=== PATIENT | male | born 1940 ===

== ENCOUNTER 2016-10-04 14:03 | Inpatient (IN) | payer MEDICARE, MEDICAID ==
[2016-10-04 14:03] VITALS: BMI 51.5
[2016-10-04] MEDS ORDERED: Sodium Chloride 0.9% 1,000 ML IV STA (14:45)
[2016-10-04] MEDS ORDERED: Insulin Regular 100 units/ml IVP ONE ×2 (15:03→17:11)
--- NOTE | 2016-10-04 15:05 | ED PDOC ---
HPI: General Adult Time Seen by Provider: 10/04/16 14:45 Chief Complaint (Nursing): High Blood Sugar Chief Complaint (Provider): high blood sugar History Per: Patient History/Exam Limitations: no limitations Current Symptoms Are (Timing): Still Present Severity: Severe Recently: Treated By A Physician ([facility]) Additional History Per: Prior Records Additional Complaint(s): 76yo male Hx DM sent by PMD for general weakness, elevated blood sugars. Denies fever, cough, chest pain, syncope. Does admit to polyuria, denies abdominal pain. Denies black or maroon stools. Denies BRBPR, hematuria or hemoptysis. PMD: Dr. Madrigal per patient Past Medical History Reviewed: Historical Data, Nursing Documentation, Vital Signs Vital Signs: Last Vital Signs Temp 98.0 F 10/05/16 16:00 Pulse 63 10/05/16 16:00 Resp 18 10/05/16 16:00 BP 108/66 10/05/16 16:00 Pulse Ox 97 10/05/16 16:35 - Medical History PMH: Diabetes (type II) Denies: HIV, Chronic Kidney Disease - Family History Family History: States: Diabetes - Social History Current smoker - smoking cessation education provided: No Drugs: Denies - Immunization History Hx Tetanus Toxoid Vaccination: No Hx Influenza Vaccination: No Hx Pneumococcal Vaccination: No - Home Medications Home Medications: Ambulatory Orders Medication Instructions Recorded Acetaminophen [Tylenol 325mg tab] 650 mg PO Q6 PRN #30 tab 09/26/16 Atorvastatin Calcium 10 mg PO DAILY #30 tablet 09/26/16 Enalapril Maleate [Vasotec] 2.5 mg PO DAILY #30 tab 09/26/16 Glimepiride [Amaryl] 4 mg PO BID #60 tablet 09/26/16 Insulin Glargine, Recombina 10 units SQ HS #100 unit 09/26/16 [Lantus] Linagliptin [Tradjenta] 5 mg PO DAILY #30 tablet 09/26/16 Pioglitazone HCl 30 mg PO DAILY #30 tablet 09/26/16 SITagliptin [Januvia] 100 mg PO DAILY #30 tab 09/26/16 - Allergies Allergies/Adverse Reactions: Allergies Allergy/AdvReac Type Severity Reaction Status Date / Time No Known Allergies Allergy Verified 09/11/15 13:57 Review of Systems ROS Statement: Except As Marked, All Systems Reviewed And Found Negative Constitutional: Negative for: Fever Cardiovascular: Negative for: Chest Pain Respiratory: Negative for: Cough Gastrointestinal: Negative for: Abdominal Pain Genitourinary Male: Positive for: Other (polyuria) Physical Exam - Reviewed Nursing Documentation Reviewed: Yes Vital Signs Reviewed: Yes - Physical Exam Appears: Positive for: Well (frail appearing, dehydrated appearing, communicative, no distress), Non-toxic, No Acute Distress Head Exam: Positive for: ATRAUMATIC, NORMAL INSPECTION, NORMOCEPHALIC Skin: Positive for: Warm, Dry Eye Exam: Positive for: EOMI, PERRL Cardiovascular/Chest: Positive for: Regular Rate, Rhythm Respiratory: Positive for: Normal Breath Sounds. Negative for: Rales, Rhonchi, Wheezing Gastrointestinal/Abdominal: Positive for: Soft. Negative for: Tenderness Extremity: Positive for: Other (bilateral index fingers with bleeding under the nail but patient denies any trauma - appearance of fungal infections. Neurologically intact) Neurologic/Psych: Positive for: Alert, Oriented. Negative for: Motor/Sensory Deficits - Laboratory Results Result Diagrams: 10/05/16 10:27 10/04/16 14:50 - ECG O2 Sat by Pulse Oximetry: 97 (RA) Pulse Ox Interpretation: Normal Medical Decision Making Medical Decision Makin accuchek was 496, therefore IV fluids and insulin therapy was initiated. will reeval after bloodwork is back. bloodwork revealed Hgb 7.6, per chart guiac negative last visit. Marked hyperglycemia without evidence of DKA. D/w hospitalist Dr Michel who states she spoke to Dr Madrigal and he is not known patient to practice, thus admitted to medicine train electronic technician for further workup. Glycemic control initiated in ED. Crossmatch 2 units PRBC obtained, consent for transfusion obtained and witnessed by RN. Care was transferred to admitting team. Disposition - Clinical Impression Clinical Impression: Hyperglycemia, Anemia - Patient ED Disposition Is Patient to be Admitted: Yes Counseled Patient/Family Regarding: Studies Performed, Diagnosis - Disposition Disposition Time: 16:00 (approx) Condition: FAIR - Pt Status Changed To: Hospital Disposition Of: Observation - POA Present On Arrival: Poor Glycemic Control Additional Comments - Additional Comments Additional Comments: Scribe Attestation: Documented by Nick Shaikh acting as a scribe for Juan Daniel Ramirez DO. Provider Scribe Attestation: All medical record entries made by the Scribe were at my direction and personally dictated by me. I have reviewed the chart and agree that the record accurately reflects my personal performance of the history, physical exam, medical decision making, and the department course for this patient. I have also personally directed, reviewed, and agree with the discharge instructions and disposition.
[2016-10-04] MEDS ORDERED: Insulin Regular 100 units/ml ONE (15:16)
[2016-10-04 15:55] LABS: BASO # 0.1 K/uL (0.0-0.2); BASO % 1.5 % (0.0-2.0); EOS # 0.6 K/uL (0.0-0.7); EOS % 8.5 % (0.0-4.0); HEMATOCRIT 25.9 % (35.0-51.0); LYMPH % 14.4 % (20.0-40.0); MEAN CELL VOLUME 68.5 fl (80.0-94.0); MEAN CORPUSCULAR HEMOGLOBIN 20.2 pg (27.0-31.0); MEAN CORPUSCULAR HGB CONC 29.4 g/dL (33.0-37.0); MEAN PLATELET VOLUME 9.2 fl (7.2-11.7); MONO # 0.7 K/uL (0.0-0.8); MONO % 10.1 % (0.0-10.0); NEUT # 4.7 K/uL (1.8-7.0); NEUT % 65.5 % (50.0-75.0); RED CELL DISTRIBUTION WIDTH 26.9 % (11.5-14.5); WHITE BLOOD COUNT 7.2 K/uL (4.8-10.8)
[2016-10-04 16:08] LABS: ALKALINE PHOSPHATASE 97 U/L (38-126); ALT/SGPT 27 U/L (21-72); AST/SGOT 21 U/L (17-59); BILIRUBIN,TOTAL 0.2 mg/dl (0.2-1.3); BLOOD UREA NITROGEN 17 mg/dl (9-20); CARBON DIOXIDE 26 mmol/L (22-30); CHLORIDE 92 mmol/L (98-107); GFR AFRICAN-AMERICAN > 60; POTASSIUM 4.4 MMOL/L (3.6-5.0); SODIUM 127 mmol/l (132-148)
[2016-10-04 16:10] LABS: TOTAL PROTEIN 7.4 G/DL (6.3-8.2)
[2016-10-04 16:28] LABS: ALB/GLOB RATIO 1.1 (1.0-2.1)
[2016-10-04 16:31] LABS: GLUCOSE,RANDOM 441 mg/dL (75-110)
[2016-10-04 18:21] LABS: RBC URINE 22 /hpf (0-3); URINE BACTERIA RARE (<OCC); URINE BILIRUBIN NEGATIVE (NEGATIVE); URINE BLOOD NEGATIVE (NEGATIVE); URINE COLOR YELLOW (YELLOW); URINE GLUCOSE (UA) >=500 mg/dL (Normal); URINE KETONE NEGATIVE (NEGATIVE); URINE LEUKOCYTE ESTERASE LARGE Leu/uL (Negative); URINE PROTEIN NEGATIVE (NEGATIVE); URINE UROBILINOGEN 0.2-1.0 mg/dL (0.2-1.0); WBC URINE 51 /hpf (0-5)
[2016-10-04] MEDS ORDERED: Insulin Detemir 100 Units/ml Inj SC SCH (23:00)
[2016-10-04] MEDS: Insulin Regular 100 units/ml SC SCH (23:13)
[2016-10-05] MEDS: Insulin Regular 100 units/ml SC SCH ×2 (06:46→13:31)
[2016-10-05] MEDS ORDERED: Pneumococcal 23-Valent Vaccine IM ONE (07:00)
--- NOTE | 2016-10-05 07:15 | CARD ---
APPROVED REPORT EKG Measurement Heart [id number] <Conclusion> Sinus rhythm with premature atrial complexes Otherwise normal ECG
[2016-10-05] MEDS: Enoxaparin 40 mg Syringe SC SCH (09:22)
[2016-10-05] MEDS: GlipiZIDE 10 mg SR Tab PO SCH ×2 (09:23→18:07)
--- NOTE | 2016-10-05 10:21 | CP.PCM.CON ---
Past Patient History - Past Medical History & Family History Past Medical History?: Yes - Past Social History Smoking Status: Current Some Days Smoker - CARDIAC Hx Cardiac Disorders: No - PULMONARY Hx Respiratory Disorders: No - NEUROLOGICAL Hx Neurological Disorder: No - HEENT Hx HEENT Problems: No - RENAL Hx Chronic Kidney Disease: No - ENDOCRINE/METABOLIC Hx Endocrine Disorders: Yes Hx Diabetes Mellitus Type 2: Yes - HEMATOLOGICAL/ONCOLOGICAL Hx Human Immunodeficiency Virus (HIV): No - INTEGUMENTARY Hx Dermatological Problems: No - MUSCULOSKELETAL/RHEUMATOLOGICAL Hx Falls: No - GASTROINTESTINAL Hx Gastrointestinal Disorders: No - GENITOURINARY/GYNECOLOGICAL Hx Genitourinary Disorders: No - PSYCHIATRIC Hx Substance Use: No - SURGICAL HISTORY Hx Surgeries: Yes Hx Herniorrhaphy: Yes (inguinal x2) - ANESTHESIA Hx Anesthesia: Yes Hx Anesthesia Reactions: No Hx Malignant Hyperthermia: No Meds Allergies/Adverse Reactions: Allergies Allergy/AdvReac Type Severity Reaction Status Date / Time No Known Allergies Allergy Verified 09/11/15 13:57 - Medications Medications: Current Medications Acetaminophen (Tylenol 325mg Tab) 650 mg PO Q6 PRN PRN Reason: Pain, Mild (1-3) Atorvastatin Calcium (Lipitor) 10 mg PO DAILY [facility] Last Admin: 10/05/16 09:22 Dose: 10 mg Enalapril Maleate (Vasotec) 2.5 mg PO BID [facility] Last Admin: 10/05/16 09:22 Dose: 2.5 mg Enoxaparin Sodium (Lovenox) 40 mg SC DAILY [facility] PRN Reason: Protocol Last Admin: 10/05/16 09:22 Dose: 40 mg Glipizide (Glucotrol Xl) 10 mg PO BIDWM [facility] Last Admin: 10/05/16 09:23 Dose: 10 mg Insulin Detemir (Levemir) 10 units SC [facility] Last Admin: 10/04/16 23:14 Dose: 10 units Insulin Human Regular (Humulin R) 0 units SC ACCU-CHECK [facility] PRN Reason: Protocol Last Admin: 10/05/16 06:46 Dose: Not Given Sitagliptin Phosphate (Januvia) 100 mg PO DAILY [facility] Last Admin: 10/05/16 09:23 Dose: 100 mg Results - Vital Signs Recent Vital Signs: Last Vital Signs Temp 97.9 F 10/05/16 08:16 Pulse 73 10/05/16 08:16 Resp 18 10/05/16 08:16 BP 151/77 H 10/05/16 08:16 Pulse Ox 100 10/05/16 08:16 - Labs Result Diagrams: 10/04/16 14:50 10/04/16 14:50 Labs: Laboratory Results - last 24 hr 10/04/16 10/04/16 10/04/16 17:07 17:21 17:38 POC Glucose (mg/dL) 203 H Urine Color Yellow Urine Clarity Slighty-cloudy Urine pH 7.0 Ur Specific [place] 1.033 H Urine Protein Negative Urine Glucose (UA) >=500 Urine Ketones Negative Urine Blood Negative Urine Nitrate Negative Urine Bilirubin Negative Urine Urobilinogen 0.2-1.0 Ur Leukocyte Esterase Large Urine RBC (Auto) 22 H Urine Microscopic WBC 51 H Ur Squamous Epith Cells 1 Urine Bacteria Rare Urine Yeast (Budding) Occ H Blood Type A POSITIVE Antibody Screen Negative Crossmatch IS Only See Detail BBK History Checked Patient has bt 10/04/16 10/05/16 22:07 05:51 POC Glucose (mg/dL) 362 H 123 H Urine Color Urine Clarity Urine pH Ur Specific [place] Urine Protein Urine Glucose (UA) Urine Ketones Urine Blood Urine Nitrate Urine Bilirubin Urine Urobilinogen Ur Leukocyte Esterase Urine RBC (Auto) Urine Microscopic WBC Ur Squamous Epith Cells Urine Bacteria Urine Yeast (Budding) Blood Type Antibody Screen Crossmatch IS Only BBK History Checked
[2016-10-05 10:34] LABS: HEMATOCRIT 29.1 % (35.0-51.0); MEAN CORPUSCULAR HEMOGLOBIN 21.9 pg (27.0-31.0); MEAN CORPUSCULAR HGB CONC 30.7 g/dL (33.0-37.0); RED CELL DISTRIBUTION WIDTH 27.5 % (11.5-14.5)
[2016-10-05 10:38] LABS: MEAN CELL VOLUME 71.3 fl (80.0-94.0)
[2016-10-05 10:50] LABS: IRON 103 ug/dL (49-181)
--- NOTE | 2016-10-05 11:52 | RAD ---
HISTORY: SOB COMPARISON: 09/23/2026 FINDINGS: LUNGS: No active pulmonary disease. PLEURA: Probable eventration right hemidiaphragm, unchanged. No pleural effusion. No pneumothorax. CARDIOVASCULAR: Normal. OSSEOUS STRUCTURES: No significant abnormalities. VISUALIZED UPPER ABDOMEN: Normal. OTHER FINDINGS: None. IMPRESSION: No active disease.
--- NOTE | 2016-10-05 13:53 | CP.PCM.HP ---
<Natasha Lyles - Last Filed: 10/05/16 13:41> History of Present Illness - History of Present Illness History of Present Illness: 76 y/o insulin dependent Type II diabetic, HTN and HLD presented to ED with cc of weakness and polyuria, ED work up pt was anemic and very hyperglycemic, but was admitted for transfusion and diabetes control. pt seen and examined at bedside, denies bleeding anyway, denies abdominal pain,headache, visual changes , chest pain or sob. states he feels better. Does admitted the weakness he was feeling did start a couple of days prior to coming to ED. Present on Admission - Present on Admission Any Indicators Present on Admission: Yes History of Uncontrolled Diabetes: Yes Review of Systems - Review of Systems All systems: reviewed and no additional remarkable complaints except Review of Systems: Per HPI Past Patient History - Past Medical History & Family History Past Medical History?: Yes - Past Social History Smoking Status: Current Some Days Smoker - CARDIAC Hx Cardiac Disorders: No - PULMONARY Hx Respiratory Disorders: No - NEUROLOGICAL Hx Neurological Disorder: No - HEENT Hx HEENT Problems: No - RENAL Hx Chronic Kidney Disease: No - ENDOCRINE/METABOLIC Hx Endocrine Disorders: Yes Hx Diabetes Mellitus Type 2: Yes - HEMATOLOGICAL/ONCOLOGICAL Hx Human Immunodeficiency Virus (HIV): No - INTEGUMENTARY Hx Dermatological Problems: No - MUSCULOSKELETAL/RHEUMATOLOGICAL Hx Falls: No - GASTROINTESTINAL Hx Gastrointestinal Disorders: No - GENITOURINARY/GYNECOLOGICAL Hx Genitourinary Disorders: No - PSYCHIATRIC Hx Substance Use: No - SURGICAL HISTORY Hx Surgeries: Yes Hx Herniorrhaphy: Yes (inguinal x2) - ANESTHESIA Hx Anesthesia: Yes Hx Anesthesia Reactions: No Hx Malignant Hyperthermia: No Meds Allergies/Adverse Reactions: Allergies Allergy/AdvReac Type Severity Reaction Status Date / Time No Known Allergies Allergy Verified 10/07/16 18:19 Physical Exam - Constitutional Appears: No Acute Distress, Older Than Stated Age Additional comments: very fragile appearing - Head Exam Head Exam: NORMOCEPHALIC - Eye Exam Eye Exam: Normal appearance - ENT Exam ENT Exam: Mucous Membranes Moist - Respiratory Exam Respiratory Exam: Clear to Auscultation Bilateral, NORMAL BREATHING PATTERN. absent: Wheezes - Cardiovascular Exam Cardiovascular Exam: REGULAR RHYTHM, +S1, +S2 - GI/Abdominal Exam GI & Abdominal Exam: Normal Bowel Sounds, Soft. absent: Tenderness - Extremities Exam Extremities exam: Negative for: calf tenderness, joint swelling, pedal edema - Neurological Exam Neurological exam: Alert, CN II-XII Intact, Oriented x3 Results - Vital Signs Recent Vital Signs: Last Vital Signs Temp 97.9 F 10/05/16 09:00 Pulse 73 10/05/16 09:00 Resp 18 10/05/16 09:00 BP 151/77 H 10/05/16 09:00 Pulse Ox 100 10/05/16 09:00 - Labs Result Diagrams: 10/05/16 10:27 10/04/16 14:50 Assessment & Plan - Assessment and Plan (Free Text) Assessment: 76 y/o male insulin dependent type II diabetic with HTN and HLD admitted for anemia and hyperglycemia Plan: 1. Anemia Source unknown GI and Hematology consulted Anemia work up ordered/ follow up results Transfused blood last night f/u cbc 2. Hyperglycemia currently controlled continue with home regime of 100mg januvia daily, 30mg of Pioglitazone, 5mg of tradjenta, 4mg of Amaryl and 10 units of lantus HS accuchecks hypoglycemic protocol Endocrinology consulted 3. HTN resume home med of Vasotec 4. HLD Continue Atorvastatin 5. Diet diabetic heart healthy 6. DVT prophylaxis lovenox 7. PT eval and treat ordered <Geraldo Shelton - Last Filed: 10/08/16 12:38> Results - Vital Signs Recent Vital Signs: Last Vital Signs Temp 97.9 F 10/07/16 17:48 Pulse 83 10/07/16 17:48 Resp 20 10/07/16 17:48 BP 150/88 10/07/16 17:48 Pulse Ox 99 10/07/16 17:48 - Labs Result Diagrams: 10/07/16 06:30 10/07/16 06:30 Labs: Laboratory Results - last 24 hr 10/07/16 10/07/16 05:34 16:28 POC Glucose (mg/dL) 306 H 128 H Assessment & Plan - Assessment and Plan (Free Text) Assessment: Patient was personally seen and examined by me in rounds with residents. Available labs and diagnostic data reviewed. Case, Patient's condition and management plan discussed with residents in rounds. Agree with resident's documentation. Plan: As ordered. Geraldo Shelton MD
[2016-10-05] MEDS: Insulin Lispro (humaLOG) 100 Units/ml Inj SC SCH ×3 (18:07→22:42)
[2016-10-05 18:38] LABS: FOLATE > 20.0 ng/mL
--- NOTE | 2016-10-05 21:07 | CON ---
DATE: 10/05/2016 LOCATION: Room 410. HISTORY OF PRESENT ILLNESS: This is a 76-year-old male with a known history of type 2 insulin-requir ing diabetes, presenting here with generalized body weakness and supervening marked hyperglycemic acc elerations and is now being referred for diabetic evaluation and management. He also has marked anem ia and is undergoing Hemoccult hematologic workup and management at this time. PAST MEDICAL HISTORY: As mentioned above, history of type 2 requiring type diabetes on a combination of oral hypoglycemic therapy and basal insulin given as Lantus at 10 units subQ at bedtime daily. H e is also on Amaryl given as 4 mg b.i.d., Januvia at 100 mg daily and Actos at 30 mg daily, history o f hypertension and dyslipidemia. FAMILY HISTORY: Positive for hypertension and diabetes. SOCIAL HISTORY: The patient has a supportive family. No known substance use. REVIEW OF SYSTEMS: As mentioned above, admits to generalized body weakness with episodic dizziness a nd lightheadedness, worse on the day of admission. No chest pains or palpitations, but admits to occ asional shortness of breath, especially on exertion. His oral intake is variable with nausea, dyspep poli, and vague upper abdominal pains. Also, admits to marked polyuria, nocturia and polydipsia, and about a 5-pound or so weight loss. PHYSICAL EXAMINATION: GENERAL: This is an average built male in no apparent distress. VITAL SIGNS: Blood pressure 144/82, pulse of 70 beats per minute and regular, temperature 98, respir ations 20. Height is 5 feet 7 inches, weight is 120 pounds. HEENT: Head normocephalic. Eyes anicteric with pink conjunctivae. Fundoscopy not possible at this time. Ears, nose and throat otherwise normal. NECK: Supple. Thyroid gland is normal size. No carotid bruits or any cervical adenopathy. CARDIOPULMONARY: Has an adynamic precordium. S1, S2 is rapid and regular. LUNGS: Clear to auscultation. ABDOMEN: Flat, soft with positive bowel sounds. EXTREMITIES: No peripheral edema. Pulses are +2 bilaterally. LABORATORY DATA: The chemistry showed a BUN of 17, sodium 127, potassium 4.4, chloride 92, CO2 of 26 , glucose 441 and creatinine 0.8. The initial glucose level was 496 mg/dL. ASSESSMENT: This is a 76-year-old male with uncontrolled and decompensated type 2 insulin-requiring diabetes with marked hyperglycemic accelerations related to a subtherapeutic insulin regimen and is n ow being referred for diabetic evaluation and management. 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 PLAN OF MANAGEMENT: As discussed with the patient and the staff. Will modify his current insulin re gimen and switch him over to a more physiologic basal and bolus drug combination with Levemir to be g iven at 16 units subcutaneously at bedtime daily to start tonight. Will also add Humalog given as 6 units subQ t.i.d. before meals to start at dinnertime today as ordered. Will modify the coverage sca le to obviate hypoglycemia and detailed orders have been given for a low dose algorithm using Humalog insulin as given. Will also continue the Januvia given as 100 mg daily. Will obtain serial industrial chemistry teacher jayden and supplement accordingly as needed. Will also obtain a hemoglobin A1c to confirm his prior gl ycemic control and baseline studies and lipid panel will be ordered. Will obtain serial chemis tries and supplement accordingly as needed. Will follow. Chasidy Chaudhari MD cc: [id number] TT: 10/05/2016 21:06:58 Confirmation # [id number] Dictation # [id number] mert
[2016-10-05] MEDS ORDERED: Insulin Detemir 100 Units/ml Inj SC SCH (22:00)
--- NOTE | 2016-10-05 23:02 | CP.PCM.CON ---
History of Present Illness - History of Present Illness History of Present Illness: Consult requested by Dr Shelton- This is a 76 y/o insulin dependent Type II diabetic, HTN and HLD admitted with weakness and polyuria in setting of uncontrolled hyperglycemia. GI consulted for anemia which seems chronic with baseline Hb 9-10 since 2013. He was seen at bedside and is unkept with bad personal hygiene. His FOBt is negative and he denies endoscopy/ colonoscopy in the past. He has been asking for more food as per nursing staff. He denies hematemesis, dark stools and rectal bleeding. He denies nausea, vomiting and fever, chills Review of Systems - Review of Systems Review of Systems: 12 point ROS unremarkable except that documented in HPI Past Patient History - Past Medical History & Family History Past Medical History?: Yes - Past Social History Drugs: Denies - CARDIAC Hx Cardiac Disorders: No - PULMONARY Hx Respiratory Disorders: No - NEUROLOGICAL Hx Neurological Disorder: No - HEENT Hx HEENT Problems: No - RENAL Hx Chronic Kidney Disease: No - ENDOCRINE/METABOLIC Hx Endocrine Disorders: Yes Hx Diabetes Mellitus Type 2: Yes - HEMATOLOGICAL/ONCOLOGICAL Hx Human Immunodeficiency Virus (HIV): No - INTEGUMENTARY Hx Dermatological Problems: No - MUSCULOSKELETAL/RHEUMATOLOGICAL Hx Falls: No - GASTROINTESTINAL Hx Gastrointestinal Disorders: No - GENITOURINARY/GYNECOLOGICAL Hx Genitourinary Disorders: No - PSYCHIATRIC Hx Substance Use: No - SURGICAL HISTORY Hx Surgeries: Yes Hx Herniorrhaphy: Yes (inguinal x2) - ANESTHESIA Hx Anesthesia: Yes Hx Anesthesia Reactions: No Hx Malignant Hyperthermia: No Meds Allergies/Adverse Reactions: Allergies Allergy/AdvReac Type Severity Reaction Status Date / Time No Known Allergies Allergy Verified 09/11/15 13:57 - Medications Medications: Current Medications Acetaminophen (Tylenol 325mg Tab) 650 mg PO Q6 PRN PRN Reason: Pain, Mild (1-3) Atorvastatin Calcium (Lipitor) 10 mg PO DAILY [facility] Last Admin: 10/05/16 09:22 Dose: 10 mg Enalapril Maleate (Vasotec) 2.5 mg PO BID [facility] Last Admin: 10/05/16 16:36 Dose: 2.5 mg Enoxaparin Sodium (Lovenox) 40 mg SC DAILY [facility] PRN Reason: Protocol Last Admin: 10/05/16 09:22 Dose: 40 mg Glipizide (Glucotrol Xl) 10 mg PO BIDWM [facility] Last Admin: 10/05/16 18:07 Dose: 10 mg Iron Sucrose 200 mg/ Sodium (Chloride) 110 mls @ 110 mls/hr IVPB DAILY [facility] Stop: 10/08/16 10:31 Last Admin: 10/05/16 13:30 Dose: 110 mls/hr Insulin Detemir (Levemir) 16 units SC HS [facility] Last Admin: 10/05/16 22:43 Dose: 16 units Insulin Human Lispro (Humalog) 6 units SC AC [facility] Last Admin: 10/05/16 18:07 Dose: 6 unit Insulin Human Lispro (Humalog) 0 units SC ACHS [facility] PRN Reason: Protocol Last Admin: 10/05/16 22:42 Dose: Not Given Sitagliptin Phosphate (Januvia) 100 mg PO DAILY [facility] Last Admin: 10/05/16 09:23 Dose: 100 mg Physical Exam - Constitutional Appears: Non-toxic, No Acute Distress, Unkempt - Head Exam Head Exam: ATRAUMATIC, NORMAL INSPECTION, NORMOCEPHALIC - Respiratory Exam Respiratory Exam: Clear to Auscultation Bilateral, NORMAL BREATHING PATTERN - Cardiovascular Exam Cardiovascular Exam: REGULAR RHYTHM, RRR, +S1, +S2 - GI/Abdominal Exam GI & Abdominal Exam: Normal Bowel Sounds, Soft Additional comments: Non tender. No guarding - Extremities Exam Extremities exam: Positive for: normal inspection - Neurological Exam Neurological exam: Alert, CN II-XII Intact, Normal Gait, Oriented x3, Reflexes Normal - Psychiatric Exam Psychiatric exam: Normal Affect, Normal Mood Results - Vital Signs Recent Vital Signs: Last Vital Signs Temp 97.8 F 10/05/16 19:40 Pulse 85 10/05/16 19:40 Resp 20 10/05/16 19:40 BP 126/74 10/05/16 19:40 Pulse Ox 99 10/05/16 19:40 - Labs Result Diagrams: 10/05/16 10:27 10/04/16 14:50 Labs: Laboratory Results - last 24 hr 10/05/16 10/05/16 16:35 21:31 POC Glucose (mg/dL) 238 H 136 H Assessment & Plan - Assessment and Plan (Free Text) Assessment: 76 yr old M with poor compliance admitted with anemia and hyperglycemia. Anemia seems chronic with no overt/ occult GI hemorrhage. Will benefit from outpatient bi directional luminal exam once acute hyperglycemia has resolved. Currently he is ambivalent. Plan: - Trend daily Hb/Hct - Anemia work up - Hematology consult - no urgent indication for luminal exam - Send iron studies and peripheral smear - Diet as tolerated - Occult negative - GI prophylaxis - Date & Time Date: 10/05/16 Time: 23:00
--- NOTE | 2016-10-06 02:16 | CP.PCM.CON ---
History of Present Illness - History of Present Illness History of Present Illness: 76 year old male with a history of DM, HTN, HL, admitted with fatigue and polyuria, found to be anemic. The patient reports to increasing weakness over the last 2 weeks. He states he was told he was anemic but is unclear of the work up in the past. He denies abnormal bleeding and bruising. He has no fevers and chills. Past medical history: DM, HTN, HL Past surgical history: None Family history: Denies hematologic and oncologic problems Social history: Denies tobacco, alcohol, and illicit drug use. Allergies: NKA Review of systems: All remaining review of systems including HEENT, cardiovascular, respiratory, gastrointestinal, genitourinary, musculoskeletal, dermatologic, neurologic, and psychiatric are negative unless mentioned in the history of present illness. Past Patient History - Past Medical History & Family History Past Medical History?: Yes - Past Social History Drugs: Denies - CARDIAC Hx Cardiac Disorders: No - PULMONARY Hx Respiratory Disorders: No - NEUROLOGICAL Hx Neurological Disorder: No - HEENT Hx HEENT Problems: No - RENAL Hx Chronic Kidney Disease: No - ENDOCRINE/METABOLIC Hx Endocrine Disorders: Yes Hx Diabetes Mellitus Type 2: Yes - HEMATOLOGICAL/ONCOLOGICAL Hx Human Immunodeficiency Virus (HIV): No - INTEGUMENTARY Hx Dermatological Problems: No - MUSCULOSKELETAL/RHEUMATOLOGICAL Hx Falls: No - GASTROINTESTINAL Hx Gastrointestinal Disorders: No - GENITOURINARY/GYNECOLOGICAL Hx Genitourinary Disorders: No - PSYCHIATRIC Hx Substance Use: No - SURGICAL HISTORY Hx Surgeries: Yes Hx Herniorrhaphy: Yes (inguinal x2) - ANESTHESIA Hx Anesthesia: Yes Hx Anesthesia Reactions: No Hx Malignant Hyperthermia: No Meds Allergies/Adverse Reactions: Allergies Allergy/AdvReac Type Severity Reaction Status Date / Time No Known Allergies Allergy Verified 09/11/15 13:57 - Medications Medications: Current Medications Acetaminophen (Tylenol 325mg Tab) 650 mg PO Q6 PRN PRN Reason: Pain, Mild (1-3) Atorvastatin Calcium (Lipitor) 10 mg PO DAILY [facility] Last Admin: 10/05/16 09:22 Dose: 10 mg Enalapril Maleate (Vasotec) 2.5 mg PO BID [facility] Last Admin: 10/05/16 16:36 Dose: 2.5 mg Enoxaparin Sodium (Lovenox) 40 mg SC DAILY [facility] PRN Reason: Protocol Last Admin: 10/05/16 09:22 Dose: 40 mg Glipizide (Glucotrol Xl) 10 mg PO BIDWM [facility] Last Admin: 10/05/16 18:07 Dose: 10 mg Iron Sucrose 200 mg/ Sodium (Chloride) 110 mls @ 110 mls/hr IVPB DAILY [facility] Stop: 10/08/16 10:31 Last Admin: 10/05/16 13:30 Dose: 110 mls/hr Insulin Detemir (Levemir) 16 units SC HS [facility] Last Admin: 10/05/16 22:43 Dose: 16 units Insulin Human Lispro (Humalog) 6 units SC AC [facility] Last Admin: 10/05/16 18:07 Dose: 6 unit Insulin Human Lispro (Humalog) 0 units SC ACHS [facility] PRN Reason: Protocol Last Admin: 10/05/16 22:42 Dose: Not Given Sitagliptin Phosphate (Januvia) 100 mg PO DAILY [facility] Last Admin: 10/05/16 09:23 Dose: 100 mg Physical Exam - Head Exam Head Exam: ATRAUMATIC - Eye Exam Eye Exam: Normal appearance - ENT Exam ENT Exam: Mucous Membranes Dry - Respiratory Exam Respiratory Exam: NORMAL BREATHING PATTERN - Cardiovascular Exam Cardiovascular Exam: +S1, +S2 - GI/Abdominal Exam GI & Abdominal Exam: Normal Bowel Sounds - Extremities Exam Extremities exam: Positive for: normal inspection - Neurological Exam Neurological exam: Oriented x3 - Psychiatric Exam Psychiatric exam: Normal Affect, Normal Mood - Skin Skin Exam: Warm Results - Vital Signs Recent Vital Signs: Last Vital Signs Temp 98.4 F 10/06/16 00:06 Pulse 80 10/06/16 00:06 Resp 18 10/06/16 00:06 BP 148/77 10/06/16 00:06 Pulse Ox 100 10/06/16 00:06 - Labs Result Diagrams: 10/05/16 10:27 10/04/16 14:50 Labs: Laboratory Results - last 24 hr 10/05/16 10/05/16 16:35 21:31 POC Glucose (mg/dL) 238 H 136 H Assessment & Plan (1) Anemia Assessment and Plan: work up consistent with iron deficiency transfusion support will start IV iron GI evaluation Thank you for this interesting consult. Status: Acute
[2016-10-06 07:09] LABS: HEMATOCRIT 29.1 % (35.0-51.0); MEAN CELL VOLUME 71.5 fl (80.0-94.0); MEAN CORPUSCULAR HEMOGLOBIN 22.2 pg (27.0-31.0); MEAN CORPUSCULAR HGB CONC 31.1 g/dL (33.0-37.0); WHITE BLOOD COUNT 8.9 K/uL (4.8-10.8)
[2016-10-06 07:17] LABS: ALKALINE PHOSPHATASE 81 U/L (38-126); ALT/SGPT 25 U/L (21-72); AST/SGOT 25 U/L (17-59); BILIRUBIN,TOTAL 0.2 mg/dl (0.2-1.3); BLOOD UREA NITROGEN 13 mg/dl (9-20); CALCIUM 8.4 mg/dL (8.4-10.2); CARBON DIOXIDE 29 mmol/L (22-30); CHLORIDE 102 mmol/L (98-107); CHOLESTEROL 103 mg/dL (0-199); GFR AFRICAN-AMERICAN > 60; GLUCOSE,RANDOM 66 mg/dL (75-110); POTASSIUM 3.9 MMOL/L (3.6-5.0); SODIUM 133 mmol/l (132-148); TOTAL PROTEIN 6.4 G/DL (6.3-8.2)
[2016-10-06 07:36] LABS: THYROID STIMULATING HORMONE 0.79 mIU/ML (0.46-4.68)
[2016-10-06] MEDS: Insulin Lispro (humaLOG) 100 Units/ml Inj SC SCH ×7 (08:01→22:44)
[2016-10-06] MEDS: GlipiZIDE 10 mg SR Tab PO SCH ×2 (08:39→17:54)
[2016-10-06] MEDS: Enoxaparin 40 mg Syringe SC SCH (08:43)
--- NOTE | 2016-10-06 12:49 | CP.PCM.PN ---
<RafalNatasha - Last Filed: 10/06/16 12:50> Subjective - Date & Time of Evaluation Date of Evaluation: 10/06/16 Time of Evaluation: 08:35 - Subjective Subjective: Pt seen and examined at bedside, states he feels fine. denies any weakness, sugars are better now. denies any dizziness, nausea or vomiting. Objective - Vital Signs/Intake and Output Vital Signs (last 24 hours): Temp Pulse Resp BP Pulse Ox 98.5 F 79 18 130/76 98 10/06/16 12:25 10/06/16 12:25 10/06/16 12:25 10/06/16 12:25 10/06/16 12:25 - Medications Medications: Current Medications Acetaminophen (Tylenol 325mg Tab) 650 mg PO Q6 PRN PRN Reason: Pain, Mild (1-3) Atorvastatin Calcium (Lipitor) 10 mg PO DAILY [facility] Last Admin: 10/06/16 08:40 Dose: 10 mg Enalapril Maleate (Vasotec) 2.5 mg PO BID [facility] Last Admin: 10/06/16 08:41 Dose: 2.5 mg Enoxaparin Sodium (Lovenox) 40 mg SC DAILY [facility] PRN Reason: Protocol Last Admin: 10/06/16 08:43 Dose: 40 mg Glipizide (Glucotrol Xl) 10 mg PO BIDWM [facility] Last Admin: 10/06/16 08:39 Dose: 10 mg Iron Sucrose 200 mg/ Sodium (Chloride) 110 mls @ 110 mls/hr IVPB DAILY [facility] Stop: 10/08/16 10:31 Last Admin: 10/06/16 08:42 Dose: 110 mls/hr Insulin Detemir (Levemir) 16 units SC HS [facility] Last Admin: 10/05/16 22:43 Dose: 16 units Insulin Human Lispro (Humalog) 6 units SC AC [facility] Last Admin: 10/06/16 12:04 Dose: 6 unit Insulin Human Lispro (Humalog) 0 units SC ACHS [facility] PRN Reason: Protocol Last Admin: 10/06/16 12:05 Dose: 2 unit Sitagliptin Phosphate (Januvia) 100 mg PO DAILY [facility] Last Admin: 10/06/16 08:40 Dose: 100 mg - Labs Labs: 10/06/16 06:25 10/06/16 06:25 - Constitutional Appears: Non-toxic, No Acute Distress - Head Exam Head Exam: NORMOCEPHALIC - Eye Exam Eye Exam: Normal appearance - ENT Exam ENT Exam: Mucous Membranes Moist - Respiratory Exam Respiratory Exam: Clear to Ausculation Bilateral, NORMAL BREATHING PATTERN. absent: Rhonchi, Wheezes - Cardiovascular Exam Cardiovascular Exam: REGULAR RHYTHM, +S1, +S2 - GI/Abdominal Exam GI & Abdominal Exam: Soft, Normal Bowel Sounds. absent: Tenderness - Extremities Exam Extremities Exam: absent: Calf Tenderness, Pedal Edema - Neurological Exam Neurological Exam: Alert, Awake Assessment and Plan - Assessment and Plan (Free Text) Assessment: 76 y/o male insulin dependent type II diabetic with HTN and HLD admitted for anemia and hyperglycemia Plan: 1. Anemia Source unknown GI and Hematology recommendations appreciated Per hematology work up indicate iron deficiency, pt started on IV iron 2. Hyperglycemia - resolved currently controlled continue with home regime of 100mg januvia daily, 30mg of Pioglitazone, 5mg of tradjenta, 4mg of Amaryl and 10 units of lantus HS accuchecks hypoglycemic protocol Endocrinology consulted 3. HTN resume home med of Vasotec 4. HLD Continue Atorvastatin 5. Diet diabetic heart healthy 6. DVT prophylaxis lovenox 7. PT eval and treat ordered <Geraldo Shelton - Last Filed: 10/08/16 12:41> Objective - Vital Signs/Intake and Output Vital Signs (last 24 hours): Temp Pulse Resp BP Pulse Ox 97.9 F 83 20 150/88 99 10/07/16 17:48 10/07/16 17:48 10/07/16 17:48 10/07/16 17:48 10/07/16 17:48 - Labs Labs: 10/07/16 06:30 10/07/16 06:30 Assessment and Plan - Assessment and Plan (Free Text) Assessment: Patient was personally seen and examined by me in rounds with residents. Available labs and diagnostic data reviewed. Case, Patient's condition and management plan discussed with residents in rounds. Agree with resident's documentation. Plan: As ordered. Geraldo Shelton MD
--- NOTE | 2016-10-06 16:24 | CP.PCM.PN ---
Subjective - Date & Time of Evaluation Date of Evaluation: 10/06/16 Time of Evaluation: 16:22 - Subjective Subjective: RFV: Anemia S: No signs of bleeding. No nausea, vomiting, abdominal pain. Tolerating diet. Objective - Vital Signs/Intake and Output Vital Signs (last 24 hours): Temp Pulse Resp BP Pulse Ox 98.5 F 79 18 130/76 98 10/06/16 12:25 10/06/16 12:25 10/06/16 12:25 10/06/16 12:25 10/06/16 12:25 - Medications Medications: Current Medications Acetaminophen (Tylenol 325mg Tab) 650 mg PO Q6 PRN PRN Reason: Pain, Mild (1-3) Atorvastatin Calcium (Lipitor) 10 mg PO DAILY [facility] Last Admin: 10/06/16 08:40 Dose: 10 mg Enalapril Maleate (Vasotec) 2.5 mg PO BID [facility] Last Admin: 10/06/16 08:41 Dose: 2.5 mg Enoxaparin Sodium (Lovenox) 40 mg SC DAILY [facility] PRN Reason: Protocol Last Admin: 10/06/16 08:43 Dose: 40 mg Glipizide (Glucotrol Xl) 10 mg PO BIDWM [facility] Last Admin: 10/06/16 08:39 Dose: 10 mg Iron Sucrose 200 mg/ Sodium (Chloride) 110 mls @ 110 mls/hr IVPB DAILY [facility] Stop: 10/08/16 10:31 Last Admin: 10/06/16 08:42 Dose: 110 mls/hr Insulin Detemir (Levemir) 12 units SC HS [facility] Insulin Human Lispro (Humalog) 0 units SC ACHS [facility] PRN Reason: Protocol Last Admin: 10/06/16 12:05 Dose: 2 unit Insulin Human Lispro (Humalog) 4 units SC AC [facility] Sitagliptin Phosphate (Januvia) 100 mg PO DAILY [facility] Last Admin: 10/06/16 08:40 Dose: 100 mg - Labs Labs: 10/06/16 06:25 10/06/16 06:25 - Constitutional Appears: Chronically Ill - Head Exam Head Exam: ATRAUMATIC, NORMOCEPHALIC - Eye Exam Eye Exam: Normal appearance - ENT Exam ENT Exam: Mucous Membranes Moist - Respiratory Exam Respiratory Exam: NORMAL BREATHING PATTERN. absent: Wheezes, Respiratory Distress - GI/Abdominal Exam GI & Abdominal Exam: Soft. absent: Tenderness - Neurological Exam Neurological Exam: Alert Assessment and Plan - Assessment and Plan (Free Text) Assessment: 76 year old male with poor compliance admitted with anemia and hyperglycemia. 1. Iron deficiency anemia Plan: - recommend outpatient egd and colonoscopy - patient currently declines evaluation - recommended endoscopic evaluation to him and family members at bedside to exclude the possibility of a GI malignancy, they acknowledged this - diet as tolerated - will sign off at this time
--- NOTE | 2016-10-06 16:24 | PN ---
DATE: 10/06/2016 ROOM: 410 SUBJECTIVE: This is a 76-year-old male with recent uncontrolled type 2 insulin-requiring diabetes wi th extremes of glycemic fluctuation related to the variability of his oral intake and is now being fo llowed closely for metabolic management. He also presented here with marked anemia and currently und ergoing hematologic workup as noted thereof. His latest CBC showed a hemoglobin of 9 with a hematocr it of 29.1. His latest chemistry showed a BUN of 13, sodium 133, potassium 3.9, chloride 102, CO2 of 29, glucose 66 and creatinine 0.5. His hemoglobin A1c is 10.2%, which is quite elevated and indicat tj of suboptimal metabolic control of his diabetic condition. His glucose levels have ranged from 6 6-103 and 308 mg/dL. So, at this time, we will modify his basal and bolus insulin regimen and lower the Levemir to 12 unit s subQ at bedtime daily to start tonight. We will titrate incrementally as indicated to optimize met abolic control. We will also lower the Humalog from 6 units to 4 units subQ t.i.d. before meals as g iven and this will be started tonight as ordered. We will titrate incrementally as indicated to opti trever metabolic control. We will obtain serial chemistries and supplement accordingly as needed. We will follow. Chasidy Chaudhari MD cc: [id number] TT: 10/06/2016 16:24:09 Confirmation # [id number] Dictation # [id number] sn
[2016-10-06 17:13] VITALS: RESP 20
[2016-10-06] MEDS ORDERED: Insulin Detemir 100 Units/ml Inj SC SCH (22:00)
[2016-10-07 07:12] LABS: ALKALINE PHOSPHATASE 92 U/L (38-126); ALT/SGPT 32 U/L (21-72); AST/SGOT 27 U/L (17-59); BILIRUBIN,TOTAL 0.2 mg/dl (0.2-1.3); BLOOD UREA NITROGEN 14 mg/dl (9-20); CALCIUM 8.3 mg/dL (8.4-10.2); CARBON DIOXIDE 24 mmol/L (22-30); CHLORIDE 101 mmol/L (98-107); GFR AFRICAN-AMERICAN > 60; GLUCOSE,RANDOM 292 mg/dL (75-110); POTASSIUM 4.4 MMOL/L (3.6-5.0); SODIUM 132 mmol/l (132-148)
[2016-10-07 07:51] LABS: HEMATOCRIT 31.1 % (35.0-51.0); MEAN CELL VOLUME 72.6 fl (80.0-94.0); MEAN CORPUSCULAR HEMOGLOBIN 22.1 pg (27.0-31.0); MEAN CORPUSCULAR HGB CONC 30.5 g/dL (33.0-37.0); RED CELL DISTRIBUTION WIDTH 28.8 % (11.5-14.5); WHITE BLOOD COUNT 7.3 K/uL (4.8-10.8)
[2016-10-07] MEDS: Insulin Lispro (humaLOG) 100 Units/ml Inj SC SCH ×5 (08:19→16:42)
[2016-10-07] MEDS: GlipiZIDE 10 mg SR Tab PO SCH ×2 (08:25→16:42)
[2016-10-07] MEDS: Enoxaparin 40 mg Syringe SC SCH ×2 (08:25→08:40)
--- NOTE | 2016-10-07 13:24 | PQF ANEMIA ---
Iron deficiency anemia from chronic GI blood loss. This form is a permanent part of the medical record 10/07/16 Dr. Isabel Torres, Would you please further clarify the Iron Deficiency Anemia after workup. Admitted with weakness, polyuria and elevated blood sugars. Denies BRBPR, black stools. H&H 7.6/25.9, Iron 103, TIBC 333, % saturation 31 and stool for occult blood +. Treated with GI, Hematology consults, transfusion of PRBC and Iron infusion. Clarification of your documentation is requested to better reflect the severity of illness and intensity of treatment of your patient. Indicators present [x] Anemia [x] H&H : 7.6/25.9 [] Hypotension ] GI Bleed [x] Transfusion(s) [] Acute bleed other sites [] Tachycardia [] Surgical Procedure Blood Loss (expected not a complication) [x] Stool occult + Location in the medical record that reflects the above clinical findings: [] Treatment Provided: [x] Transfusion of PRBC and Venofer PHYSICIAN'S RESPONSE Based on your medical judgment of the clinical indicators outlined above, are you treating this patient for a known or suspected: Iron deficiency anemia : [ ] Due to Chronic blood loss anemia, [ ] Due to Acute blood loss anemia [ ] Due to Other iron deficiency anemia [ ] Iron deficiency anemia unspecified [ ] Other anemia (please specify) [ ] Unable to determine [ ] Unknown Present On Admission (POA) Indicator: [] Present at the time of admission [] Not present at the time of admission [] Clinically Undetermined In responding to this query, please exercise your independent professional judgment. The fact that a question is asked does not imply that any particular answer is desired or expected. Thank you for your clarification on this documentation. If you have any questions please call:[phone] * Thank you, Corry Jaramillo RN CDMP MTDD
--- NOTE | 2016-10-07 15:06 | CP.PCM.PN ---
<Natasha Lyles - Last Filed: 10/07/16 15:09> Subjective - Date & Time of Evaluation Date of Evaluation: 10/07/16 Time of Evaluation: 09:55 - Subjective Subjective: Pt seen and evaluated at bedside, denies any pain, feeling ok. asked why he declined colonoscopy; states he just does not want it, and understand why it is important Objective - Vital Signs/Intake and Output Vital Signs (last 24 hours): Temp Pulse Resp BP Pulse Ox 98.4 F 86 20 146/97 H 98 10/07/16 08:32 10/07/16 10:47 10/07/16 08:32 10/07/16 08:32 10/07/16 10:47 - Medications Medications: Current Medications Acetaminophen (Tylenol 325mg Tab) 650 mg PO Q6 PRN PRN Reason: Pain, Mild (1-3) Atorvastatin Calcium (Lipitor) 10 mg PO DAILY [facility] Last Admin: 10/07/16 08:24 Dose: 10 mg Enalapril Maleate (Vasotec) 2.5 mg PO BID [facility] Last Admin: 10/07/16 08:24 Dose: 2.5 mg Enoxaparin Sodium (Lovenox) 40 mg SC DAILY [facility] PRN Reason: Protocol Last Admin: 10/07/16 08:40 Dose: Not Given Glipizide (Glucotrol Xl) 10 mg PO BIDWM [facility] Last Admin: 10/07/16 08:25 Dose: 10 mg Iron Sucrose 200 mg/ Sodium (Chloride) 110 mls @ 110 mls/hr IVPB DAILY [facility] Stop: 10/08/16 10:31 Last Admin: 10/07/16 13:15 Dose: 110 mls/hr Insulin Detemir (Levemir) 12 units SC HS [facility] Last Admin: 10/06/16 22:43 Dose: 12 u Insulin Human Lispro (Humalog) 0 units SC ACHS [facility] PRN Reason: Protocol Last Admin: 10/07/16 12:11 Dose: 4 unit Insulin Human Lispro (Humalog) 4 units SC AC [facility] Last Admin: 10/07/16 12:12 Dose: 4 u Sitagliptin Phosphate (Januvia) 100 mg PO DAILY [facility] Last Admin: 10/07/16 08:24 Dose: 100 mg - Labs Labs: 10/07/16 06:30 10/07/16 06:30 - Constitutional Appears: Non-toxic, No Acute Distress - Head Exam Head Exam: NORMOCEPHALIC - ENT Exam ENT Exam: Mucous Membranes Moist - Respiratory Exam Respiratory Exam: Clear to Ausculation Bilateral, NORMAL BREATHING PATTERN. absent: Rhonchi, Wheezes - Cardiovascular Exam Cardiovascular Exam: REGULAR RHYTHM, +S1, +S2 - GI/Abdominal Exam GI & Abdominal Exam: Soft, Normal Bowel Sounds. absent: Tenderness - Extremities Exam Extremities Exam: absent: Calf Tenderness - Neurological Exam Neurological Exam: Alert, Awake, CN II-XII Intact, Oriented x3 Assessment and Plan - Assessment and Plan (Free Text) Assessment: 76 y/o male insulin dependent type II diabetic with HTN and HLD admitted for anemia and hyperglycemia Plan: 1. Anemia Source unknown GI and Hematology recommendations appreciated Per hematology work up indicate iron deficiency, pt started on IV iron Pt decline GI work up 2. Hyperglycemia sugar gets elevated due to pt's noncompliance to dietary restrictions continue with home regime of 100mg januvia daily, 30mg of Pioglitazone, 5mg of tradjenta, 4mg of Amaryl and 10 units of lantus HS accuchecks hypoglycemic protocol Endocrinology consulted 3. HTN resume home med of Vasotec 4. HLD Continue Atorvastatin 5. Diet diabetic heart healthy 6. DVT prophylaxis lovenox 7. PT eval and treat ordered discharge disposition: social studies teacher contacted, as pt would benefit from assistance <Geraldo Shelton - Last Filed: 10/08/16 12:44> Objective - Vital Signs/Intake and Output Vital Signs (last 24 hours): Temp Pulse Resp BP Pulse Ox 97.9 F 83 20 150/88 99 10/07/16 17:48 10/07/16 17:48 10/07/16 17:48 10/07/16 17:48 10/07/16 17:48 - Labs Labs: 10/07/16 06:30 10/07/16 06:30 Assessment and Plan - Assessment and Plan (Free Text) Assessment: Patient was personally seen and examined by me in rounds with residents. Available labs and diagnostic data reviewed. Case, Patient's condition and management plan discussed with residents in rounds. Agree with resident's documentation. Plan: As ordered. Geraldo Shelton MD
--- NOTE | 2016-10-07 16:21 | PN ---
DATE: 10/07/2016 ROOM: 652 This is a 76-year-old male with recent uncontrolled type 2 insulin-requiring diabetes, now being foll owed closely for metabolic management. His oral intake remains quite variable at this time and the l atest chemistries showed a BUN of 14, sodium 132, potassium 4.4, chloride 101, CO2 24, glucose 292, a nd creatinine 0.6. His glucose levels have ranged from 121-409 mg/dL. At this time, we will modify his basal and bolus insulin regimen and increase the Levemir to 16 units subQ at bedtime daily to sta rt tonight. We will titrate incrementally as indicated to optimize metabolic control. Will also con tinue the low-dose correction scale using Humalog insulin as given. Will also titrate his mealtime o r prandial insulin to higher dose of Humalog given as 6 units subQ t.i.d. before meals as ordered. W e will continue the dual oral hypoglycemic drug therapy as given, so we will continue the Januvia giv en as 100 mg daily and glipizide given as 10 mg b.i.d. before meals as ordered. Will titrate increme ntally as indicated to optimize metabolic control. We will follow and advise accordingly. Chasidy Chaudhari MD cc: [id number] TT: 10/07/2016 16:21:28 Confirmation # [id number] Dictation # [id number]
[2016-10-07] MEDS ORDERED: Insulin Lispro (humaLOG) 100 Units/ml Inj SC SCH (16:30)
[2016-10-07 17:49] VITALS: BP 150/88; PULSE 83; TEMP 97.9; O2SAT 99
[2016-10-07] MEDS ORDERED: Insulin Detemir 100 Units/ml Inj SC SCH (22:00)
== END 2016-10-07 18:44 | DRG 812 ==
LOC: H.ER 14:03 → H.ERHOLD 16:20 → H.TEL 21:31 → OBSVTOIN 10-05 11:58 → H.MEDSURG1 10-06 16:38
PROVIDERS: ADMIT Internal Medicine; ATTEND Internal Medicine
PROC: 30233N1 Transfusion of Nonautologous Red Blood Cells into Peripheral Vein, Percutaneous Approach (ICD-10-PCS; principal; 2016-10-04)
PROC: 3E0234Z Introduction of Serum, Toxoid and Vaccine into Muscle, Percutaneous Approach (ICD-10-PCS; 2016-10-05)
DX: D50.0 Iron deficiency anemia secondary to blood loss (chronic) (principal); E11.42 Type 2 diabetes mellitus with diabetic polyneuropathy; E11.65 Type 2 diabetes mellitus with hyperglycemia; I10 Essential (primary) hypertension; Z79.4 Long term (current) use of insulin; E78.5 Hyperlipidemia, unspecified; E11.319 Type 2 diabetes mellitus with unspecified diabetic retinopathy without macular edema; Z23 Encounter for immunization

== ENCOUNTER 2016-10-07 17:25 | Inpatient (IN) | payer OTHER, MEDICAID ==
[2016-10-07 18:10] VITALS: BMI 18.8
[2016-10-07 19:06] VITALS: RESP 20
[2016-10-07 21:57] VITALS: O2SAT 100
[2016-10-07] MEDS: Insulin Lispro (humaLOG) 100 Units/ml Inj SC SCH (22:02)
[2016-10-07] MEDS: Insulin Detemir 100 Units/ml Inj SC SCH (22:04)
[2016-10-08 04:56] LABS: HEMATOCRIT 29.5 % (35.0-51.0); MEAN CELL VOLUME 74.2 fl (80.0-94.0); MEAN CORPUSCULAR HEMOGLOBIN 22.4 pg (27.0-31.0); MEAN CORPUSCULAR HGB CONC 30.2 g/dL (33.0-37.0); RED CELL DISTRIBUTION WIDTH 28.9 % (11.5-14.5); WHITE BLOOD COUNT 10.7 K/uL (4.8-10.8)
[2016-10-08 05:09] LABS: ALKALINE PHOSPHATASE 86 U/L (38-126); ALT/SGPT 31 U/L (21-72); AST/SGOT 24 U/L (17-59); BILIRUBIN,TOTAL < 0.1 mg/dl (0.2-1.3); BLOOD UREA NITROGEN 17 mg/dl (9-20); CALCIUM 8.2 mg/dL (8.4-10.2); CARBON DIOXIDE 24 mmol/L (22-30); CHLORIDE 104 mmol/L (98-107); GFR AFRICAN-AMERICAN > 60; GLUCOSE,RANDOM 185 mg/dL (75-110); POTASSIUM 4.4 MMOL/L (3.6-5.0); SODIUM 138 mmol/l (132-148); TOTAL PROTEIN 6.4 G/DL (6.3-8.2)
[2016-10-08 05:45] LABS: ALB/GLOB RATIO 1.1 (1.0-2.1)
[2016-10-08] MEDS: Insulin Lispro (humaLOG) 100 Units/ml Inj SC SCH ×7 (07:01→22:35)
[2016-10-08] MEDS ORDERED: Insulin Lispro (humaLOG) 100 Units/ml Inj SC SCH (07:30)
[2016-10-08] MEDS ORDERED: Enoxaparin 40 mg Syringe SC SCH (09:00)
[2016-10-08] MEDS: GlipiZIDE 10 mg SR Tab PO SCH ×2 (09:16→17:33)
--- NOTE | 2016-10-08 13:19 | HP ---
Date of admission to transitional care unit is 10/07/2016. CHIEF COMPLAINT: Transferred from medical floor. HISTORY OF PRESENT ILLNESS: This is a 76-year-old male with type 2 diabetes, hypertension, elevated cholesterol, who was admitted to medical floor for anemia and was treated accordingly. The patient b ecame stable and was transferred to the transitional care unit for further optimization and completio n of treatment. The patient feels okay. Denies any specific complaint. No chest pain, no shortness of breath. REVIEW OF SYSTEMS: Negative for headache, dizziness, syncope, loss of consciousness, chest pain, young rtness of breath, nausea, vomiting, diarrhea, constipation, any new joint or extremity pain. Review of systems of all other organ systems is unremarkable. PAST MEDICAL HISTORY: Significant for diabetes, hypertension, elevated cholesterol. PAST SURGICAL HISTORY: Unremarkable. PERSONAL HISTORY: The patient is nonsmoker, nondrinker, no substance abuse. MEDICATIONS: The patient is on multiple medications, which is as per reconciliation sheet, which was reviewed in order. ALLERGIES: The patient is not allergic to any medication. FAMILY HISTORY: Noncontributory. PHYSICAL EXAMINATION: GENERAL: Well-built, well-nourished 76-year-old male in no acute distress. VITAL SIGNS: Temperature afebrile, pulse 78, respirations 18, blood pressure 140/80. HEENT AND NECK: Pupils reacting to light. No JVD, no thyromegaly, no lymphadenopathy, no nystagmus. Normocephalic, atraumatic skull. HEART: S1, S2 normal, regular. No significant murmur, gallop or rub is heard. LUNGS: Shows good bilateral air entry. No rales or rhonchi. ABDOMEN: Soft, nontender, no organomegaly, no fluid. Bowel sounds are plus. EXTREMITIES: No edema, no calf swelling, no tenderness, no acute ischemia. CENTRAL NERVOUS SYSTEM: Essentially unchanged. DIAGNOSTIC DATA: Available diagnostic data reviewed. ADMITTING IMPRESSION: Anemia, type 2 diabetes with hyperglycemia, hypertension, elevated cholesterol . PLAN: As ordered. Case and plan discussed with patient. Geraldo Shelton MD cc: [id number] TT: 10/08/2016 13:19:00 rn
[2016-10-08 20:39] VITALS: BP 101/56; PULSE 94; TEMP 98.2
[2016-10-08 21:43] LABS: MEAN CELL VOLUME 73.4 fl (80.0-94.0); MEAN CORPUSCULAR HEMOGLOBIN 22.9 pg (27.0-31.0); MEAN CORPUSCULAR HGB CONC 31.2 g/dL (33.0-37.0); RED CELL DISTRIBUTION WIDTH 29.1 % (11.5-14.5); WHITE BLOOD COUNT 9.2 K/uL (4.8-10.8)
[2016-10-08] MEDS: Insulin Detemir 100 Units/ml Inj SC SCH (22:38)
== END 2016-10-08 22:43 | disposition short-term general hospital (02) | DRG 812 ==
LOC: H.TCU 18:12
PROVIDERS: ADMIT Internal Medicine; ATTEND Internal Medicine
DX: D64.9 Anemia, unspecified (principal); E11.65 Type 2 diabetes mellitus with hyperglycemia; K92.1 Melena; I10 Essential (primary) hypertension; E78.00 Pure hypercholesterolemia, unspecified

== ENCOUNTER 2016-10-08 23:13 | Inpatient (IN) | payer MEDICARE, MEDICAID ==
[2016-10-08 23:13] VITALS: BMI 18.8
[2016-10-08] MEDS ORDERED: Sodium Chloride 0.9% 1,000 ML IV STA (23:26)
--- NOTE | 2016-10-08 23:45 | ED PDOC ---
HPI:Nausea, Vomiting, Diarrhea Time Seen by Provider: 10/08/16 23:20 Chief Complaint (Nursing): GI Problem Chief Complaint (Provider): BRBPR x 1 day History Per: Patient, Other (nursing staff) History/Exam Limitations: no limitations Onset/Duration Of Symptoms: Days (1) Current Symptoms Are (Timing): Still Present Severity: Moderate Pain Scale Rating Of: 0 Last Bowel Movement: Today Additional Complaint(s): PAtient is a 76 yo male who is transferred from TCU to Ed for eval of BRBPR x 1 day. Nursing staff report multiple episodes throughout day. Pt's initial Hgb was 8 however this PM fell to 5. Pt denies associated N/V, abdominal pain. He was admitted 4 days ago for GI bleed and subsequently transferred to TCU, Past Medical History Reviewed: Historical Data, Nursing Documentation, Vital Signs Vital Signs: Last Vital Signs Temp 99.0 F 10/08/16 23:15 Pulse 101 H 10/08/16 23:15 Resp 16 10/08/16 23:15 BP 118/64 10/08/16 23:15 Pulse Ox 99 10/08/16 23:15 - Medical History PMH: Diabetes (type II), HTN Denies: HIV, Chronic Kidney Disease - Family History Family History: States: Diabetes - Social History Current smoker - smoking cessation education provided: No Ex-Smoker (has not smoked in the last 12 months): No Alcohol: None Drugs: Denies - Immunization History Hx Tetanus Toxoid Vaccination: No Hx Influenza Vaccination: No Hx Pneumococcal Vaccination: No - Home Medications Home Medications: Ambulatory Orders Medication Instructions Recorded Acetaminophen [Tylenol 325mg tab] 650 mg PO Q6 PRN #30 tab 09/26/16 Atorvastatin Calcium 10 mg PO DAILY #30 tablet 09/26/16 Enalapril Maleate [Vasotec] 2.5 mg PO DAILY #30 tab 09/26/16 Glimepiride [Amaryl] 4 mg PO BID #60 tablet 09/26/16 Insulin Glargine, Recombina 10 units SQ HS #100 unit 09/26/16 [Lantus] Linagliptin [Tradjenta] 5 mg PO DAILY #30 tablet 09/26/16 Pioglitazone HCl 30 mg PO DAILY #30 tablet 09/26/16 SITagliptin [Januvia] 100 mg PO DAILY #30 tab 09/26/16 - Allergies Allergies/Adverse Reactions: Allergies Allergy/AdvReac Type Severity Reaction Status Date / Time No Known Allergies Allergy Verified 10/07/16 18:19 Review of Systems ROS Statement: Except As Marked, All Systems Reviewed And Found Negative Gastrointestinal: Positive for: Hematochezia Physical Exam - Reviewed Nursing Documentation Reviewed: Yes Vital Signs Reviewed: Yes - Physical Exam Appears: Positive for: No Acute Distress Head Exam: Positive for: ATRAUMATIC, NORMOCEPHALIC Skin: Positive for: Normal Color, Warm, Dry Eye Exam: Positive for: Normal appearance, EOMI, PERRL ENT: Positive for: Normal ENT Inspection Neck: Positive for: Normal, Painless ROM, Supple Cardiovascular/Chest: Positive for: Regular Rate, Rhythm Respiratory: Positive for: Normal Breath Sounds. Negative for: Crackles, Rales , Wheezing Gastrointestinal/Abdominal: Positive for: Normal Exam, Bowel Sounds, Soft. Negative for: Tenderness Back: Positive for: Normal Inspection. Negative for: L CVA Tenderness, R CVA Tenderness Neurologic/Psych: Positive for: Alert, Oriented. Negative for: Motor/Sensory Deficits - Laboratory Results Result Diagrams: 10/08/16 00:08 10/08/16 00:08 - ECG O2 Sat by Pulse Oximetry: 99 - Critical Care Total Time (In Min): 60 Medical Decision Making Medical Decision Makin yo male with acute hematochezia Labs, IV fluids, Chest Xray ordered; Cross match ordered in anticipation of transfusion. Consent obtained by provider. Patient placed on Protonix drip. Case d/w Dr Shelton and Dr Siddiqi for ICU placement Chest Xray NAD Disposition - Clinical Impression Clinical Impression: Gastrointestinal hemorrhage, Anemia - Patient ED Disposition Is Patient to be Admitted: Yes - Disposition Disposition Time: 23:30 Condition: STABLE - Pt Status Changed To: Hospital Disposition Of: Inpatient - Admit Certification Admit to Inpatient:: After my assessment, the patient will require hospitalization for at least two midnights. This is because of the severity of symptoms shown, intensity of services needed, and/or the medical risk in this patient being treated as an outpatient. - POA Present On Arrival: Poor Glycemic Control
--- NOTE | 2016-10-08 23:50 | CP.PCM.CON ---
History of Present Illness - History of Present Illness History of Present Illness: Attending: Geraldo Shelton Reason For Consult: Critical care Management HPI: The hx is obtained from review of the medical records as the patient has poor memory. He is a 76 years old male with hx of DM II, HTN, HLD discharged from the TCU to the ED for admission to the [facility] because of multiple episodes of bright red blood per rectum. The patient was admitted to the [facility] on 10/04/16 with dx of Generalized weakness of Symptomatic Anemia for transfusion. He refused Colonoscopy, was stabilized and transferred to the TCU on 10/07/16 for continued care. Today he started having bouts of bloody stool. No abdominal pain, chest pain nor SOB,In the ED his Hb was 5.9g which is a decrease from 8.9g on the morning of this admission. PMH: HTN; HLD; DM II; Anemia PSH: Inguinal hernia repair SH: Former smoking of Cigarettes; No Alcohol use; No illegal drug use FH; No known family hx Allergies: NKDA Review of Systems - Review of Systems Review of Systems: Review of systems is limited because of poor memory and believability. - Constitutional Constitutional: absent: Chills, Fatigue, Fever, Headache, Lethargy - EENT Eyes: Requires Corrective Lenses. absent: Diplopia, Floaters, Photophobia Ears: absent: Decreased Hearing, Ear Discharge, Ear Pain, Tinnitus Nose/Mouth/Throat: absent: Epistaxis, Nasal Congestion, Nasal Discharge, Sinus Pain, Sinus Pressure, Sore Throat - Cardiovascular Cardiovascular: absent: Chest Pain, Dyspnea, Edema, Lightheadedness - Respiratory Respiratory: absent: Cough, Dyspnea, Wheezing, Stridor - Gastrointestinal Gastrointestinal: Hematochezia. absent: Abdominal Pain, Diarrhea, Nausea, Vomiting - Genitourinary Genitourinary: absent: Dysuria, Urinary Frequency, Freq UTI - Musculoskeletal Musculoskeletal: absent: Back Pain, Joint Swelling, Muscle Cramps, Myalgias, Neck Pain - Integumentary Integumentary: absent: Pruritus, Rash, Skin Ulcer, Sores, Striae, Swelling - Neurological Neurological: absent: Confusion, Dizziness, Headaches, Memory Loss, Paresthesias , Weakness - Psychiatric Psychiatric: absent: Anxiety, Confusion, Panic Attacks Additional comments: Poor memory. - Endocrine Endocrine: absent: Palpitations, Polydipsia, Polyphagia, Polyuria - Hematologic/Lymphatic Hematologic: absent: Easy Bleeding, Easy Bruising Past Patient History - Past Medical History & Family History Past Medical History?: Yes - Past Social History Smoking Status: Current Some Days Smoker Chewing Tobacco Use: No Cigar Use: No Alcohol: None Drugs: Denies Home Situation {Lives}: Alone - CARDIAC Hx Hypertension: Yes - PULMONARY Hx Respiratory Disorders: No - NEUROLOGICAL Hx Neurological Disorder: No - HEENT Hx HEENT Problems: No - RENAL Hx Chronic Kidney Disease: No - ENDOCRINE/METABOLIC Hx Endocrine Disorders: Yes Hx Diabetes Mellitus Type 2: Yes - HEMATOLOGICAL/ONCOLOGICAL Hx Blood Disorders: No Hx Human Immunodeficiency Virus (HIV): No - INTEGUMENTARY Hx Dermatological Problems: No - MUSCULOSKELETAL/RHEUMATOLOGICAL Hx Falls: No - GASTROINTESTINAL Hx Gastrointestinal Disorders: No - GENITOURINARY/GYNECOLOGICAL Hx Genitourinary Disorders: No - PSYCHIATRIC Hx Substance Use: No - SURGICAL HISTORY Hx Surgeries: Yes Hx Herniorrhaphy: Yes (inguinal x2) - ANESTHESIA Hx Anesthesia: Yes Hx Anesthesia Reactions: No Hx Malignant Hyperthermia: No Meds Allergies/Adverse Reactions: Allergies Allergy/AdvReac Type Severity Reaction Status Date / Time No Known Allergies Allergy Verified 10/07/16 18:19 - Medications Medications: Current Medications Sodium Chloride (Sodium Chloride 0.9%) 1,000 mls @ 250 mls/hr IV .Q4H STA Stop: 10/09/16 03:25 Pantoprazole Sodium 40 mg/ (Sodium Chloride) 100 mls @ 20 mls/hr IV .Q5H LEAH PRN Reason: 8 MG/HR Physical Exam - Constitutional Appears: No Acute Distress - Head Exam Head Exam: ATRAUMATIC, NORMAL INSPECTION, NORMOCEPHALIC - Eye Exam Eye Exam: EOMI, Normal appearance Pupil Exam: NORMAL ACCOMODATION, PERRL - ENT Exam ENT Exam: Mucous Membranes Moist, Normal Exam, Normal External Ear Exam, Normal Oropharynx - Neck Exam Neck exam: Positive for: Normal Inspection. Negative for: Lymphadenopathy, Tenderness - Respiratory Exam Respiratory Exam: absent: Clear to Auscultation Bilateral, Rales, Rhonchi, Wheezes - Cardiovascular Exam Cardiovascular Exam: REGULAR RHYTHM, RRR, +S1, +S2 - Extremities Exam Extremities exam: Positive for: normal inspection - Back Exam Back exam: NORMAL INSPECTION. absent: CVA tenderness (L), CVA tenderness (R) - Neurological Exam Neurological exam: Alert, CN II-XII Intact, Normal Gait, Oriented x3, Reflexes Normal - Psychiatric Exam Psychiatric exam: Normal Affect, Normal Mood - Skin Skin Exam: Dry, Intact, Warm Results - Vital Signs Recent Vital Signs: Last Vital Signs Temp 99.0 F 10/08/16 23:15 Pulse 101 H 10/08/16 23:15 Resp 16 10/08/16 23:15 BP 118/64 10/08/16 23:15 Pulse Ox 99 10/08/16 23:45 - Labs Result Diagrams: 10/08/16 00:08 10/08/16 00:08 Assessment & Plan - Assessment and Plan (Free Text) Assessment: #. GI bleed #. Anemia #. DM II #. HTN #. Elevated BUN from the GI bleed Plan: 76 years old male with hx of DM II, HTN, HLD discharged from the TCU to the ED for admission to the [facility] because of multiple episodes of bright red blood per rectum. In the ED his Hb was 5.9g which is a decrease from 8.9g on the morning of this admission. #. GI bleed, AVM, diverticular bleed vs colonic polyp bleed r/o Colon malignancy - Consult Dr Guthrie for colonoscopy/ Endoscopy - IV Pantoprozole - NPO #. Anemia due to Blood loss anemia - Transfer 2 units of PRBC - Consult Dr Torres Hematology - Follow HB #. DM II - Oral anticoagulants on hold - Regular insulin Sliding #. HTN - Oral anti- hypertensive medication s of - Metoprolol IV Q6H - Follow Blood pressures #. Elevated BUN from the GI bleed - Follow renal labs #. Code Status: full Thank you for this consult and we will follow the patient with you. - Date & Time Date: 10/08/16 Time: 23:50
[2016-10-09 00:12] LABS: BASO # 0.1 K/uL (0.0-0.2); BASO % 0.8 % (0.0-2.0); EOS # 0.9 K/uL (0.0-0.7); EOS % 9.9 % (0.0-4.0); HEMATOCRIT 18.7 % (35.0-51.0); LYMPH # 1.5 K/uL (1.0-4.3); MEAN CELL VOLUME 73.9 fl (80.0-94.0); MEAN CORPUSCULAR HEMOGLOBIN 23.3 pg (27.0-31.0); MEAN CORPUSCULAR HGB CONC 31.6 g/dL (33.0-37.0); MEAN PLATELET VOLUME 7.7 fl (7.2-11.7); MONO # 0.7 K/uL (0.0-0.8); MONO % 7.8 % (0.0-10.0); NEUT # 6.2 K/uL (1.8-7.0); NEUT % 65.5 % (50.0-75.0); RED CELL DISTRIBUTION WIDTH 28.8 % (11.5-14.5); WHITE BLOOD COUNT 9.5 K/uL (4.8-10.8)
[2016-10-09 00:22] LABS: ALB/GLOB RATIO 0.9 (1.0-2.1); ALKALINE PHOSPHATASE 69 U/L (38-126); ALT/SGPT 26 U/L (21-72); AST/SGOT 22 U/L (17-59); BILIRUBIN,TOTAL < 0.1 mg/dl (0.2-1.3); BLOOD UREA NITROGEN 24 mg/dl (9-20); CALCIUM 7.7 mg/dL (8.4-10.2); CARBON DIOXIDE 22 mmol/L (22-30); CHLORIDE 103 mmol/L (98-107); GFR AFRICAN-AMERICAN > 60; GLUCOSE,RANDOM 204 mg/dL (75-110); POTASSIUM 3.9 MMOL/L (3.6-5.0); SODIUM 135 mmol/l (132-148); TOTAL PROTEIN 5.3 G/DL (6.3-8.2)
[2016-10-09 00:29] LABS: PARTIAL THROMBOPLASTIN TIME 27.8 SECONDS (23.3-32.5)
[2016-10-09] MEDS: Pantoprazole 40 MG in Sodium Chloride 0.9% 100 ML IV SCH ×5 (01:16→22:48)
[2016-10-09] MEDS: Sodium Chloride 0.9% 1,000 ML IV SCH ×3 (05:00→17:01)
[2016-10-09] MEDS: Metoprolol 1 mg/ml Inj IVP SCH ×4 (05:00→22:45)
[2016-10-09] MEDS ORDERED: Pneumococcal 23-Valent Vaccine IM ONE (06:00)
--- NOTE | 2016-10-09 08:49 | RAD ---
HISTORY: GI Bleed COMPARISON: No prior. FINDINGS: LUNGS: No active pulmonary disease. PLEURA: No significant pleural effusion identified, no pneumothorax apparent. CARDIOVASCULAR: Normal. OSSEOUS STRUCTURES: No significant abnormalities. VISUALIZED UPPER ABDOMEN: Normal. OTHER FINDINGS: None. IMPRESSION: No active disease.
--- NOTE | 2016-10-09 10:46 | CARD ---
APPROVED REPORT EKG Measurement Heart [id number] <Conclusion> Sinus tachycardia Poor R wave progression V2 to V3 Abnormal ECG
[2016-10-09] MEDS ORDERED: Chlorhexidine Gluconate 1 APPL/PKT TP ONE (11:11)
[2016-10-09] MEDS ORDERED: Etomidate 20 mg/10ml Inj IV ONE (12:41)
--- NOTE | 2016-10-09 12:44 | HP ---
CHIEF COMPLAINT: Excessive bleeding, and severe anemia in transitional care unit. HISTORY OF PRESENT ILLNESS: This is a 76-year-old male who was recently admitted to medical floor fo r GI bleed, and after the patient refused workup the patient was transferred to [facility] for completion of treatment, where the patient continued to have excessive bleeding, and a 3rd hemo globin was done which was very severely low, so the patient was sent to the Emergency Room and was ad mitted to ICU for further management. The patient is very poor historian but feels okay, and denies any specific complaints. REVIEW OF SYSTEMS: Negative for headache, dizziness, syncope, loss of consciousness, chest pain, young rtness of breath, nausea, vomiting, diarrhea, constipation, any new joint or extremity pain. Review of systems of all other organ systems is unremarkable, except GI bleeding. PAST MEDICAL HISTORY: Significant for hypertension, elevated cholesterol, diabetes, anemia, GI bleed . PAST SURGICAL HISTORY: Remarkable for hernia repair. PERSONAL HISTORY: The patient currently smokes cigarettes, but no alcohol or substance abuse. MEDICATIONS: The patient is on multiple medications, which is as per reconciliation sheet, which was reviewed and ordered. The patient is not allergic to any medication. FAMILY HISTORY: Noncontributory. PHYSICAL EXAMINATION: Well-built, well-nourished, elderly male in no acute distress. VITAL SIGNS: Temperature 98.6, pulse 76, respirations 16, blood pressure 130/72, saturation 100%. HEENT EXAMINATION: Pupils reacting to light. No JVD, no thyromegaly, no lymphadenopathy, no nystagmus. Normocephalic, atraumatic skull. HEART EXAMINATION: S1, S2 normal, regular. No significant murmur, gallop or rub is heard. LUNG EXAMINATION: Shows good bilateral air exchange. No rales or rhonchi. ABDOMEN: Soft, nontender, no organomegaly, no fluid. Bowel sounds are plus. Stool for occult blood is negative. EXTERNAL GENITALIA: Appropriate for patient age. EXTREMITY EXAMINATION: No edema, no calf swelling, no tenderness, no acute ischemia. CENTRAL NERVOUS SYSTEM EXAMINATION: Essentially unchanged, and there is no sign of any acute gross f ocal, motor, or sensory neurological deficit. DIAGNOSTIC DATA: Available diagnostic data reviewed. WBC 9.4, hemoglobin 5.9, hematocrit 18.7, plat elets are 296. PT 9.5, INR 0.91. Sodium 135, potassium 3.9, chloride 103, bicarb 22, BUN 24, creati nine 0.6. SMA-12 is unremarkable. ADMITTING IMPRESSION: Severe symptomatic anemia, gastrointestinal bleed, hypertension, type 2 diabet es with hyperglycemia, elevated cholesterol. PLAN: As ordered. Case and plan discussed with patient. monitoring. Does not reveal signifi cant arrhythmias. Geralod Shelton MD cc: [id number] TT: 10/09/2016 12:43:44 jn
--- NOTE | 2016-10-09 12:51 | CP.PCM.CON ---
History of Present Illness - History of Present Illness History of Present Illness: Asked for a GI consultation on this patient Reason for consult: GI bleeding HPI: This is a 76 year old male with history of insulin dependent Type II diabetic, HTN and HLD who was initially admitted with weakness and polyuria in setting of uncontrolled hyperglycemia, FOBT negative chronic anemia (baseline Hb 9). EGD/ colonoscopy were recommended electively, but the patient declined. He went to TCU for rehab and developed severe hematochezia with numerous episodes of bright red blood per rectum yesterday, most recently early this morning. He was admitted to ICU with an acute drop in Hb to 5.9. He is s/p 4u PRBC. He denies any current abdominal pain, nausea or vomiting. He is currently NPO. He was initially tachycardic, now HR 70s-80s. He has never had prior endoscopic evaluation. No known history of liver disease. PMHx/PSHx: as above Allergies: NKDA FH: no known FH of liver disease/cancer SH: former smoker, denies ETOH, illicit drug use ROS: as per HPI otherwise negative in detail Review of Systems - Constitutional Constitutional: absent: Chills, Fever - Cardiovascular Cardiovascular: absent: Chest Pain - Respiratory Respiratory: absent: Cough, Dyspnea - Gastrointestinal Gastrointestinal: As Per HPI - Genitourinary Genitourinary: absent: Dysuria, Hematuria - Musculoskeletal Musculoskeletal: absent: Back Pain, Myalgias - Neurological Neurological: Weakness - Psychiatric Psychiatric: absent: Change in Appetite - Endocrine Endocrine: Fatigue Past Patient History - Past Medical History & Family History Past Medical History?: Yes - Past Social History Alcohol: None Drugs: Denies - CARDIAC Hx Hypertension: Yes - PULMONARY Hx Respiratory Disorders: No - NEUROLOGICAL Hx Neurological Disorder: No - HEENT Hx HEENT Problems: No - RENAL Hx Chronic Kidney Disease: No - ENDOCRINE/METABOLIC Hx Endocrine Disorders: Yes Hx Diabetes Mellitus Type 2: Yes - HEMATOLOGICAL/ONCOLOGICAL Hx Human Immunodeficiency Virus (HIV): No - INTEGUMENTARY Hx Dermatological Problems: No - MUSCULOSKELETAL/RHEUMATOLOGICAL Hx Falls: No - GASTROINTESTINAL Hx Gastrointestinal Disorders: No - GENITOURINARY/GYNECOLOGICAL Hx Genitourinary Disorders: No - PSYCHIATRIC Hx Substance Use: No - SURGICAL HISTORY Hx Surgeries: Yes Hx Herniorrhaphy: Yes (inguinal x2) - ANESTHESIA Hx Anesthesia: Yes Hx Anesthesia Reactions: No Hx Malignant Hyperthermia: No Meds Allergies/Adverse Reactions: Allergies Allergy/AdvReac Type Severity Reaction Status Date / Time No Known Allergies Allergy Verified 10/07/16 18:19 - Medications Medications: Current Medications Pantoprazole Sodium 40 mg/ (Sodium Chloride) 100 mls @ 20 mls/hr IV .Q5H LEAH PRN Reason: 8 MG/HR Last Admin: 10/09/16 05:45 Dose: 20 mls/hr Sodium Chloride (Sodium Chloride 0.9%) 1,000 mls @ 100 mls/hr IV .Q10H [facility] Stop: 10/10/16 04:46 Last Admin: 10/09/16 05:00 Dose: 100 mls/hr Insulin Human Regular (Humulin R) 0 units SC Q6H LEAH PRN Reason: Protocol Metoprolol Tartrate (Lopressor) 2.5 mg IVP Q6 LEAH Last Admin: 10/09/16 10:19 Dose: 2.5 mg Physical Exam - Constitutional Appears: No Acute Distress - Eye Exam Additional comments: pale conjunctiva - ENT Exam ENT Exam: Mucous Membranes Moist - Respiratory Exam Respiratory Exam: Clear to Auscultation Bilateral - Cardiovascular Exam Cardiovascular Exam: +S1, +S2 - GI/Abdominal Exam Additional comments: abdomen soft, non tender to palpation, no rebound or guarding, bowel sounds present, no palpable mass - Rectal Exam Additional comments: maroon colored stool - Extremities Exam Extremities exam: Negative for: pedal edema - Neurological Exam Neurological exam: Alert, Oriented x3 - Skin Skin Exam: Dry Results - Vital Signs Recent Vital Signs: Last Vital Signs Temp 98.6 F 10/09/16 10:00 Pulse 77 10/09/16 10:19 Resp 16 10/09/16 10:00 BP 152/92 H 10/09/16 10:19 Pulse Ox 100 10/09/16 10:00 - Labs Result Diagrams: 10/08/16 00:08 10/08/16 00:08 Labs: Laboratory Results - last 24 hr 10/09/16 10/09/16 06:01 11:59 POC Glucose (mg/dL) 98 69 Assessment & Plan - Assessment and Plan (Free Text) Assessment: This is a 76 year old male with h/o insulin dependent Type II diabetic, HTN and HLD admitted to ICU with hematochezia and acute blood loss anemia, Hb 5.9 (down from baseline 9). He is getting 4u PRBC, coags normal. No prior history of chronic liver disease. DDx brisk UGIB (r/o PUD/varices/AVM/esophagitis, etc) versus LGIB (diverticular, mass lesion, colitis etc) Plan: Maintain NPO IV PPI gtt Maintain IV access, type and screen Monitor H/H Monitor for frequency of bleeding Will plan for urgent EGD Discussed with ICU team
[2016-10-09] MEDS ORDERED: Lactated Ringer's 500 ML IV ONE ×2 (13:00)
[2016-10-09] MEDS ORDERED: Propofol 10 mg/ml Inj (20 ML) ONE (13:02)
[2016-10-09] MEDS ORDERED: EPINEPHrine 1 mg/ml (1:1000) Inj ONE (13:11)
--- NOTE | 2016-10-09 14:10 | CP.CCUPN ---
CCU Subjective - Physician Review Subjective (Free Text): RETAIL SHIFT LEADER PROGRESS NOTE Patient examined, interim events reviewed: Awake, unreliable historian, does not look distressed, had BRBPR early this AM, denies any abdominal discomfort, nausea, dizziness, headaches, CP, SOB, palpitations. Afebrile overnight, 97.9F now, 76, 140/80, 16, 100% SPO2 on nasal cannula. Limited 12H I/Os data reviewed. Completion of 4th unit PRBCs. Returned from EGD, findings reviewed. ROS: as above, no other pertinent negs or positives on 10 system review. PMFSH: all nursing and historical notes reviewed, no new pertinent data relevant to current problems. No other distress noted: EXAM- HEENT: no icterus, pupils equal and reactive NECK: no visible JVD, supple, carotids equal upstroke bilat/no bruits CHEST: decreased BS bases, no wheezes audible HEART: regular, distant, S1S2, no murmur audible, no rubs. ABD: soft, no increased distention, no focal tenderness, no HSM. BS hypoactive , EXT: no increase in leg edema, no peripheral/ digital cyanosis, no calf tenderness or palpable cords, distal pulses intact and symmetrical NEURO: no gross focal motor deficits SKIN: no rashes LABS: overnight bloodwork reviewed and listed below- WBC= 9.5 HGB= 5.9 PLTs= 296K INR= 0.91, PTT normal. Na= 135 K= 3.9 HCO3= 22 BUN/Cr= 24/0.6 BS= 204 MAJOR PROBLEMS: 1. Gastritis without active bleeding 2. Severe acute Anemia 2 GI Bleed 3. Mild Azotemia / Dehydration PLAN: 1. Repeat serial CBC 2. Repeat Coags after 4 units prbcs 3. Cautious IV Hydration. 4. Maintain normoglycemia
[2016-10-09 14:55] LABS: HEMATOCRIT 31.3 % (35.0-51.0); MEAN CORPUSCULAR HEMOGLOBIN 26.4 pg (27.0-31.0); MEAN CORPUSCULAR HGB CONC 32.5 g/dL (33.0-37.0); RED CELL DISTRIBUTION WIDTH 22.4 % (11.5-14.5); WHITE BLOOD COUNT 9.4 K/uL (4.8-10.8)
[2016-10-09 14:57] LABS: MEAN CELL VOLUME 81.2 fl (80.0-94.0)
[2016-10-09 15:10] LABS: BLOOD UREA NITROGEN 17 mg/dl (9-20); CALCIUM 7.7 mg/dL (8.4-10.2); CARBON DIOXIDE 23 mmol/L (22-30); CHLORIDE 110 mmol/L (98-107); GFR AFRICAN-AMERICAN > 60; GLUCOSE,RANDOM 71 mg/dL (75-110); POTASSIUM 3.7 MMOL/L (3.6-5.0); SODIUM 142 mmol/l (132-148)
[2016-10-09] MEDS: Insulin Regular 100 units/ml SC SCH ×2 (16:32→20:07)
[2016-10-09] MEDS ORDERED: Metoprolol 1 mg/ml Inj IVP STA (19:29)
[2016-10-10] MEDS: Insulin Regular 100 units/ml SC SCH ×5 (00:38→21:39)
[2016-10-10] MEDS: Pantoprazole 40 MG in Sodium Chloride 0.9% 100 ML IV SCH ×5 (03:05→23:59)
[2016-10-10] MEDS: Metoprolol 1 mg/ml Inj IVP SCH ×4 (04:13→21:43)
[2016-10-10 07:11] LABS: HEMATOCRIT 31.8 % (35.0-51.0); MEAN CELL VOLUME 80.5 fl (80.0-94.0); MEAN CORPUSCULAR HEMOGLOBIN 26.8 pg (27.0-31.0); MEAN CORPUSCULAR HGB CONC 33.3 g/dL (33.0-37.0); RED CELL DISTRIBUTION WIDTH 22.8 % (11.5-14.5); WHITE BLOOD COUNT 8.2 K/uL (4.8-10.8)
[2016-10-10] MEDS ORDERED: Iohexol 240 (50 ml) PO ONE (07:17)
[2016-10-10 07:22] LABS: ALKALINE PHOSPHATASE 76 U/L (38-126); ALT/SGPT 38 U/L (21-72); AST/SGOT 25 U/L (17-59); BILIRUBIN,TOTAL 0.4 mg/dl (0.2-1.3); BLOOD UREA NITROGEN 12 mg/dl (9-20); CALCIUM 7.9 mg/dL (8.4-10.2); CARBON DIOXIDE 24 mmol/L (22-30); CHLORIDE 105 mmol/L (98-107); GFR AFRICAN-AMERICAN > 60; GLUCOSE,RANDOM 146 mg/dL (75-110); POTASSIUM 3.7 MMOL/L (3.6-5.0); SODIUM 136 mmol/l (132-148); TOTAL PROTEIN 5.8 G/DL (6.3-8.2)
--- NOTE | 2016-10-10 07:48 | PN ---
DATE: 10/10/2016 The patient seen and examined. Interim events noted. Consults noted, appreciated. The patient lisa ins in intensive care unit. The patient is sleepy, arousable, feels okay. No specific complaint. N o chest pain, no shortness of breath, no bleeding. No bleeding noted by nursing staff. The patient had endoscopy yesterday. PHYSICAL EXAMINATION: GENERAL: The patient is in no acute distress. VITAL SIGNS: Stable. No orthostatic hypotension. HEART: S1, S2 normal, regular. LUNGS: Good bilateral air entry. ABDOMEN: Soft, nontender. EXTREMITIES: No edema, no calf swelling, no tenderness, no acute ischemia. CENTRAL NERVOUS SYSTEM: Essentially unchanged. DIAGNOSTIC DATA: Available reviewed. Hemoglobin is 10.2. Telemetry monitoring does not reveal sign ificant arrhythmia. The patient had excessive urine output, most likely related to endoscopy. We will monitor that today . Overall, patient's medical condition is stable. PLAN: As ordered. Case and plan was discussed with metal tester. Geraldo Shelton MD cc: [phone] TT: 10/10/2016 07:47:57 Confirmation # [id number] Dictation # [id number]
[2016-10-10 07:51] LABS: PARTIAL THROMBOPLASTIN TIME 25.7 SECONDS (23.3-32.5)
[2016-10-10] MEDS: Sodium Chloride 0.9% 1,000 ML IV SCH (08:04)
[2016-10-10] MEDS ORDERED: Iohexol 300 100 ML IJ ONE (11:06)
--- NOTE | 2016-10-10 12:57 | CT ---
PROCEDURE: CT Abdomen and Pelvis with contrast HISTORY: anemia COMPARISON: None. TECHNIQUE: Contrast dose: Radiation dose: Total exam DLP = mGy-cm. FINDINGS: LOWER THORAX: Unremarkable. LIVER: Unremarkable. No gross lesion or ductal dilatation. GALLBLADDER AND BILE DUCTS: Unremarkable. PANCREAS: Unremarkable. No gross lesion or ductal dilatation. SPLEEN: Unremarkable. ADRENALS: Unremarkable. No mass. KIDNEYS AND URETERS: Unremarkable. No hydronephrosis. No solid mass. VASCULATURE: Unremarkable. No aortic aneurysm. BOWEL: Unremarkable. No obstruction. No gross mural thickening. APPENDIX: Normal appendix. PERITONEUM: Unremarkable. No free fluid. No free air. LYMPH NODES: Unremarkable. No enlarged lymph nodes. BLADDER: Distended. REPRODUCTIVE: Markedly enlarged prostate gland. BONES: No acute fracture. OTHER FINDINGS: None. IMPRESSION: Marked enlarged prostate gland distended urinary bladder.
[2016-10-10] MEDS ORDERED: Bisacodyl 5mg EC Tab PO ONE (13:00)
--- NOTE | 2016-10-10 14:42 | CP.PCM.CON ---
History of Present Illness - History of Present Illness History of Present Illness: 76 year old male with a history of DM, HTN, HL, admitted from TCU for progressive anemia secondary to GI bleeding. The patient was recently treated for iron deficiency anemia with PRBC transfusion and IV iron. He was found to have progressive anemia with hematochezia and sent to the ICU. He is currently s/p PRBC transfusion and undergoing GI work up for the source of the GI bleed. He reports to feeling better post transfusion. Past medical history: DM, HTN, HL Past surgical history: None Family history: Denies hematologic and oncologic problems Social history: Denies tobacco, alcohol, and illicit drug use. Allergies: NKA Review of systems: All remaining review of systems including HEENT, cardiovascular, respiratory, gastrointestinal, genitourinary, musculoskeletal, dermatologic, neurologic, and psychiatric are negative unless mentioned in the history of present illness. Past Patient History - Past Medical History & Family History Past Medical History?: Yes - Past Social History Alcohol: None Drugs: Denies - CARDIAC Hx Hypertension: Yes - PULMONARY Hx Respiratory Disorders: No - NEUROLOGICAL Hx Neurological Disorder: No - HEENT Hx HEENT Problems: No - RENAL Hx Chronic Kidney Disease: No - ENDOCRINE/METABOLIC Hx Endocrine Disorders: Yes Hx Diabetes Mellitus Type 2: Yes - HEMATOLOGICAL/ONCOLOGICAL Hx Human Immunodeficiency Virus (HIV): No - INTEGUMENTARY Hx Dermatological Problems: No - MUSCULOSKELETAL/RHEUMATOLOGICAL Hx Falls: No - GASTROINTESTINAL Hx Gastrointestinal Disorders: No - GENITOURINARY/GYNECOLOGICAL Hx Genitourinary Disorders: No - PSYCHIATRIC Hx Substance Use: No - SURGICAL HISTORY Hx Surgeries: Yes Hx Herniorrhaphy: Yes (inguinal x2) - ANESTHESIA Hx Anesthesia: Yes Hx Anesthesia Reactions: No Hx Malignant Hyperthermia: No Meds Allergies/Adverse Reactions: Allergies Allergy/AdvReac Type Severity Reaction Status Date / Time No Known Allergies Allergy Verified 10/07/16 18:19 - Medications Medications: Current Medications Enalapril Maleate (Vasotec) 10 mg PO DAILY [facility] Last Admin: 10/10/16 11:59 Dose: 10 mg Pantoprazole Sodium 40 mg/ (Sodium Chloride) 100 mls @ 20 mls/hr IV Q5H [facility] Last Admin: 10/10/16 13:57 Dose: 20 mls/hr Insulin Human Regular (Humulin R) 0 units SC ACHS [facility] PRN Reason: Protocol Last Admin: 10/10/16 11:48 Dose: Not Given Metoprolol Tartrate (Lopressor) 5 mg IVP Q6 [facility] Last Admin: 10/10/16 09:03 Dose: 5 mg Physical Exam - Head Exam Head Exam: ATRAUMATIC - Eye Exam Eye Exam: Normal appearance - ENT Exam ENT Exam: Mucous Membranes Dry - Respiratory Exam Respiratory Exam: NORMAL BREATHING PATTERN - Cardiovascular Exam Cardiovascular Exam: +S1, +S2 - GI/Abdominal Exam GI & Abdominal Exam: Normal Bowel Sounds - Neurological Exam Neurological exam: Oriented x3 - Psychiatric Exam Psychiatric exam: Normal Affect, Normal Mood - Skin Skin Exam: Warm Results - Vital Signs Recent Vital Signs: Last Vital Signs Temp 98.6 F 10/10/16 11:46 Pulse 76 10/10/16 14:00 Resp 14 10/10/16 14:00 BP 132/73 10/10/16 14:00 Pulse Ox 100 10/10/16 14:00 - Labs Result Diagrams: 10/10/16 06:30 10/10/16 06:30 Labs: Laboratory Results - last 24 hr 10/09/16 10/09/16 10/09/16 14:50 16:02 20:06 WBC 9.4 RBC 3.86 L Hgb 10.2 L D Hct 31.3 L MCV 81.2 D MCH 26.4 L MCHC 32.5 L RDW 22.4 H Plt Count 235 PT INR APTT Sodium 142 Potassium 3.7 Chloride 110 H Carbon Dioxide 23 Anion Gap 13 BUN 17 Creatinine 0.5 L Est GFR ( Amer) > 60 Est GFR (Non-Af Amer) > 60 POC Glucose (mg/dL) 55 L 302 H Random Glucose 71 L Calcium 7.7 L Total Bilirubin AST ALT Alkaline Phosphatase Total Protein Albumin Globulin Albumin/Globulin Ratio 10/09/16 10/10/16 10/10/16 23:55 06:30 06:57 WBC 8.2 RBC 3.95 L Hgb 10.6 L Hct 31.8 L MCV 80.5 MCH 26.8 L MCHC 33.3 RDW 22.8 H Plt Count 252 PT 9.6 INR 0.92 APTT 25.7 Sodium 136 Potassium 3.7 Chloride 105 Carbon Dioxide 24 Anion Gap 10 BUN 12 Creatinine 0.4 L Est GFR ( Amer) > 60 Est GFR (Non-Af Amer) > 60 POC Glucose (mg/dL) 137 H 173 H Random Glucose 146 H Calcium 7.9 L Total Bilirubin 0.4 AST 25 ALT 38 Alkaline Phosphatase 76 Total Protein 5.8 L Albumin 2.9 L Globulin 2.9 Albumin/Globulin Ratio 1.0 10/10/16 11:09 WBC RBC Hgb Hct MCV MCH MCHC RDW Plt Count PT INR APTT Sodium Potassium Chloride Carbon Dioxide Anion Gap BUN Creatinine Est GFR ( Amer) Est GFR (Non-Af Amer) POC Glucose (mg/dL) 148 H Random Glucose Calcium Total Bilirubin AST ALT Alkaline Phosphatase Total Protein Albumin Globulin Albumin/Globulin Ratio Assessment & Plan (1) Anemia Assessment and Plan: Acute GI bleeding chronic iron deficiency secondary to GI bleeding will repeat ferritin to evaluate iron stores GI f/u transfusion support PRN Thank you for this interesting consult. Status: Acute
--- NOTE | 2016-10-10 14:56 | CP.PCM.PN ---
<Pepito Hsu - Last Filed: 10/10/16 14:53> Subjective - Date & Time of Evaluation Date of Evaluation: 10/10/16 Time of Evaluation: 11:00 - Subjective Subjective: PGY4 GI Fellow Progress Note Patient seen and examined bedside this morning. He denies any complaints today except for wanting to eat more substantial food. Denies any abdominal pain, nausea, vomiting. Discussed with nursing staff who state he has not had any episodes of overt bleeding. 12 system ROS performed and negative except where stated. Objective - Vital Signs/Intake and Output Vital Signs (last 24 hours): Temp Pulse Resp BP Pulse Ox 98.6 F 76 14 132/73 100 10/10/16 11:46 10/10/16 14:00 10/10/16 14:00 10/10/16 14:00 10/10/16 14:00 Intake and Output: 10/10/16 10/10/16 06:59 18:59 Intake Total 250 410 Output Total 2650 1500 Balance -2400 -1090 - Medications Medications: Current Medications Bisacodyl (Dulcolax) 20 mg PO ONCE ONE Stop: 10/10/16 14:54 Enalapril Maleate (Vasotec) 10 mg PO DAILY [facility] Last Admin: 10/10/16 11:59 Dose: 10 mg Pantoprazole Sodium 40 mg/ (Sodium Chloride) 100 mls @ 20 mls/hr IV Q5H [facility] Last Admin: 10/10/16 13:57 Dose: 20 mls/hr Insulin Human Regular (Humulin R) 0 units SC ACHS [facility] PRN Reason: Protocol Last Admin: 10/10/16 11:48 Dose: Not Given Metoprolol Tartrate (Lopressor) 5 mg IVP Q6 [facility] Last Admin: 10/10/16 09:03 Dose: 5 mg Polyethylene Glycol/Electrolytes (Golytely) 4,000 ml PO ONCE ONE Stop: 10/10/16 14:54 - Labs Labs: 10/10/16 06:30 10/10/16 06:30 PT 9.6 SECONDS (9.6-11.2) 10/10/16 06:30 INR 0.92 (0.92-1.08) 10/10/16 06:30 APTT 25.7 SECONDS (23.3-32.5) 10/10/16 06:30 - Constitutional Appears: Non-toxic, No Acute Distress - Eye Exam Eye Exam: EOMI, PERRL - ENT Exam ENT Exam: Mucous Membranes Moist - Respiratory Exam Respiratory Exam: Clear to Ausculation Bilateral. absent: Rales, Rhonchi, Wheezes - Cardiovascular Exam Cardiovascular Exam: RRR, +S1, +S2 - GI/Abdominal Exam GI & Abdominal Exam: Soft, Normal Bowel Sounds. absent: Distended, Firm, Guarding, Rigid, Tenderness, Organomegaly - Extremities Exam Extremities Exam: Normal Inspection. absent: Pedal Edema - Neurological Exam Neurological Exam: Alert, Awake, Oriented x3 - Psychiatric Exam Psychiatric exam: Normal Affect, Normal Mood - Skin Skin Exam: Dry, Warm Assessment and Plan - Assessment and Plan (Free Text) Assessment: Octavio is a 76 year old male with PMHx significant for DMT2, HTN, HLD who was admitted to the ICU with hematochezia and acute blood loss anemia, Hb 5.9 (down from baseline 9). -Acute blood loss anemia -HTN -DMT2 Plan: -Pt is s/p resuscitation with 4u PRBCs, HGB stable -S/P EGD without significant findings -Plan for colonoscopy tomorrow; Dulcolax 20mg PO once and GoLytely to be given today for prep -Continue clear liquid diet -NPO past MN <Vikash Curtis - Last Filed: 10/10/16 15:39> Objective - Vital Signs/Intake and Output Vital Signs (last 24 hours): Temp Pulse Resp BP Pulse Ox 98.6 F 76 14 132/73 100 10/10/16 11:46 10/10/16 14:00 10/10/16 14:00 10/10/16 14:00 10/10/16 14:00 Intake and Output: 10/10/16 10/10/16 06:59 18:59 Intake Total 250 410 Output Total 2650 1500 Balance -2400 -1090 - Medications Medications: Current Medications Enalapril Maleate (Vasotec) 10 mg PO DAILY [facility] Last Admin: 10/10/16 11:59 Dose: 10 mg Pantoprazole Sodium 40 mg/ (Sodium Chloride) 100 mls @ 20 mls/hr IV Q5H [facility] Last Admin: 10/10/16 13:57 Dose: 20 mls/hr Insulin Human Regular (Humulin R) 0 units SC ACHS [facility] PRN Reason: Protocol Last Admin: 10/10/16 11:48 Dose: Not Given Metoprolol Tartrate (Lopressor) 5 mg IVP Q6 [facility] Last Admin: 10/10/16 09:03 Dose: 5 mg - Labs Labs: 10/10/16 06:30 10/10/16 06:30 PT 9.6 SECONDS (9.6-11.2) 10/10/16 06:30 INR 0.92 (0.92-1.08) 10/10/16 06:30 APTT 25.7 SECONDS (23.3-32.5) 10/10/16 06:30 Attending/Attestation - Attestation I have personally seen and examined this patient.: Yes I have fully participated in the care of the patient.: Yes I have reviewed all pertinent clinical information, including history, physical exam and plan: Yes Notes (Text): Patient seen and examined with GI fellow. Agree with his note as documented above with the following additions/exceptions. This is a 76 year old male with h/o DM, HTN, HL who is admitted to ICU with acute blood loss anemia due to hematochezia, 4g hemoglobin drop. He is s/p EGD yesterday showing mild gastritis/hiatal hernia, no bleeding. He has had no further bleeding episodes and his H/H are stable. Will prep for colonoscopy tomorrow. 10/10/16 15:38
[2016-10-10] MEDS ORDERED: Peg-Electrolyte Oral Soln 4L (Golytely) PO ONE (15:00)
--- NOTE | 2016-10-10 15:20 | CP.CCUPN ---
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 Denies any abdominal discomfort , nausea or new changes in BMs. Afebrile, SBPs 130s to 160s, HR 80, RR 14, SPO2 100% NC, 24H I/Os neg 1.0 L. ROS: as above, no other pertinent negs or positives on 10 system review. PMFSH: all nursing and historical notes reviewed, no new pertinent data relevant to current problems. No other distress noted: EXAM- HEENT: no icterus, pupils equal and reactive NECK: no visible JVD, supple, carotids equal upstroke bilat/no bruits CHEST: decreased BS bases, no wheezes audible HEART: regular, distant, S1S2, no murmur audible, no rubs. ABD: soft, no increased distention, no focal tenderness, no HSM. BS hypoactive , EXT: no increase in leg edema, no peripheral/ digital cyanosis, no calf tenderness or palpable cords, distal pulses intact and symmetrical NEURO: no gross focal motor deficits SKIN: no rashes LABS: overnight bloodwork reviewed and listed below- WBC= 8.2 HGB= 10.6 PLTs= 252K INR= 0.92, PTT normal. Na= 136 K= 3.7 HCO3= 24 BUN/Cr= 12/0.4 BS= 146 MAJOR PROBLEMS: 1. Gastritis without active bleeding 2. Severe acute Anemia 2 GI Bleed 3. Mild Azotemia / Dehydration PLAN: 1. Serial CBCs, now daily. 2. Will discontinue PPI drip. 3. Increase diet, but GI plans for colonoscopy in AM. 4. Maintain normoglycemia 5. Stable for Stepdown bed for further observation and mgmt.
[2016-10-10] MEDS ORDERED: Digoxin 500 mcg/2ml (0.5 mg/2ml) Inj ONE (22:12)
[2016-10-11] MEDS: Pantoprazole 40 MG in Sodium Chloride 0.9% 100 ML IV SCH ×4 (05:05→21:59)
[2016-10-11] MEDS: Metoprolol 1 mg/ml Inj IVP SCH ×4 (05:15→21:57)
[2016-10-11 05:48] LABS: BASO # 0.1 K/uL (0.0-0.2); EOS # 0.8 K/uL (0.0-0.7); EOS % 9.5 % (0.0-4.0); HEMATOCRIT 32.4 % (35.0-51.0); LYMPH % 11.9 % (20.0-40.0); MEAN CELL VOLUME 81.8 fl (80.0-94.0); MEAN CORPUSCULAR HEMOGLOBIN 26.7 pg (27.0-31.0); MEAN CORPUSCULAR HGB CONC 32.7 g/dL (33.0-37.0); MEAN PLATELET VOLUME 8.1 fl (7.2-11.7); MONO # 0.7 K/uL (0.0-0.8); MONO % 8.5 % (0.0-10.0); NEUT # 5.7 K/uL (1.8-7.0); NEUT % 69.1 % (50.0-75.0); RED CELL DISTRIBUTION WIDTH 23.4 % (11.5-14.5); WHITE BLOOD COUNT 8.3 K/uL (4.8-10.8)
[2016-10-11 05:56] LABS: ALKALINE PHOSPHATASE 96 U/L (38-126); ALT/SGPT 38 U/L (21-72); AST/SGOT 41 U/L (17-59); BILIRUBIN,TOTAL 0.4 mg/dl (0.2-1.3); BLOOD UREA NITROGEN 7 mg/dl (9-20); CARBON DIOXIDE 28 mmol/L (22-30); CHLORIDE 101 mmol/L (98-107); GFR AFRICAN-AMERICAN > 60; GLUCOSE,RANDOM 188 mg/dL (75-110); POTASSIUM 4.1 MMOL/L (3.6-5.0); SODIUM 141 mmol/l (132-148); TOTAL PROTEIN 6.1 G/DL (6.3-8.2)
[2016-10-11] MEDS: Insulin Regular 100 units/ml SC SCH ×5 (06:24→21:55)
--- NOTE | 2016-10-11 09:42 | PN ---
DATE: 10/11/2016 The patient seen and examined. Interim events noted. and construction controller intervention noted and a ppreciated. . The patient remains in intensive care unit. The patient feels okay. No signifi cant complaint. No chest pain, no shortness of breath, although patient is not a reliable historian. PHYSICAL EXAMINATION: GENERAL: The patient is in no acute distress. VITAL SIGNS: Stable. HEART: S1, S2 normal, regular. LUNGS: Good bilateral air exchange. ABDOMEN: Soft, nontender. No organomegaly, no fluid. Bowel sounds are plus. EXTREMITIES: No edema, no calf swelling, no tenderness, no acute ischemia. CENTRAL NERVOUS SYSTEM: Essentially unchanged. DIAGNOSTIC DATA: Available reviewed. Telemetry monitoring does not reveal significant arrhythmias. Hemoglobin today is 10.6 and stable. Overall, patient's general medical condition is stable and improving. The patient is for possible co lonoscopy today. PLAN: As ordered. Geraldo Shelton MD cc: [id number] TT: 10/11/2016 09:40:55 Confirmation # [id number] Dictation # [id number] en
[2016-10-11] MEDS ORDERED: Enalaprilat 2.5 MG/2 ML IVP ONE (09:44)
[2016-10-11] MEDS ORDERED: Sodium Chloride 0.9% 250 ML IV ONE (13:03)
[2016-10-11] MEDS ORDERED: Propofol 10 mg/ml Inj (20 ML) ONE (13:13)
--- NOTE | 2016-10-12 02:35 | CP.PCM.PN ---
Subjective - Date & Time of Evaluation Date of Evaluation: 10/11/16 Time of Evaluation: 18:15 - Subjective Subjective: No complaints Objective - Vital Signs/Intake and Output Vital Signs (last 24 hours): Temp Pulse Resp BP Pulse Ox 98.1 F 73 14 119/71 98 10/12/16 00:00 10/12/16 00:00 10/12/16 00:00 10/12/16 00:00 10/12/16 00:00 Intake and Output: 10/11/16 10/12/16 18:59 06:59 Intake Total 1000 350 Output Total 600 300 Balance 400 50 - Medications Medications: Current Medications Enalapril Maleate (Vasotec) 10 mg PO DAILY [facility] Last Admin: 10/11/16 16:18 Dose: 10 mg Pantoprazole Sodium 40 mg/ (Sodium Chloride) 100 mls @ 20 mls/hr IV Q5H [facility] Last Admin: 10/11/16 21:59 Dose: 20 mls/hr Insulin Human Regular (Humulin R) 0 units SC ACHS [facility] PRN Reason: Protocol Last Admin: 10/11/16 21:55 Dose: Not Given Metoprolol Tartrate (Lopressor) 5 mg IVP Q6 [facility] Last Admin: 10/11/16 21:57 Dose: Not Given - Labs Labs: 10/11/16 04:30 10/11/16 04:30 PT 9.8 SECONDS (9.6-11.2) 10/11/16 04:30 INR 0.94 (0.92-1.08) 10/11/16 04:30 APTT 25.7 SECONDS (23.3-32.5) 10/10/16 06:30 - Head Exam Head Exam: ATRAUMATIC - Eye Exam Eye Exam: Normal appearance - ENT Exam ENT Exam: Mucous Membranes Dry - Respiratory Exam Respiratory Exam: NORMAL BREATHING PATTERN - Cardiovascular Exam Cardiovascular Exam: +S1, +S2 - GI/Abdominal Exam GI & Abdominal Exam: Normal Bowel Sounds - Extremities Exam Extremities Exam: Normal Inspection Assessment and Plan (1) Anemia Assessment & Plan: GI bleed appears to be resolved iron deficiency resolved; normal iron stores s/p transfusion support Status: Acute
[2016-10-12] MEDS: Pantoprazole 40 MG in Sodium Chloride 0.9% 100 ML IV SCH ×2 (03:09→05:49)
[2016-10-12] MEDS: Metoprolol 1 mg/ml Inj IVP SCH (03:12)
[2016-10-12 05:52] VITALS: O2SAT 100
[2016-10-12 05:57] LABS: MEAN CORPUSCULAR HEMOGLOBIN 27.1 pg (27.0-31.0)
[2016-10-12 06:05] LABS: ALB/GLOB RATIO 0.9 (1.0-2.1); ALKALINE PHOSPHATASE 87 U/L (38-126); ALT/SGPT 28 U/L (21-72); AST/SGOT 21 U/L (17-59); BILIRUBIN,TOTAL 0.4 mg/dl (0.2-1.3); BLOOD UREA NITROGEN 11 mg/dl (9-20); CALCIUM 7.8 mg/dL (8.4-10.2); CARBON DIOXIDE 25 mmol/L (22-30); CHLORIDE 103 mmol/L (98-107); GFR AFRICAN-AMERICAN > 60; GLUCOSE,RANDOM 153 mg/dL (75-110); POTASSIUM 3.7 MMOL/L (3.6-5.0); SODIUM 138 mmol/l (132-148); TOTAL PROTEIN 5.6 G/DL (6.3-8.2)
[2016-10-12 06:38] LABS: HEMATOCRIT 29.4 % (35.0-51.0); MEAN CELL VOLUME 81.3 fl (80.0-94.0); MEAN CORPUSCULAR HGB CONC 33.3 g/dL (33.0-37.0); RED CELL DISTRIBUTION WIDTH 24.1 % (11.5-14.5); WHITE BLOOD COUNT 7.8 K/uL (4.8-10.8)
[2016-10-12] MEDS: Insulin Regular 100 units/ml SC SCH ×2 (07:18→12:14)
--- NOTE | 2016-10-12 08:09 | CP.PCM.PN ---
<ShannonsaraPepito neil - Last Filed: 10/12/16 09:01> Subjective - Date & Time of Evaluation Date of Evaluation: 10/12/16 Time of Evaluation: 08:07 - Subjective Subjective: PGY4 GI Fellow Progress Note Patient seen and examined bedside this morning. The patient denies any complaints at this time. States he is feeling much better and has not had any further episodes of hematochezia/melena. No dizziness, lightheadedness, SOB, abdominal pain. 12 system ROS performed and negative except where stated. Objective - Vital Signs/Intake and Output Vital Signs (last 24 hours): Temp Pulse Resp BP Pulse Ox 98 F 74 15 148/84 100 10/12/16 04:00 10/12/16 05:51 10/12/16 05:51 10/12/16 05:51 10/12/16 05:51 Intake and Output: 10/12/16 10/12/16 06:59 18:59 Intake Total 590 Output Total 400 Balance 190 - Medications Medications: Current Medications Enalapril Maleate (Vasotec) 10 mg PO DAILY [facility] Last Admin: 10/11/16 16:18 Dose: 10 mg Pantoprazole Sodium 40 mg/ (Sodium Chloride) 100 mls @ 20 mls/hr IV Q5H [facility] Last Admin: 10/12/16 05:49 Dose: 20 mls/hr Insulin Human Regular (Humulin R) 0 units SC ACHS [facility] PRN Reason: Protocol Last Admin: 10/12/16 07:18 Dose: 2 units Metoprolol Tartrate (Lopressor) 5 mg IVP Q6 [facility] Last Admin: 10/12/16 03:12 Dose: Not Given - Labs Labs: 10/12/16 04:30 10/12/16 04:30 PT 9.8 SECONDS (9.6-11.2) 10/11/16 04:30 INR 0.94 (0.92-1.08) 10/11/16 04:30 APTT 25.7 SECONDS (23.3-32.5) 10/10/16 06:30 - Constitutional Appears: Non-toxic, No Acute Distress - Eye Exam Eye Exam: EOMI, PERRL - ENT Exam ENT Exam: Mucous Membranes Moist - Respiratory Exam Respiratory Exam: Clear to Ausculation Bilateral. absent: Rales, Rhonchi, Wheezes - Cardiovascular Exam Cardiovascular Exam: RRR, +S1, +S2 - GI/Abdominal Exam GI & Abdominal Exam: Soft, Normal Bowel Sounds. absent: Distended, Firm, Guarding, Rigid, Tenderness, Organomegaly - Extremities Exam Extremities Exam: Normal Inspection. absent: Pedal Edema Additional comments: abnormal fingernail growth on left 2nd digit - Neurological Exam Neurological Exam: Alert, Awake, Oriented x3 - Psychiatric Exam Psychiatric exam: Normal Affect, Normal Mood - Skin Skin Exam: Dry, Warm Assessment and Plan - Assessment and Plan (Free Text) Assessment: Patient is a 76 year old male with PMHx significant for DMT2, HTN, HLD who was admitted to the ICU with hematochezia and acute blood loss anemia, Hb 5.9 (down from baseline 9). -Acute blood loss anemia, resolved -HTN -DMT2 Plan: -S/P EGD and Colonoscopy -Diverticulosis and hemorrhoids noted on colonoscopy -D/C protonix gtt -OK to D/C from GI standpoint as no active bleeding identified and HGB stable <Seth Guthrie MD - Last Filed: 10/12/16 14:14> Objective - Vital Signs/Intake and Output Vital Signs (last 24 hours): Temp Pulse Resp BP Pulse Ox 98.4 F 97 H 25 H 154/86 H 100 10/12/16 13:22 10/12/16 13:22 10/12/16 13:22 10/12/16 13:22 10/12/16 13:22 Intake and Output: 10/12/16 10/12/16 06:59 18:59 Intake Total 590 520 Output Total 400 700 Balance 190 -180 - Medications Medications: Current Medications Enalapril Maleate (Vasotec) 10 mg PO DAILY [facility] Last Admin: 10/12/16 10:41 Dose: 10 mg Glipizide (Glucotrol Xl) 10 mg PO BID [facility] Insulin Human Regular (Humulin R) 0 units SC ACHS [facility] PRN Reason: Protocol Last Admin: 10/12/16 12:14 Dose: 10 units Pantoprazole Sodium (Protonix Ec Tab) 40 mg PO DAILY [facility] Last Admin: 10/12/16 12:15 Dose: 40 mg Sitagliptin Phosphate (Januvia) 100 mg PO DAILY [facility] Last Admin: 10/12/16 12:14 Dose: 100 mg - Labs Labs: 10/12/16 04:30 10/12/16 04:30 PT 9.8 SECONDS (9.6-11.2) 10/11/16 04:30 INR 0.94 (0.92-1.08) 10/11/16 04:30 APTT 25.7 SECONDS (23.3-32.5) 10/10/16 06:30 Attending/Attestation - Attestation I have personally seen and examined this patient.: Yes I have fully participated in the care of the patient.: Yes I have reviewed all pertinent clinical information, including history, physical exam and plan: Yes Notes (Text): 10/12/16 14:13 Patient seen and examined at bedside with GI fellow. 76 year old male with PMHx significant for DMT2, HTN, HLD who was admitted to the ICU with hematochezia and acute blood loss anemia, Hb 5.9 (down from baseline 9). Plan: -S/P EGD and Colonoscopy -Diverticulosis and hemorrhoids noted on colonoscopy -D/C protonix gtt -OK to D/C from GI standpoint as no active bleeding identified and HGB stable
--- NOTE | 2016-10-12 08:15 | PN ---
DATE: 10/11/2016 The patient in ICU, bed 421. TIME SPENT: 35 minutes. The patient is seen and evaluated at the bedside. Past medical, surgical, social history and events since admission reviewed. Status post transfusion of 4 units of packed red blood cells. EGD showed gastritis without active bleeding. This morning, alert, awake, follows commands appropriate, n.p.o. for the colonoscopy. Denies chest pain, palpitation. No abdominal pain or diarrhea. No melena. PHYSICAL EXAMINATION: VITAL SIGNS: Temperature 97.7, heart rate 71, regular, respiratory rate 20 thoracoabdominal, blood pressure 157/79. Intake/output, 930/2800, negative 1870. Weight 150 pounds. HEENT: Pupils are reactive. Conjunctivae pink. Sclerae white. NECK: Supple. CHEST: Bilateral breath sounds clear to auscultation. HEART: Rhythm regular. S1, S2 distant. No audible murmur or rub. ABDOMEN: Bowel sounds present, soft. No focal tenderness. EXTREMITIES: No pedal edema. No palpable cord. Peripheral pulses intact, symmetric. NEUROLOGIC: Nonfocal. SKIN: Without rash. LABORATORY DATA: WBC 8.3, hemoglobin 10.6, hematocrit 32.4, platelet count 261 , neutrophils 69, lymphocytes 11.9, monocytes 8.5. PT 9.8, INR 0.94. SMA-7: Sodium 141, potassium 4.1, chloride 101, CO2 28, blood urea nitrogen 7, creatinine 0.5, glucose 211, random glucose 188, calcium 8. Ferritin 232. Total bilirubin 0.4, AST 41, ALT 38, alkaline phosphatase 96, total protein 6.1 , albumin 3. Colonoscopy: Multiple small and large-mouth diverticula were found in the anterior colon, no evidence of diverticular bleeding, nonbleeding external and internal hemorrhoids, one 3 mm nodule in the transverse colon, biopsy taken, estimated blood loss none. IMPRESSION: Gastrointestinal bleeding, acute gastritis, anemia secondary to acute blood loss, status post transfusion of 4 units of packed red blood cells, repeat hemoglobin 10.6, diverticulosis without gastrointestinal bleeding, nodule in the transverse colon status post biopsy, awaiting pathology report, history of hypertension. Continue enalapril 10 mg p.o., metoprolol 5 mg IV push q. 6. Discontinue Protonix drip. Add Protonix 40 p.o. daily, 1800-calorie diabetic diet. Continue Amaryl 4 mg p.o. twice daily, atorvastatin 10 mg daily, Januvia 100 mg p.o. daily, 2.5 mg p.o. daily. The patient may be transferred to regular floor. Jimmy Hamlin MD cc: [id number] TT: 10/11/2016 15:59:05 Confirmation # [id number] Dictation # [id number] en 10/12/2016 07:12:36 [place]
[2016-10-12] MEDS ORDERED: Pantoprazole 40 mg EC Tab PO SCH (11:00)
--- NOTE | 2016-10-12 11:39 | PN ---
DATE: 10/12/2016 LOCATION: The patient in ICU, bed 421. TIME SPENT: 25 minutes. SUBJECTIVE: The patient is seen and evaluated at the bedside. Events since admission reviewed. Past medical, surgical, and social history remains unchanged. Admitted with upper gastrointestinal bleed ing. Status post transfusion of 4 units of packed red blood cells. EGD showed gastritis without act tj bleeding. Colonoscopy shows diverticulosis. No active bleeding noted. Uneventful overnight. T his morning, alert, awake, follows commands appropriate. Tolerating p.o. feeds. PHYSICAL EXAMINATION: VITAL SIGNS: Temperature 97.9, heart rate 72 and regular, blood pressure 140/74, mean arterial press ure 96, respiratory rate 12-15 thoracoabdominal, saturation 100% on room air. Intake 1590, output 10 00, positive 590. Weight 150 pounds. HEENT: Pupils are reactive. Conjunctivae pale. Sclerae white. Trachea central. CHEST: Bilateral breath sounds, expiration prolonged. HEART: Rhythm regular. S1, S2 normal intensity. No S3, S4 gallop. No audible murmur or rub. ABDOMEN: Bowel sounds present, soft. No focal tenderness. EXTREMITIES: Without edema. Peripheral pulses intact, symmetric bilaterally. NEUROLOGIC: Nonfocal. SKIN: Without rash. LABORATORY DATA: WBC 7.8, hemoglobin 9.8, hematocrit 29.4, platelet count 255. PT 9.8, INR 0.94. S MA-7: Sodium 138, potassium 3.7, chloride 103, CO2 of 25, blood urea nitrogen 11, creatinine 0.6, r andom glucose 164, calcium 7.8, total bilirubin 0.4, AST 21, ALT 28, alkaline phosphatase 87, total protein 5.6, albumin 2.7. CURRENT MEDICATIONS: Enalapril 10 mg p.o. daily, Accu-Chek with regular insulin coverage, Lopressor 5 mg IV q. 6 hours. IMPRESSION: 1. Anemia secondary to acute blood loss. Status post EGD acute gastritis. No active bleeding noted . Status post transfusion of 4 units of packed red blood cells. Current hemoglobin 9.8, hematocrit 29.4. Continue on Protonix 40 mg p.o. daily. 2. Hypertension, controlled on enalapril 10 mg daily. 3. Diverticulosis without active bleeding. 4. Diabetes mellitus type 2. An 1800 calorie diabetic diet. Optimize medications for diabetes as p er PMD. The patient can be transferred to med/surgery floor. Jimmy Hamlin MD cc: [id number] TT: 10/12/2016 11:38:22 Confirmation # [id number] Dictation # [id number] jd
[2016-10-12 13:24] VITALS: BP 154/86; PULSE 97; RESP 25; TEMP 98.4
--- NOTE | 2016-10-12 13:29 | CP.PCM.PN ---
Subjective - Date & Time of Evaluation Date of Evaluation: 10/12/16 Objective - Vital Signs/Intake and Output Vital Signs (last 24 hours): Temp Pulse Resp BP Pulse Ox 97.9 F 85 26 H 141/75 100 10/12/16 08:00 10/12/16 10:00 10/12/16 10:00 10/12/16 10:00 10/12/16 10:00 Intake and Output: 10/12/16 10/12/16 06:59 18:59 Intake Total 590 520 Output Total 400 700 Balance 190 -180 - Medications Medications: Current Medications Enalapril Maleate (Vasotec) 10 mg PO DAILY [facility] Last Admin: 10/12/16 10:41 Dose: 10 mg Glipizide (Glucotrol Xl) 10 mg PO BID [facility] Insulin Human Regular (Humulin R) 0 units SC ACHS [facility] PRN Reason: Protocol Last Admin: 10/12/16 12:14 Dose: 10 units Pantoprazole Sodium (Protonix Ec Tab) 40 mg PO DAILY [facility] Last Admin: 10/12/16 12:15 Dose: 40 mg Sitagliptin Phosphate (Januvia) 100 mg PO DAILY [facility] Last Admin: 10/12/16 12:14 Dose: 100 mg - Labs Labs: 10/12/16 04:30 10/12/16 04:30 PT 9.8 SECONDS (9.6-11.2) 10/11/16 04:30 INR 0.94 (0.92-1.08) 10/11/16 04:30 APTT 25.7 SECONDS (23.3-32.5) 10/10/16 06:30 Assessment and Plan (1) Anemia Status: Acute
--- NOTE | 2016-10-12 14:11 | CP.PCM.DIS ---
Provider - Provider Date of Admission: 10/08/16 23:31 Attending physician: Geraldo Shelton MD Primary care physician: Ronak TBD Consults: GI, HEME/ONC Time Spent in preparation of Discharge (in minutes): 30 Hospital Course - Lab Results Lab Results: Micro Results 10/09/16 13:00 Nose MRSA Culture (Admit) - Final MRSA NOT DETECTED Most Recent Lab Values WBC 7.8 K/uL (4.8-10.8) 10/12/16 04:30 RBC 3.61 Mil/uL (4.40-5.90) L 10/12/16 04:30 Hgb 9.8 g/dL (12.0-18.0) L 10/12/16 04:30 Hct 29.4 % (35.0-51.0) L 10/12/16 04:30 MCV 81.3 fl (80.0-94.0) 10/12/16 04:30 MCH 27.1 pg (27.0-31.0) 10/12/16 04:30 MCHC 33.3 g/dL (33.0-37.0) 10/12/16 04:30 RDW 24.1 % (11.5-14.5) H 10/12/16 04:30 Plt Count 255 K/uL (130-400) 10/12/16 04:30 MPV 8.1 fl (7.2-11.7) 10/11/16 04:30 Neut % (Auto) 69.1 % (50.0-75.0) 10/11/16 04:30 Lymph % (Auto) 11.9 % (20.0-40.0) L 10/11/16 04:30 [place] % (Auto) 8.5 % (0.0-10.0) 10/11/16 04:30 Eos % (Auto) 9.5 % (0.0-4.0) H 10/11/16 04:30 Baso % (Auto) 1.0 % (0.0-2.0) 10/11/16 04:30 Neut # 5.7 K/uL (1.8-7.0) 10/11/16 04:30 Lymph # 1.0 K/uL (1.0-4.3) 10/11/16 04:30 [place] # 0.7 K/uL (0.0-0.8) 10/11/16 04:30 Eos # 0.8 K/uL (0.0-0.7) H 10/11/16 04:30 Baso # 0.1 K/uL (0.0-0.2) 10/11/16 04:30 PT 9.8 SECONDS (9.6-11.2) 10/11/16 04:30 INR 0.94 (0.92-1.08) 10/11/16 04:30 APTT 25.7 SECONDS (23.3-32.5) 10/10/16 06:30 Sodium 138 mmol/l (132-148) 10/12/16 04:30 Potassium 3.7 MMOL/L (3.6-5.0) 10/12/16 04:30 Chloride 103 mmol/L (98-107) 10/12/16 04:30 Carbon Dioxide 25 mmol/L (22-30) 10/12/16 04:30 Anion Gap 13 (10-20) 10/12/16 04:30 BUN 11 mg/dl (9-20) 10/12/16 04:30 Creatinine 0.6 mg/dL (0.8-1.5) L 10/12/16 04:30 Est GFR ( Amer) > 60 10/12/16 04:30 Est GFR (Non-Af Amer) > 60 10/12/16 04:30 POC Glucose (mg/dL) 438 mg/dL (65-110) H* 10/12/16 11:18 Random Glucose 153 mg/dL (75-110) H 10/12/16 04:30 Calcium 7.8 mg/dL (8.4-10.2) L 10/12/16 04:30 Ferritin 232.0 ng/mL 10/11/16 04:30 Total Bilirubin 0.4 mg/dl (0.2-1.3) 10/12/16 04:30 AST 21 U/L (17-59) 10/12/16 04:30 ALT 28 U/L (21-72) 10/12/16 04:30 Alkaline Phosphatase 87 U/L (38-126) 10/12/16 04:30 Troponin I < 0.0120 ng/mL (0.00-0.120) 10/08/16 00:08 Total Protein 5.6 G/DL (6.3-8.2) L 10/12/16 04:30 Albumin 2.7 g/dL (3.5-5.0) L 10/12/16 04:30 Globulin 2.9 gm/dL (2.2-3.9) 10/12/16 04:30 Albumin/Globulin Ratio 0.9 (1.0-2.1) L 10/12/16 04:30 Blood Type A POSITIVE 10/08/16 23:27 Antibody Screen Negative 10/08/16 23:27 Crossmatch See Detail 10/08/16 23:27 BBK History Checked Patient has bt 10/08/16 23:27 - Hospital Course Hospital Course: Pt was admitted for GI bleed, was seen by GI and heme/onc GI did a colonoscopy and EGD, colonoscopy showed diverticulosis and hemorrhoids. Pt is no longer bleeding, stable to start rehab Discharge Exam - Head Exam Head Exam: ATRAUMATIC, NORMOCEPHALIC - Eye Exam Eye Exam: Normal appearance - ENT Exam ENT Exam: Mucous Membranes Moist - Respiratory Exam Respiratory Exam: NORMAL BREATHING PATTERN - Cardiovascular Exam Cardiovascular Exam: REGULAR RHYTHM, +S1, +S2 - GI/Abdominal Exam GI & Abdominal Exam: Normal Bowel Sounds, Soft. absent: Tenderness - Neurological Exam Neurological exam: Alert, CN II-XII Intact, Oriented x3 Discharge Plan - Follow Up Plan Condition: STABLE Disposition: REHAB FACILITY/REHAB UNIT Referrals: Provider MATTHEWD, [Primary Care Provider] -
[2016-10-12] MEDS ORDERED: GlipiZIDE 10 mg SR Tab PO SCH (17:00)
--- NOTE | 2016-10-14 10:01 | PQF GENQUE ---
This form is a permanent part of the medical record DR. SACHIN APONTE: PATHOLOGY REPORT FINAL DIAGNOSIS POSITIVE FOR HELICOBACTER PYLORI. COULD YOU PLEASE CLARIFY. Clarification of your documentation is requested to better reflect the severity of illness and intensity of treatment of your patient. Indicators present [] Specify: [] [] Specify: [] [] Specify: [] [] Specify: [] Location in the medical record that reflects the above clinical findings: [] Treatment Provided: [] PHYSICIAN'S RESPONSE Based on your medical judgment of the clinical indicators outlined above please clarify the following: [] Practitioner response [] If unable to determine, please check the box, sign and date. Present On Admission (POA) Indicator: [] Present at the time of admission [] Not present at the time of admission [] Clinically Undetermined In responding to this query, please exercise your independent professional judgment. The fact that a question is asked does not imply that any particular answer is desired or expected. Thank you for your clarification on this documentation. If you have any questions please call:[ ] * Thank you, * NATTY ALVARADO [phone] manager of revenue [place]
== END 2016-10-12 16:00 | DRG 378 ==
LOC: H.ER 23:13 → H.ERHOLD 23:31 → H.ICU/CCU 10-09 02:20
PROVIDERS: ADMIT Internal Medicine; ATTEND Internal Medicine
PROC: 0DB68ZX Excision of Stomach, Via Natural or Artificial Opening Endoscopic, Diagnostic (ICD-10-PCS; 2016-10-09)
PROC: 30233N1 Transfusion of Nonautologous Red Blood Cells into Peripheral Vein, Percutaneous Approach (ICD-10-PCS; 2016-10-09)
PROC: 3E0234Z Introduction of Serum, Toxoid and Vaccine into Muscle, Percutaneous Approach (ICD-10-PCS; 2016-10-09)
PROC: 0DB98ZX Excision of Duodenum, Via Natural or Artificial Opening Endoscopic, Diagnostic (ICD-10-PCS; principal; 2016-10-09 13:00)
PROC: 0DBL8ZX Excision of Transverse Colon, Via Natural or Artificial Opening Endoscopic, Diagnostic (ICD-10-PCS; 2016-10-11)
PROC: 0DBK8ZX Excision of Ascending Colon, Via Natural or Artificial Opening Endoscopic, Diagnostic (ICD-10-PCS; 2016-10-11)
PROC: 0DBN8ZX Excision of Sigmoid Colon, Via Natural or Artificial Opening Endoscopic, Diagnostic (ICD-10-PCS; 2016-10-11)
PROC: 0DBM8ZX Excision of Descending Colon, Via Natural or Artificial Opening Endoscopic, Diagnostic (ICD-10-PCS; 2016-10-11)
PROC: 0DBH8ZX Excision of Cecum, Via Natural or Artificial Opening Endoscopic, Diagnostic (ICD-10-PCS; 2016-10-11)
DX: K92.2 Gastrointestinal hemorrhage, unspecified (principal); D62 Acute posthemorrhagic anemia; E11.65 Type 2 diabetes mellitus with hyperglycemia; K29.00 Acute gastritis without bleeding; I10 Essential (primary) hypertension; E78.00 Pure hypercholesterolemia, unspecified; E78.5 Hyperlipidemia, unspecified; F17.210 Nicotine dependence, cigarettes, uncomplicated; E61.1 Iron deficiency; K44.9 Diaphragmatic hernia without obstruction or gangrene; K64.8 Other hemorrhoids; K64.4 Residual hemorrhoidal skin tags; K57.90 Diverticulosis of intestine, part unspecified, without perforation or abscess without bleeding; Z79.4 Long term (current) use of insulin; Z79.84 Long term (current) use of oral hypoglycemic drugs; Z23 Encounter for immunization

== ENCOUNTER 2016-10-12 14:31 | Inpatient (IN) | payer OTHER, MEDICAID ==
[2016-10-12 16:05] VITALS: BMI 17.3
[2016-10-12] MEDS ORDERED: Glucagon Recombinant 1 mg Inj IM PRN (16:12)
[2016-10-12] MEDS ORDERED: Dextrose 50% SYRINGE Inj (50 ml) IV PRN (16:12)
[2016-10-12] MEDS: Insulin Regular 100 units/ml SC SCH ×2 (17:06→21:36)
[2016-10-12] MEDS: GlipiZIDE 10 mg SR Tab PO SCH (17:21)
[2016-10-13] MEDS: Insulin Regular 100 units/ml SC SCH ×4 (06:47→21:41)
[2016-10-13] MEDS: Pantoprazole 40 mg EC Tab PO SCH (09:02)
[2016-10-13] MEDS: GlipiZIDE 10 mg SR Tab PO SCH ×2 (09:02→16:34)
--- NOTE | 2016-10-13 09:55 | HP ---
CHIEF COMPLAINT: Transferred from medical ICU after treatment of GI bleed and post-hemorrhagic anemi a. HISTORY OF PRESENT ILLNESS: This is a 76-year-old male who was in transitional care unit being treat ed and was found to have large amount of gastrointestinal bleeding and then stat hemoglobin showed he moglobin level down to 6, so the patient was sent to the Emergency Room where, after evaluation, jac ent was admitted to the intensive care unit for GI bleed. The patient had blood transfusion done. T he patient also had upper and lower endoscopy done which showed large diverticulum, but active bleedi ng stopped, patient stabilized and patient was transferred back to transitional care unit for complet ion of treatment. REVIEW OF SYSTEMS: At this time is negative for headache, dizziness, syncope, loss of consciousness, chest pain, shortness of breath, nausea, vomiting, diarrhea, constipation, any bloody stool. Review of systems of all other organ systems is unremarkable. PAST MEDICAL HISTORY: Significant for diabetes, hypertension, elevated cholesterol, diverticulosis. PAST SURGICAL HISTORY: Unremarkable. PERSONAL HISTORY: The patient is currently a nonsmoker, nondrinker, no substance abuse. MEDICATIONS: The patient is on multiple medications which are as per reconciliation sheet which was reviewed and ordered. ALLERGIES: The patient is not allergic to any medication. FAMILY HISTORY: Noncontributory. PHYSICAL EXAMINATION: GENERAL: Well-built, well-nourished 76-year-old male in no acute distress. VITAL SIGNS: Temperature afebrile, pulse 78, respirations 18, blood pressure 130/70. HEENT: Pupils reacting to light. No JVD, no thyromegaly, no lymphadenopathy, no nystagmus. Normoce phalic, atraumatic skull. HEART: S1, S2 normal, regular. No significant murmur, gallop or rub is heard. LUNGS: Show good bilateral air exchange. No rales or rhonchi. ABDOMEN: Soft, nontender, no organomegaly, no fluid. Bowel sounds are plus. No guarding, no rigidi ty, no rebound. EXTREMITIES: No edema, no calf swelling, no tenderness, no acute ischemia. CENTRAL NERVOUS SYSTEM: Essentially unchanged from patient's usual exam and there is no sign of any acute gross focal motor or sensory neurological deficit. DIAGNOSTIC DATA: Available diagnostic data reviewed. Accu-Cheks are running high. Overall, patient's admitting impression: Gastrointestinal bleed, post-hemorrhagic anemia, diabetes, hypertension, elevated cholesterol. PLAN: As ordered. Case and plan discussed with patient. Geraldo Shelton MD cc: [id number] TT: 10/13/2016 09:55:12 tn
[2016-10-14] MEDS: Insulin Regular 100 units/ml SC SCH ×4 (06:44→22:37)
--- NOTE | 2016-10-14 08:53 | PN ---
DATE: 10/14/2016 The patient seen and examined. Interim events noted. Consults noted, appreciated. The patient lisa ins in transitional care unit. The patient feels okay. No specific complaint. No chest pain, no sh ortness of breath. PHYSICAL EXAMINATION: GENERAL: The patient is in no acute distress. VITAL SIGNS: Stable. HEART: S1, S2 normal, regular. LUNGS: Good bilateral air entry. ABDOMEN: Soft, nontender. EXTREMITIES: No calf swelling, no tenderness, no acute ischemia. CENTRAL NERVOUS SYSTEM: Essentially unchanged. DIAGNOSTIC DATA: Available reviewed. Overall, patient's general condition is stable and improving. PLAN: As ordered. Geraldo Shelton MD cc: [id number] TT: 10/14/2016 08:52:43 Confirmation # [id number] Dictation # [id number] en
[2016-10-14] MEDS: GlipiZIDE 10 mg SR Tab PO SCH ×2 (09:54→17:18)
[2016-10-14] MEDS: Pantoprazole 40 mg EC Tab PO SCH (09:54)
[2016-10-15] MEDS: Insulin Regular 100 units/ml SC SCH ×4 (06:42→22:11)
[2016-10-15] MEDS: GlipiZIDE 10 mg SR Tab PO SCH ×2 (08:34→17:41)
[2016-10-15] MEDS: Pantoprazole 40 mg EC Tab PO SCH (08:34)
--- NOTE | 2016-10-15 08:46 | PN ---
DATE: 10/15/2016 The patient seen and examined. Interim events noted. The patient remains in transitional care unit. The patient feels okay. No specific complaint. No chest pain, no shortness of breath. PHYSICAL EXAMINATION: GENERAL: The patient is in no acute distress. VITAL SIGNS: Stable. HEART: S1, S2 normal, regular. LUNGS: Good bilateral air exchange. ABDOMEN: Soft, nontender. EXTREMITIES: No calf swelling, no tenderness, no acute ischemia. CENTRAL NERVOUS SYSTEM: Essentially unchanged. There is no active bleeding reported by nursing staff. Overall, patient's general medical condition is stable. PLAN: As ordered. Geraldo Shelton MD cc: [id number] TT: 10/15/2016 08:46:21 Confirmation # [id number] Dictation # [id number] en
[2016-10-16] MEDS: Insulin Regular 100 units/ml SC SCH ×4 (06:53→21:19)
--- NOTE | 2016-10-16 08:35 | PN ---
DATE: 10/16/2016 The patient seen and examined. Interim events noted. The patient remains in transitional care unit. The patient feels okay. No specific complaints. PHYSICAL EXAMINATION: The patient is in no acute distress. VITAL SIGNS: Stable. Physical exam is essentially unchanged. Overall, patient's medical condition is stable. PLAN: As ordered. Geraldo Shelton MD cc: [phone] TT: 10/16/2016 08:34:16 Confirmation # [id number] Dictation # [id number] jd
[2016-10-16] MEDS: GlipiZIDE 10 mg SR Tab PO SCH ×2 (09:26→17:09)
[2016-10-16] MEDS: Pantoprazole 40 mg EC Tab PO SCH (09:26)
[2016-10-17] MEDS: Insulin Regular 100 units/ml SC SCH ×4 (06:45→21:15)
[2016-10-17] MEDS: GlipiZIDE 10 mg SR Tab PO SCH ×2 (08:53→17:23)
[2016-10-17] MEDS: Pantoprazole 40 mg EC Tab PO SCH (08:54)
--- NOTE | 2016-10-17 09:18 | PN ---
DATE: 10/17/2016 The patient seen and examined. Interim events noted. The patient remains in transitional care unit. The patient feels okay. No specific complaints. No chest pain or shortness of breath. PHYSICAL EXAMINATION: GENERAL: The patient is in no acute distress. VITAL SIGNS: Stable. HEART: S1, S2 normal, regular. LUNGS: Good bilateral air exchange. ABDOMEN: Soft, nontender. EXTREMITIES: No calf swelling, no tenderness, no acute ischemia. CENTRAL NERVOUS SYSTEM: Essentially unchanged. DIAGNOSTIC DATA: Available reviewed. Overall, patient's general medical condition is stable. PLAN: As ordered. Geraldo Shelton MD cc: [phone] TT: 10/17/2016 09:17:12 Confirmation # [id number] Dictation # [id number] en
--- NOTE | 2016-10-17 09:55 | CP.PCM.CON ---
History of Present Illness - History of Present Illness History of Present Illness: 76 year old male patient with PMHx DM II, HTN and HLD was seen at bedside this morning after request for podiatry consultation concerning elongated, dystrophic , mycotic toenails x10. Patient was resting comfortably in bed at the time of visit. AAO x3. Patient states that he is a diabetic patient and has pain to toenails x10. Patient denies of any pain to bilateral lower extremities. Patient denies of any N/V/F/C or SOB today Past Patient History - Past Medical History & Family History Past Medical History?: Yes - Past Social History Smoking Status: Former Smoker - CARDIAC Hx Hypercholesterolemia: Yes Hx Hypertension: Yes - PULMONARY Hx Respiratory Disorders: No - NEUROLOGICAL Hx Neurological Disorder: No - HEENT Hx HEENT Problems: No - RENAL Hx Chronic Kidney Disease: No - ENDOCRINE/METABOLIC Hx Endocrine Disorders: Yes Hx Diabetes Mellitus Type 2: Yes - HEMATOLOGICAL/ONCOLOGICAL Hx Anemia: Yes Hx Blood Transfusions: Yes Hx Blood Transfusion Reaction: No Hx Human Immunodeficiency Virus (HIV): No - INTEGUMENTARY Hx Dermatological Problems: No - MUSCULOSKELETAL/RHEUMATOLOGICAL Hx Falls: No - GASTROINTESTINAL Hx Gastrointestinal Disorders: No Hx Gastritis: Yes Hx Hemorrhoids: Yes - GENITOURINARY/GYNECOLOGICAL Hx Genitourinary Disorders: No - PSYCHIATRIC Hx Substance Use: No - SURGICAL HISTORY Hx Surgeries: Yes Hx Herniorrhaphy: Yes (inguinal x2) - ANESTHESIA Hx Anesthesia: Yes Hx Anesthesia Reactions: No Hx Malignant Hyperthermia: No Meds Allergies/Adverse Reactions: Allergies Allergy/AdvReac Type Severity Reaction Status Date / Time No Known Allergies Allergy Verified 10/12/16 16:05 - Medications Medications: Current Medications Acetaminophen (Tylenol 325mg Tab) 650 mg PO Q6 PRN PRN Reason: Headache Dextrose (Glutose 15) 0 gm PO ONCE PRN; Protocol PRN Reason: Hypoglycemia Protocol Dextrose (Dextrose 50% Inj) 0 ml IV STAT PRN; Protocol PRN Reason: Hyglycemia Protocol Enalapril Maleate (Vasotec) 10 mg PO DAILY [facility] Last Admin: 10/17/16 08:54 Dose: 10 mg Glipizide (Glucotrol Xl) 10 mg PO BID [facility] Last Admin: 10/17/16 08:53 Dose: 10 mg Glucagon (Glucagen Diagnostic Kit) 0 mg IM STAT PRN; Protocol PRN Reason: Hypoglycemia Protocol Insulin Human Regular (Humulin R) 0 units SC ACHS [facility] PRN Reason: Protocol Last Admin: 10/17/16 06:45 Dose: 2 unit Pantoprazole Sodium (Protonix Ec Tab) 40 mg PO DAILY [facility] Last Admin: 10/17/16 08:54 Dose: 40 mg Sitagliptin Phosphate (Januvia) 100 mg PO DAILY [facility] Last Admin: 10/17/16 08:53 Dose: 100 mg Physical Exam - Constitutional Appears: Well, Non-toxic, No Acute Distress - Extremities Exam Additional comments: Bilateral lower extremities exam DERM: No open wound noted. No erythema is noted. No sign of infection noted. Elongated, dystrophic, mycotic toenails noted to digits x10. VASC: Non-Palpable DP noted bilaterally, non-palpable DP noted bilaterally. [employer]NA[employer] less than 3 seconds to all digits noted NEURO: Gross sensation intact ORTHO: No pain on palpation, no pain on passive ROM of B/L ankle, MTPJs. Manual muscle testing 5/5 bilaterally. - Neurological Exam Neurological exam: Alert, Oriented x3 - Psychiatric Exam Psychiatric exam: Normal Affect, Normal Mood - Skin Skin Exam: Normal Color, Warm Results - Vital Signs Recent Vital Signs: Last Vital Signs Temp 98.0 F 10/17/16 08:25 Pulse 73 10/17/16 08:25 Resp 20 10/17/16 08:25 BP 162/82 H 10/17/16 08:25 Pulse Ox 99 10/17/16 08:25 - Labs Labs: Laboratory Results - last 24 hr 10/16/16 10/16/16 10/16/16 10:56 16:19 20:54 POC Glucose (mg/dL) 237 H 144 H 218 H 10/17/16 05:59 POC Glucose (mg/dL) 176 H Assessment & Plan - Assessment and Plan (Free Text) Assessment: 76 year old diabetic female patient presents with elongated, dystrophic, mycotic toenails x10 Plan: Patient was seen, evaluated and treated with all questions and concerns addressed labs and vitals reviewed discussed in detail with Dr. Leal Elongated, dystrophic toenails were sharply cut with a large nail nipper up to level of normal length without any incident x10 Patient is stable from podiatry standpoint Podiatry signing off Please re-consult podiatry if any other lower extremity problems occur, thank you
[2016-10-18] MEDS: Insulin Regular 100 units/ml SC SCH ×4 (06:36→21:28)
--- NOTE | 2016-10-18 07:52 | PN ---
DATE: 10/18/2016 The patient seen and examined. Interim events noted. The patient remains in transitional care unit. Feels okay. No specific complaint, although patient is not a good historian. PHYSICAL EXAMINATION: GENERAL: The patient is in no acute distress. VITAL SIGNS: Stable. HEART: S1, S2 normal, regular. LUNGS: Good bilateral air entry. ABDOMEN: Soft, nontender. EXTREMITIES: No calf swelling, no tenderness, no acute ischemia. CENTRAL NERVOUS SYSTEM: Essentially unchanged. DIAGNOSTIC DATA: Available reviewed. Overall, patient's general medical condition is stable. PLAN: As ordered. Geraldo Shelton MD cc: [phone] TT: 10/18/2016 07:52:05 Confirmation # [id number] Dictation # [id number] en
[2016-10-18] MEDS: Pantoprazole 40 mg EC Tab PO SCH (08:18)
[2016-10-18] MEDS: GlipiZIDE 10 mg SR Tab PO SCH ×2 (08:19→17:25)
[2016-10-19] MEDS: Insulin Regular 100 units/ml SC SCH ×4 (07:03→21:11)
[2016-10-19] MEDS: GlipiZIDE 10 mg SR Tab PO SCH ×2 (07:59→17:02)
[2016-10-19] MEDS: Pantoprazole 40 mg EC Tab PO SCH (07:59)
[2016-10-19 08:21] LABS: HEMATOCRIT 31.2 % (35.0-51.0); MEAN CELL VOLUME 83.1 fl (80.0-94.0); MEAN CORPUSCULAR HEMOGLOBIN 27.9 pg (27.0-31.0); MEAN CORPUSCULAR HGB CONC 33.5 g/dL (33.0-37.0); RED CELL DISTRIBUTION WIDTH 23.8 % (11.5-14.5); WHITE BLOOD COUNT 5.9 K/uL (4.8-10.8)
[2016-10-19 08:32] VITALS: RESP 20
[2016-10-19 08:37] LABS: ALB/GLOB RATIO 0.9 (1.0-2.1); ALKALINE PHOSPHATASE 82 U/L (38-126); ALT/SGPT 22 U/L (21-72); AST/SGOT 19 U/L (17-59); BILIRUBIN,TOTAL 0.2 mg/dl (0.2-1.3); BLOOD UREA NITROGEN 15 mg/dl (9-20); CALCIUM 8.3 mg/dL (8.4-10.2); CARBON DIOXIDE 28 mmol/L (22-30); CHLORIDE 103 mmol/L (98-107); GFR AFRICAN-AMERICAN > 60; GLUCOSE,RANDOM 125 mg/dL (75-110); POTASSIUM 3.9 MMOL/L (3.6-5.0); SODIUM 141 mmol/l (132-148); TOTAL PROTEIN 6.6 G/DL (6.3-8.2)
--- NOTE | 2016-10-19 09:26 | PN ---
DATE: 10/19/2016 The patient is seen and examined. Interim events noted. Consults noted, appreciated. The patient r emains in transitional care. The patient feels okay. No specific complaints. PHYSICAL EXAMINATION: GENERAL: The patient is in no acute distress. VITAL SIGNS: Stable. HEART: S1, S2 normal, regular. LUNGS: Good bilateral air entry. ABDOMEN: Soft, nontender. EXTREMITIES: No calf swelling, no tenderness, no acute ischemia. CENTRAL NERVOUS SYSTEM: Essentially unchanged. DIAGNOSTIC DATA: Available diagnostic data reviewed. Overall, patient's general medical condition is stable and improving. PLAN: As ordered. Geraldo Shelton MD cc: [phone] TT: 10/19/2016 09:25:48 Confirmation # [id number] Dictation # [id number] [place]
[2016-10-20] MEDS: Insulin Regular 100 units/ml SC SCH ×4 (06:47→21:04)
[2016-10-20] MEDS ORDERED: Artificial Tears Opht Soln OU PRN (08:05)
[2016-10-20] MEDS: Pantoprazole 40 mg EC Tab PO SCH (08:25)
[2016-10-20] MEDS: GlipiZIDE 10 mg SR Tab PO SCH ×2 (08:25→17:18)
--- NOTE | 2016-10-20 09:04 | PN ---
DATE: 10/20/2016 The patient is seen and examined. Interim events noted. The patient remains in transitional care un it. Feels okay. Denies any specific complaint. No chest pain, no shortness of breath. PHYSICAL EXAMINATION: GENERAL: The patient is in no acute distress. VITAL SIGNS: Stable. Physical exam is essentially unchanged. ____ consult noted and appreciated. Overall, the patient's general medical condition is stable. PLAN: As ordered. Geraldo Shelton MD cc: [phone] TT: 10/20/2016 09:04:34 Confirmation # [id number] Dictation # [id number] jd
[2016-10-20 21:15] VITALS: PULSE 87; O2SAT 99
[2016-10-21] MEDS: Insulin Regular 100 units/ml SC SCH ×2 (06:44→11:56)
[2016-10-21 08:01] VITALS: BP 141/97; TEMP 98.1
[2016-10-21] MEDS: GlipiZIDE 10 mg SR Tab PO SCH (08:24)
[2016-10-21] MEDS: Pantoprazole 40 mg EC Tab PO SCH (08:24)
--- NOTE | 2016-10-21 08:59 | PN ---
DATE: 10/21/2016 The patient seen and examined. Interim events noted. The patient . No chest pain, no shortnes s of breath. No new complaints. PHYSICAL EXAMINATION: The patient is in no acute distress. VITAL SIGNS: Stable. HEART EXAMINATION: S1, S2 normal, regular. LUNGS: Good bilateral air entry. ABDOMEN: Soft, nontender. EXTREMITIES EXAMINATION: No calf swelling, no tenderness, . CENTRAL NERVOUS SYSTEM EXAMINATION: Unchanged. Overall the patient's general medical condition is s table. The patient is for possible discharge. Geraldo Shelton MD cc: [phone] TT: 10/21/2016 08:58:30 Confirmation # [id number] Dictation # [id number] jn
== END 2016-10-21 13:00 | DRG 379 ==
LOC: H.TCU 16:10
PROVIDERS: ADMIT Internal Medicine; ATTEND Internal Medicine
PROC: F07L6FZ Therapeutic Exercise Treatment of Musculoskeletal System - Lower Back / Lower Extremity using Assistive, Adaptive, Supportive or Protective Equipment (ICD-10-PCS; principal; 2016-10-12)
PROC: F08Z4FZ Home Management Treatment using Assistive, Adaptive, Supportive or Protective Equipment (ICD-10-PCS; 2016-10-12)
PROC: F07Z9FZ Gait Training/Functional Ambulation Treatment using Assistive, Adaptive, Supportive or Protective Equipment (ICD-10-PCS; 2016-10-12)
DX: K92.2 Gastrointestinal hemorrhage, unspecified (principal); E11.9 Type 2 diabetes mellitus without complications; D50.0 Iron deficiency anemia secondary to blood loss (chronic); I10 Essential (primary) hypertension; E78.5 Hyperlipidemia, unspecified; B35.1 Tinea unguium; E78.00 Pure hypercholesterolemia, unspecified; Z87.891 Personal history of nicotine dependence; L60.3 Nail dystrophy

== ENCOUNTER 2017-01-21 13:22 | Emergency (ER) | payer MEDICARE, MEDICAID ==
[2017-01-21 13:22] VITALS: BMI 17.3
[2017-01-21 13:28] VITALS: BP 134/90; PULSE 100; RESP 18; TEMP 98; O2SAT 98
--- NOTE | 2017-01-21 14:04 | ED PDOC ---
HPI: Abdomen Time Seen by Provider: 01/21/17 13:40 Chief Complaint (Nursing): Abdominal Pain Chief Complaint (Provider): Abdominal pain History Per: Patient History/Exam Limitations: no limitations Onset/Duration Of Symptoms: Days (Pain starts since 3 weeks ago.), Intermittent Episodes Outside of [place] travel?: No Current Symptoms Are (Timing): Still Present Severity: Moderate Pain Scale Rating Of: 5 Location Of Pain/Discomfort: Periumbilical, Other (Pain in lower abdomen.) Quality Of Discomfort: "Pain" Associated Symptoms: denies: Fever, Chills, Nausea, Vomiting, Diarrhea, Loss Of Appetite, Back Pain, Constipation, Urinary Symptoms Exacerbating Factors: None Alleviating Factors: Rest Last Bowel Movement: Yesterday Additional History Per: Patient Additional Complaint(s): CC: Abdominal pain. HPI: 76 yo M with history of DM type I, HTN and chronic gastritis presents to the ED complaining of lower abdominal pain since 3 weeks ago, 5/10, no radiated , intermittent, alleviating in rest, no worsening factors. Refers similar symptoms some time ago although do not remember when. Has history of diverticular disease requiring treatment with blood transfusion and antibiotics on October, received followup with Gastroenterology. Last bowel movement yesterday on night normal, no blood no mucus. Denies nausea, vomiting, fever, diarrhea, weakness, headache or any recent injury or trauma. ROS: negative except as above. PMH: HTN, DM type I, Chronic gastritis, Diverticulosis. PSH: none. SH: denies smoking, alcohol and recreational drugs. Meds: see notes. Allergies: NKA. Past Medical History Reviewed: Nursing Documentation, Vital Signs Vital Signs: Last Vital Signs Temp 98 F 01/21/17 13:26 Pulse 100 H 01/21/17 13:26 Resp 18 01/21/17 13:26 BP 134/90 01/21/17 13:26 Pulse Ox 98 01/21/17 17:13 - Medical History PMH: Anemia, Diabetes (type II), Gastritis, HTN, Hypercholesterolemia Denies: HIV, Chronic Kidney Disease - Surgical History Surgical History: No Surg Hx - Family History Family History: States: Diabetes - Social History Current smoker - smoking cessation education provided: No Alcohol: None Drugs: Denies - Immunization History Hx Tetanus Toxoid Vaccination: No Hx Influenza Vaccination: No Hx Pneumococcal Vaccination: No - Home Medications Home Medications: Ambulatory Orders Medication Instructions Recorded Acetaminophen [Tylenol 325mg tab] 650 mg PO Q6 PRN #30 tab 09/26/16 Atorvastatin Calcium 10 mg PO DAILY #30 tablet 09/26/16 Enalapril Maleate [Vasotec] 2.5 mg PO DAILY #30 tab 09/26/16 Pioglitazone HCl 30 mg PO DAILY #30 tablet 09/26/16 SITagliptin [Januvia] 100 mg PO DAILY #30 tab 09/26/16 GlipiZIDE SR [Glucotrol XL] 10 mg PO BID tab 10/12/16 Pantoprazole Sodium [Protonix] 40 mg PO DAILY 10/12/16 Glucagon [Glucagen Diagnostic Kit] 0 mg IM STAT PRN #1 vial 10/21/16 Insulin Human Regular [HumuLIN R] See Protocol SC ACHS 30 Days 10/21/16 Polyethylene Glycol/Polyvinyl 2 drop OU Q6 PRN 30 Days 10/21/16 [Artificial Tears] Dicyclomine [Dicyclomine HCl] 10 mg PO Q8 #10 cap 01/21/17 - Allergies Allergies/Adverse Reactions: Allergies Allergy/AdvReac Type Severity Reaction Status Date / Time No Known Allergies Allergy Verified 10/12/16 16:05 Review of Systems ROS Statement: Except As Marked, All Systems Reviewed And Found Negative Constitutional: Negative for: Fever, Chills, Sweats Eyes: Negative for: Pain, Vision Change ENT: Negative for: Ear Pain, Nose Pain, Mouth Pain Cardiovascular: Negative for: Chest Pain, Palpitations, Edema, Light Headedness Respiratory: Negative for: Cough, Shortness of Breath Gastrointestinal: Positive for: Abdominal Pain (Starts 3 weeks ago, intermittent on lower abdomen.). Negative for: Nausea, Vomiting, Diarrhea, Constipation Genitourinary Male: Negative for: Dysuria Musculoskeletal: Negative for: Neck Pain, Back Pain, Leg Pain Skin: Negative for: Rash Neurological: Negative for: Weakness, Numbness, Incoordination, Altered Mental Status Psych: Negative for: Anxiety Physical Exam - Reviewed Nursing Documentation Reviewed: Yes Vital Signs Reviewed: Yes - Physical Exam Appears: Positive for: Well, No Acute Distress Head Exam: Positive for: ATRAUMATIC, NORMOCEPHALIC Skin: Positive for: Normal Color Eye Exam: Positive for: Normal appearance, EOMI, PERRL ENT: Positive for: Normal ENT Inspection Neck: Positive for: Normal, Supple Cardiovascular/Chest: Positive for: Regular Rate, Rhythm. Negative for: Murmur Respiratory: Positive for: Normal Breath Sounds Pulses-Carotid (L): 2+ Pulses-Carotid (R): 2+ Pulses-Dorsalis Pedis (L): 2+ Pulses-Dorsalis Pedis (R): 2+ Pulses-Post. Tibialis (L): 2+ Pulses-Post. Tibialis (R): 2+ Pulses-Radial (L): 2+ Pulses-Radial (R): 2+ Gastrointestinal/Abdominal: Positive for: Bowel Sounds, Soft, Tenderness (mild tenderness on palpation in lower abdomen.). Negative for: Mass, Distended Back: Positive for: Normal Inspection Extremity: Positive for: Normal ROM. Negative for: Tenderness, Calf Tenderness Neurologic/Psych: Positive for: Alert, ed transporter II-XII, Oriented - Laboratory Results Result Diagrams: 01/21/17 14:24 01/21/17 14:24 - ECG O2 Sat by Pulse Oximetry: 98 Medical Decision Making Medical Decision Making: Time: 1430 Impression: 76 yo M with history of DM type I, HTN and chronic gastritis presents to the ED complaining of lower abdominal pain since 3 weeks ago. Plan: CBC CMP Glucose random Urinalysis Re evaluation. Time:1500 Impression: Patient refers feeling good, he still has mild pain, labs results show mild anemia, WBC WNL. Plan: Abd CAT scan with contrast. Re evaluate. Time: 1835 Impression: patient Abd CT no show signs of diverticulitis, feels better. Will discharge. Disposition - Clinical Impression Clinical Impression: Abdominal pain - Patient ED Disposition Is Patient to be Admitted: No Counseled Patient/Family Regarding: Studies Performed, Diagnosis, Need For Followup - Disposition Disposition: Routine/Home Disposition Time: 18:45 Condition: STABLE Additional Instructions: Followup with PMD in 2-3 days. Return to ED if worsening of symptoms or new symptoms.
[2017-01-21 14:44] LABS: BASO # 0.1 K/uL (0.0-0.2); EOS # 1.1 K/uL (0.0-0.7); EOS % 13.7 % (0.0-4.0); HEMOGLOBIN 10.6 g/dL (12.0-18.0); LYMPH # 1.4 K/uL (1.0-4.3); LYMPH % 17.2 % (20.0-40.0); MEAN CELL VOLUME 82.1 fl (80.0-94.0); MEAN CORPUSCULAR HEMOGLOBIN 27.4 pg (27.0-31.0); MEAN CORPUSCULAR HGB CONC 33.4 g/dL (33.0-37.0); MEAN PLATELET VOLUME 7.4 fl (7.2-11.7); MONO # 0.7 K/uL (0.0-0.8); MONO % 8.4 % (0.0-10.0); NEUT # 4.8 K/uL (1.8-7.0); NEUT % 59.7 % (50.0-75.0); NRBC % 0.1 % (0.0-0.0); RBC 3.87 Mil/uL (4.40-5.90); RED CELL DISTRIBUTION WIDTH 14.3 % (11.5-14.5); WHITE BLOOD COUNT 8.1 K/uL (4.8-10.8)
[2017-01-21 14:47] LABS: ALBUMIN 3.9 g/dL (3.5-5.0); ALT/SGPT 32 U/L (21-72); AST/SGOT 17 U/L (17-59); BLOOD UREA NITROGEN 13 mg/dl (9-20); CALCIUM 8.9 mg/dL (8.4-10.2); GFR AFRICAN-AMERICAN > 60; GFR NON-AFRICAN AMERICAN > 60
[2017-01-21] MEDS ORDERED: Iohexol 240 (50 ml) PO ONE (15:06)
[2017-01-21] MEDS ORDERED: Sodium Chloride 0.9% 50 ML IV ONE (18:08)
[2017-01-21] MEDS ORDERED: Iohexol 300 100 ML IJ ONE (18:08)
--- NOTE | 2017-01-21 18:38 | CT ---
PROCEDURE: CT Abdomen and Pelvis with contrast HISTORY: Abdominal pain, history of diverticular disease COMPARISON: None. TECHNIQUE: Contrast dose: 90 cc of Omnipaque 300 Radiation dose: Total exam DLP = mGy-cm. This CT exam was performed using one or more of the following dose reduction techniques: Automated exposure control, adjustment of the mA and/or kV according to patient size, and/or use of iterative reconstruction technique. FINDINGS: LOWER THORAX: Unremarkable. LIVER: Unremarkable. No gross lesion or ductal dilatation. GALLBLADDER AND BILE DUCTS: Unremarkable. PANCREAS: Unremarkable. No gross lesion or ductal dilatation. SPLEEN: Unremarkable. ADRENALS: Unremarkable. No mass. KIDNEYS AND URETERS: Unremarkable. No hydronephrosis. No solid mass. VASCULATURE: Unremarkable. No aortic aneurysm. BOWEL: Colonic diverticulosis without evidence of diverticulitis. No obstruction. No gross mural thickening. APPENDIX: Normal appendix. PERITONEUM: Unremarkable. No free fluid. No free air. LYMPH NODES: Unremarkable. No enlarged lymph nodes. BLADDER: Unremarkable. REPRODUCTIVE: Prostate enlargement. Right seminal vesicle calcification. BONES: No acute fracture. OTHER FINDINGS: None. IMPRESSION: Colonic diverticulosis without evidence of diverticulitis. Prostate enlargement. Correlate with PSA levels.
== END 2017-01-21 19:15 | disposition home or self-care (01) ==
LOC: H.ER 13:22
DX: R10.9 Unspecified abdominal pain (principal); E11.9 Type 2 diabetes mellitus without complications; E78.00 Pure hypercholesterolemia, unspecified; I10 Essential (primary) hypertension; K57.30 Diverticulosis of large intestine without perforation or abscess without bleeding; Z79.4 Long term (current) use of insulin
CPT/HCPCS: 74177; 80053; 82948; 85025; 99283; Q9966; Q9967

== ENCOUNTER 2017-01-24 17:49 | Inpatient (IN) | payer MEDICARE, MEDICAID ==
[2017-01-24] MEDS ORDERED: Dextrose 50% SYRINGE Inj (50 ml) ONE (17:58)
[2017-01-24] MEDS ORDERED: Dextrose 50% SYRINGE Inj (50 ml) IVP STA ×2 (18:17→18:18)
[2017-01-24 18:27] LABS: BASO # 0.1 K/uL (0.0-0.2); BASO % 0.5 % (0.0-2.0); EOS # 0.5 K/uL (0.0-0.7); EOS % 4.8 % (0.0-4.0); HEMOGLOBIN 11.2 g/dL (12.0-18.0); LYMPH # 0.8 K/uL (1.0-4.3); LYMPH % 7.3 % (20.0-40.0); MEAN CELL VOLUME 82.8 fl (80.0-94.0); MEAN CORPUSCULAR HEMOGLOBIN 26.6 pg (27.0-31.0); MEAN CORPUSCULAR HGB CONC 32.1 g/dL (33.0-37.0); MEAN PLATELET VOLUME 7.7 fl (7.2-11.7); MONO # 0.6 K/uL (0.0-0.8); MONO % 5.1 % (0.0-10.0); NEUT # 9.4 K/uL (1.8-7.0); NEUT % 82.3 % (50.0-75.0); PLATELET COUNT 356 K/uL (130-400); RBC 4.21 Mil/uL (4.40-5.90); RED CELL DISTRIBUTION WIDTH 14.7 % (11.5-14.5); WHITE BLOOD COUNT 11.4 K/uL (4.8-10.8)
[2017-01-24 18:40] LABS: ALBUMIN 4.4 g/dL (3.5-5.0); ALT/SGPT 29 U/L (21-72); AST/SGOT 28 U/L (17-59); BLOOD UREA NITROGEN 25 mg/dl (9-20); CALCIUM 9.5 mg/dL (8.4-10.2); GFR AFRICAN-AMERICAN > 60; GFR NON-AFRICAN AMERICAN > 60
--- NOTE | 2017-01-24 18:45 | ED PDOC ---
Hyperglycemia/Hypoglycemia Time Seen by Provider: 01/24/17 17:57 Chief Complaint (Nursing): Altered Mental Status Chief Complaint (Provider): Hypoglycemia History Per: Patient, EMS History/Exam Limitations: clinical condition Onset/Duration Of Symptoms: Mins (patient was found just prior to arrival) Current Symptoms Are (Timing): Still Present Severity: Moderate Current Diabetic Medications: Insulin, Oral Medication Causative (Exacerbating) Factor(s): Missed Taking Medication : The patient does not have any of the infectious symptoms listed except for those marked. Treatment Prior To Provider Evaluation: Accucheck (20's-30's), D50W Given (2x times) Response To Treatment: Good Response Additional Complaint(s): 76 year old male with a pertinent medical history diabetes is brought into the ED by EMS when someone found him lying on the ground just prior to arrival. EMS did an accucheck on the patient and found that the patient's glucose level was in the 20-30's in the field. 2x amps of D50 was given to patient upon arrival to the ED. He reports that he takes 2 medications diabetes and "sometimes insulin". PMD: . Past Medical History Reviewed: Nursing Documentation, Vital Signs, Unable To Obtain (due to clinical condition and possible altered mental status) Vital Signs: Last Vital Signs Temp 96 F L 01/24/17 17:51 Pulse 99 H 01/24/17 18:26 Resp 20 01/24/17 18:26 BP 178/90 H 01/24/17 18:26 Pulse Ox 98 01/24/17 18:26 - Medical History PMH: Diabetes, HTN - Family History Family History: States: Unknown Family Hx - Home Medications Home Medications: Ambulatory Orders Medication Instructions Recorded Unobtainable 01/24/17 - Allergies Allergies/Adverse Reactions: Allergies Allergy/AdvReac Type Severity Reaction Status Date / Time No Known Allergies Allergy Verified 01/24/17 21:37 Review of Systems ROS Statement: Except As Marked, All Systems Reviewed And Found Negative Neurological: Positive for: Altered Mental Status, Other (hypoglycemic episode) Physical Exam - Reviewed Nursing Documentation Reviewed: Yes Vital Signs Reviewed: Yes - Physical Exam Appears: Positive for: Well, Non-toxic, No Acute Distress Head Exam: Positive for: ATRAUMATIC, NORMOCEPHALIC Skin: Positive for: Normal Color, Warm, Dry ENT: Positive for: Other (dry mucous membranes) Cardiovascular/Chest: Positive for: Regular Rate, Rhythm Respiratory: Positive for: Normal Breath Sounds. Negative for: Respiratory Distress Extremity: Positive for: Normal ROM (patient is moving all extremities) Neurologic/Psych: Positive for: Alert, Oriented (1x) - Laboratory Results Result Diagrams: 01/26/17 06:00 01/26/17 06:00 - ECG Interpretation Of ECG: NSR @ 98, no ST-T changes. O2 Sat by Pulse Oximetry: 98 (RA) Pulse Ox Interpretation: Normal - Critical Care Total Time (In Min): 30 Medical Decision Making Medical Decision Makin:57 Initial impression: 76 year old male with hypoglycemia and a possible altered mental status. Initial plan: * CT head w/o contrast * EKG * CMP * troponin I * udip * CBC * PT/PTT * XRay chest * accucheck * urinalysis * D50 injection 50ml IVP 2x * reevaluation Scribe Attestation: Documented by Edna White, acting as a scribe for Chrissy Martin MD. Provider Scribe Attestation: All medical record entries made by the Scribe were at my direction and personally dictated by me. I have reviewed the chart and agree that the record accurately reflects my personal performance of the history, physical exam, medical decision making, and the department course for this patient. I have also personally directed, reviewed, and agree with the discharge instructions and disposition. Disposition - Clinical Impression Clinical Impression: Altered mental status, Hypoglycemia - Disposition Disposition: Transfer of Care Disposition Time: 19:00 Condition: STABLE Patient Signed Over To: Bryant Montano Handoff Comments: Pending labs and imaging.
[2017-01-24 19:03] LABS: ALB/GLOB RATIO 0.9 (1.0-2.1)
--- NOTE | 2017-01-24 19:19 | ED PDOC ---
- Laboratory Results Result Diagrams: 01/24/17 18:23 01/24/17 18:23 - ECG O2 Sat by Pulse Oximetry: 98 (RA) - CT Scan/US CT head Other Rad Studies (CT/US): Read By Radiologist, Radiology Report Reviewed (see [facility] for interpretation) Medical Decision Making Medical Decision Makin:00 Patient is signed out to me by Chrissy Martin MD pending head CT, reevaluation, and final disposition. 20:18 CT head is read and reviewed by radiologist FINDINGS: Brain: Low attenuation changes identified in the periventricular and subcortical regions bilaterally in a pattern which is nonspecific but suggests small vessel ischemic change. In addition, encephalomalacia in the left MUSIC ASSISTANT distribution, occipital lobe presumably is chronic based on low density. Consider MRI for acute CVA detection as clinically indicated. There is cerebral and cerebellar atrophy. No hemorrhage. Ventricles: Unremarkable. No ventriculomegaly. Bones/joints: Soft tissue calcifications in the right parietal bone level presumably chronic. No acute fracture. Soft tissues: Unremarkable. Sinuses: Unremarkable as visualized. No acute sinusitis. Mastoid air cells: Unremarkable as visualized. No mastoid effusion. IMPRESSION: Low attenuation changes identified in the periventricular and subcortical regions bilaterally in a pattern which is nonspecific but suggests small vessel ischemic change. In addition,encephalomalacia in the left MUSIC ASSISTANT distribution, occipital lobe presumably is chronic based on low density. Consider MRI for acute CVA detection as clinically indicated. 20:33 Discussed case with who covers for . Patient is diagnosed with hypoglycemia. Patient will be admitted to telemetry under . Scribe Attestation: Documented by Edna White, acting as a scribe for Bryant Montano MD. Provider Scribe Attestation: All medical record entries made by the Scribe were at my direction and personally dictated by me. I have reviewed the chart and agree that the record accurately reflects my personal performance of the history, physical exam, medical decision making, and the department course for this patient. I have also personally directed, reviewed, and agree with the discharge instructions and disposition. Disposition - Clinical Impression Clinical Impression: Altered mental status, Hypoglycemia - POA Present On Arrival: None - Disposition Disposition: Admitted as In-Patient Disposition Time: 20:33 Condition: STABLE
[2017-01-24 19:22] LABS: INR 0.9 (0.9-1.2); PARTIAL THROMBOPLASTIN TIME 38.5 Seconds (25.6-37.1); PROTHROMBIN TIME 9.8 Seconds (9.8-13.1)
[2017-01-24 22:12] LABS: BANDS 1 % (0-2); BASOPHIL 1 % (0-2); EOSINOPHIL 6 % (0-7); LYMPHOCYTE 8 % (20-50); MONOCYTE 5 % (0-10); NEUTROPHIL 79 % (42-75); TOTAL CELLS COUNTED 100
[2017-01-24 22:13] LABS: ANISOCYTOSIS SLIGHT; LARGE PLATELETS PRESENT; PLATELET ESTIMATE NORMAL (NORMAL)
--- NOTE | 2017-01-24 22:36 | CP.PCM.HP ---
History of Present Illness - History of Present Illness History of Present Illness: PCP: Artem Madrigal MD Chief Complaint: altered mental Status HPI: The hx is obtained from the patient and the medical records and Dr Madrigal his PCP. He s a 76 years old male with hx of DM II on Januvia and Lantus insulin, and CVA who lives alone, and has his brother who attends to him once daily to administer his Insulin. He was brought to the ED after he was found unresponsive lying on the ground. Accu check done showed Glucose of 20. In the the ED he was given 2 amps of D50 IV and became awake and later able to answer some questions. He referred not remembering how he got to the hospital, the names of his medications nor the concentration. he has no headaches, dizziness, nausea, vomits, SOB, chest pain nor palpitations. PMH: DM II (on Januvia and his brother drawing up and administering his Lantus) ; CVA PSH: denies SH: Former smoker; former Alcohol drinker, Quit 5 years; No illegal drug use; Live alone FH: No hereditary disease Allergies: NKDA Medication: Lantus/ Januvia Present on Admission - Present on Admission Any Indicators Present on Admission: No History of DVT/PE: No History of Uncontrolled Diabetes: No Urinary Catheter: No Decubitus Ulcer Present: No Review of Systems - Constitutional Constitutional: Weakness. absent: Anorexia, Fever, Headache - EENT Eyes: Requires Corrective Lenses. absent: Diplopia, Floaters, Photophobia, Sees Flashes Ears: absent: Decreased Hearing, Ear Discharge, Tinnitus, Other Nose/Mouth/Throat: absent: Epistaxis, Nasal Congestion, Nasal Discharge, Sinus Pain, Sinus Pressure - Cardiovascular Cardiovascular: absent: Chest Pain, Dyspnea, Edema - Respiratory Respiratory: absent: Cough, Dyspnea, Wheezing, Stridor - Gastrointestinal Gastrointestinal: absent: Abdominal Pain, Constipation, Diarrhea, Nausea, Vomiting - Genitourinary Genitourinary: absent: Dysuria, Flank Pain, Hematuria, Urinary Frequency - Musculoskeletal Musculoskeletal: Muscle Weakness Additional comments: Pain to the feet. Using walker because of leg weakness. - Integumentary Integumentary: absent: Pruritus, Rash, Skin Ulcer, Sores, Striae, Swelling - Neurological Neurological: Memory Loss, Paresthesias, Weakness. absent: Confusion, Focal Weakness - Psychiatric Psychiatric: absent: Anxiety, Depression, Panic Attacks - Endocrine Endocrine: absent: Palpitations, Polydipsia, Polyphagia, Polyuria - Hematologic/Lymphatic Hematologic: absent: Easy Bleeding, Easy Bruising Past Patient History - Past Medical History & Family History Past Medical History?: Yes - Past Social History Smoking Status: Former Smoker Chewing Tobacco Use: No Cigar Use: No Alcohol: None Drugs: Denies Home Situation {Lives}: Alone - CARDIAC Hx Cardiac Disorders: No - PULMONARY Hx Respiratory Disorders: No - NEUROLOGICAL HX Cerebrovascular Accident: Yes - HEENT Hx HEENT Problems: No - RENAL Hx Chronic Kidney Disease: No - ENDOCRINE/METABOLIC Hx Diabetes Mellitus Type 2: Yes - HEMATOLOGICAL/ONCOLOGICAL Hx Blood Disorders: No - INTEGUMENTARY Hx Dermatological Problems: No - MUSCULOSKELETAL/RHEUMATOLOGICAL Hx Musculoskeletal Disorders: No - GASTROINTESTINAL Hx Gastrointestinal Disorders: No - GENITOURINARY/GYNECOLOGICAL Hx Genitourinary Disorders: No - PSYCHIATRIC Hx Psychophysiologic Disorder: No Hx Substance Use: No - SURGICAL HISTORY Hx Surgeries: No - ANESTHESIA Hx Anesthesia: No Meds Allergies/Adverse Reactions: Allergies Allergy/AdvReac Type Severity Reaction Status Date / Time No Known Allergies Allergy Verified 01/24/17 21:37 Physical Exam - Constitutional Appears: No Acute Distress - Head Exam Head Exam: ATRAUMATIC, NORMAL INSPECTION, NORMOCEPHALIC - Eye Exam Eye Exam: EOMI, Normal appearance Pupil Exam: NORMAL ACCOMODATION, PERRL - ENT Exam ENT Exam: Mucous Membranes Moist, Normal Exam, Normal External Ear Exam, Normal Oropharynx - Neck Exam Neck exam: Positive for: Full Rom, Normal Inspection. Negative for: Lymphadenopathy, Tenderness - Respiratory Exam Respiratory Exam: Clear to Auscultation Bilateral, Rales, Rhonchi, Wheezes - Cardiovascular Exam Cardiovascular Exam: REGULAR RHYTHM, RRR, +S1, +S2 - GI/Abdominal Exam GI & Abdominal Exam: Normal Bowel Sounds, Soft. absent: Mass, Tenderness - Rectal Exam Rectal Exam: Deferred - Extremities Exam Extremities exam: Positive for: normal inspection. Negative for: calf tenderness, full ROM, joint swelling, pedal edema - Back Exam Back exam: NORMAL INSPECTION. absent: CVA tenderness (L), CVA tenderness (R) - Neurological Exam Neurological exam: Alert, CN II-XII Intact, Oriented x3, Reflexes Normal - Psychiatric Exam Psychiatric exam: Normal Affect, Normal Mood - Skin Skin Exam: Dry, Intact, Normal Color, Warm Results - Vital Signs Recent Vital Signs: Last Vital Signs Temp 98.7 F 01/24/17 19:58 Pulse 94 H 01/24/17 19:58 Resp 16 01/24/17 19:58 BP 132/87 01/24/17 19:58 Pulse Ox 98 01/24/17 20:50 - Labs Result Diagrams: 01/24/17 18:23 01/24/17 18:23 - Impressions Impression: NSR 98/min - Imaging and Cardiology CT scan - head Status: Image reviewed by me, Report reviewed by me Additional comment: FINDINGS: Brain: Low attenuation changes identified in the periventricular and subcortical regions bilaterally in a pattern which is nonspecific but suggests small vessel ischemic change. In addition, encephalomalacia in the left STORE DIRECTOR distribution, occipital lobe presumably is chronic based on low density. Consider MRI for acute CVA detection as clinically indicated. There is cerebral and cerebellar atrophy. No hemorrhage. Ventricles: Unremarkable. No ventriculomegaly. Bones/joints: Soft tissue calcifications in the right parietal bone level presumably chronic. No acute fracture. Soft tissues: Unremarkable. Sinuses: Unremarkable as visualized. No acute sinusitis. Mastoid air cells: Unremarkable as visualized. No mastoid effusion. IMPRESSION: Low attenuation changes identified in the periventricular and subcortical regions bilaterally in a pattern which is nonspecific but suggests small vessel ischemic change. In addition, encephalomalacia in the left STORE DIRECTOR distribution, occipital lobe presumably is chronic based on low density. Consider MRI for acute CVA detection as clinically indicated. Chest x-ray Status: Image reviewed by me Additional comment: No infiltrate Assessment & Plan - Assessment and Plan (Free Text) Assessment: #. DM II with Hypoglycemia and Coma #. Dehydration #. Anemia #. Chronic CVA #. Elevated Blood Pressure Plan: 76 years old male with hx of DM II on Januvia and Lantus insulin, and CVA who lives alone, his brother draws up and administer the Insulin. The Patient was found unresponsive with Blood Glucose of 20mg/dl. In the the ED he received 2 amps of D50 IV and became awake. #. DM II with Hypoglycemia and Coma, probably due to unintentional overdose of Lantus. Patient has poor vision and has errors in drawing up his Lantus into the Syringe. - Hold lantus - Diabetic Diet - Accu check ACHS - Aspart sliding scale according to Accu check ACHS - If blood Glucose increase, Januvia could be added - hbA1c - Consult Social service for health Aide visit to draw up patient's Insulin #. Dehydration - IV fluids NS at 125/hr - follow renal labs #. Anemia - follow Iron panel #. Chronic CVA - ASA/ Lipitor #. Elevated Blood Pressure - Monitor Blood Pressure #. DVT prophylaxis with SCD #. Code Status: Full - Date & Time Date: 01/24/17 Time: 22:35
[2017-01-25] MEDS: Sodium Chloride 0.9% 1,000 ML IV SCH ×2 (00:45→08:36)
[2017-01-25] MEDS: Insulin Lispro (humaLOG) 100 Units/ml Inj SC SCH ×3 (06:07→17:21)
[2017-01-25 07:08] LABS: HEMOGLOBIN 8.7 g/dL (12.0-18.0); MEAN CELL VOLUME 82.4 fl (80.0-94.0); MEAN CORPUSCULAR HEMOGLOBIN 27.5 pg (27.0-31.0); MEAN CORPUSCULAR HGB CONC 33.3 g/dL (33.0-37.0); RBC 3.18 Mil/uL (4.40-5.90); RED CELL DISTRIBUTION WIDTH 14.4 % (11.5-14.5); WHITE BLOOD COUNT 9.3 K/uL (4.8-10.8)
[2017-01-25 07:23] LABS: BLOOD UREA NITROGEN 24 mg/dl (9-20); CALCIUM 8.6 mg/dL (8.4-10.2); GFR AFRICAN-AMERICAN > 60; GFR NON-AFRICAN AMERICAN > 60
[2017-01-25] MEDS ORDERED: Insulin Lispro (humaLOG) 100 Units/ml Inj SC SCH ×2 (07:30)
[2017-01-25 07:42] LABS: IRON 30 ug/dL (49-181)
[2017-01-25 07:53] LABS: % IRON SATURATION 10 % (20-55); TOTAL IRON BINDING CAPACITY 304 ug/dL (250-450)
--- NOTE | 2017-01-25 08:16 | CARD ---
APPROVED REPORT EKG Measurement Heart [id number] MI [id number] <Conclusion> Normal sinus rhythm Normal ECG
--- NOTE | 2017-01-25 09:19 | CP.PCM.PN ---
Subjective - Date & Time of Evaluation Date of Evaluation: 01/25/17 Time of Evaluation: 08:30 - Subjective Subjective: No fever had bloody BM last night has mild abd pain no N/V denies melena no [place] no dizziness no CP no SOB Objective - Vital Signs/Intake and Output Vital Signs (last 24 hours): Temp Pulse Resp BP Pulse Ox 98.5 F 97 H 18 151/82 H 100 01/25/17 08:27 01/25/17 08:38 01/25/17 08:27 01/25/17 08:27 01/25/17 08:27 - Medications Medications: Current Medications Atorvastatin Calcium (Lipitor) 20 mg PO DAILY [facility] Last Admin: 01/25/17 08:37 Dose: Not Given Sodium Chloride (Sodium Chloride 0.9%) 1,000 mls @ 125 mls/hr IV .Q8H [facility] Stop: 01/25/17 23:51 Last Admin: 01/25/17 08:36 Dose: 125 mls/hr Insulin Human Lispro (Humalog) 0 units SC Q6H [facility] PRN Reason: Protocol Last Admin: 01/25/17 06:07 Dose: Not Given Pantoprazole Sodium (Protonix Inj) 80 mg IVP ONCE ONE Stop: 01/25/17 09:17 Pantoprazole Sodium (Protonix Inj) 40 mg IVP Q12 [facility] - Labs Labs: PT 9.8 Seconds (9.8-13.1) 01/24/17 18:23 INR 0.9 (0.9-1.2) 01/24/17 18:23 APTT 38.5 Seconds (25.6-37.1) H 01/24/17 18:23 - Constitutional Appears: No Acute Distress - Head Exam Head Exam: NORMAL INSPECTION, NORMOCEPHALIC - Eye Exam Eye Exam: EOMI, Normal appearance Pupil Exam: NORMAL ACCOMODATION - ENT Exam ENT Exam: Mucous Membranes Moist, Normal External Ear Exam - Neck Exam Neck Exam: Full ROM. absent: Meningismus - Respiratory Exam Respiratory Exam: NORMAL BREATHING PATTERN. absent: Respiratory Distress - Cardiovascular Exam Cardiovascular Exam: REGULAR RHYTHM, +S1, +S2 - GI/Abdominal Exam GI & Abdominal Exam: Soft, Normal Bowel Sounds. absent: Tenderness - Extremities Exam Extremities Exam: Full ROM, Normal Capillary Refill. absent: Calf Tenderness - Back Exam Back Exam: absent: CVA tenderness (L), CVA tenderness (R) - Neurological Exam Neurological Exam: Alert, Awake, CN II-XII Intact, Oriented x3 - Psychiatric Exam Psychiatric exam: Normal Affect, Normal Mood - Skin Skin Exam: Dry, Normal Color, Warm Assessment and Plan - Assessment and Plan (Free Text) Assessment: 76 years old male with hx of DM II on Januvia and Lantus insulin, and CVA who lives alone, his brother draws up and administer the Insulin. The Patient was found unresponsive with Blood Glucose of 20mg/dl. In the the ED he received 2 amps of D50 IV and became awake. While being monitored in Telemetry , the pt had bloody bowel movement. 1. Rectal Bleeding prob lower GI bleed Hgb dropped from 11.2 to 8.7 - dilution could also be a factor in lower Hgb as pt was given IVF and pt came dehydrated GI consulted- Dr Ruiz, plan to Scope tomorrow Protonix IV 2. DM II with Hypoglycemia and Coma, probably due to unintentional overdose of Lantus. Patient has poor vision and has errors in drawing up his Lantus into the Syringe. - Hold lantus - Diabetic Diet - Accu check ACHS - Aspart sliding scale according to Accu check ACHS - hbA1c - Consult Social service for health Aide visit to draw up patient's Insulin 3. Dehydration - IV fluids NS at 125/hr - follow renal labs 4. Anemia, acute on chronic sec to GI bleed - follow Iron panel - transfuse 1 unit PRBC monitor H/H 5. Chronic CVA - cont Lipitor - hold ASA for now 6. HTN - Monitor Blood Pressure - start low dose Toprol #. DVT prophylaxis with SCD #. Code Status: Full Surrogate dicision maker - brother Elian
--- NOTE | 2017-01-25 09:35 | CT ---
PROCEDURE: CT HEAD WITHOUT CONTRAST. HISTORY: AMS COMPARISON: None availableGo. TECHNIQUE: Axial computed tomography images were obtained through the head/brain without intravenous contrast. Radiation dose: Total exam DLP = 790.96 mGy-cm. This CT exam was performed using one or more of the following dose reduction techniques: Automated exposure control, adjustment of the mA and/or kV according to patient size, and/or use of iterative reconstruction technique. FINDINGS: HEMORRHAGE: No intracranial hemorrhage. BRAIN: No mass effect or edema. No evidence of acute infarct. Moderate to severe atrophy greater than expected for patient age. Moderate periventricular white matter lucency consistent with age-related microvascular white matter ischemic change. Old left occipital parietal infarct manifested as encephalomalacia, in the left AUTOMATIC THREAD WINDER distribution. VENTRICLES: Unremarkable. No hydrocephalus. CALVARIUM: No calvarial fracture. There is minimal right posterior parietal scalp calcification, nonspecific. PARANASAL SINUSES: Unremarkable as visualized. No significant inflammatory changes. MASTOID AIR CELLS: Unremarkable as visualized. No inflammatory changes. OTHER FINDINGS: None. IMPRESSION: No evidence of acute infarct. No intracranial hemorrhage. Old left occipital parietal infarct. Age related atrophy and chronic white matter ischemic change. Preliminary interpretation of this examination was reported by [employer] at 8:18 p.m. on 01/24/2017. There is concurrence of this report with the preliminary interpretation.
--- NOTE | 2017-01-25 10:45 | RAD ---
HISTORY: AMS COMPARISON: No prior. FINDINGS: LUNGS: No active pulmonary disease. PLEURA: No significant pleural effusion identified, no pneumothorax apparent. CARDIOVASCULAR: No radiographic findings to suggest acute or significant cardiovascular disease. OSSEOUS STRUCTURES: No significant abnormalities. VISUALIZED UPPER ABDOMEN: Normal. OTHER FINDINGS: None. IMPRESSION: No active disease.
[2017-01-25] MEDS ORDERED: Metoprolol Succinate 25 mg XL Tab PO STA (15:35)
[2017-01-25] MEDS ORDERED: Sodium Chloride 0.9% 1,000 ML IV SCH (15:39)
[2017-01-25] MEDS ORDERED: Peg-Electrolyte Oral Soln 4L (Golytely) PO ONE (16:00)
[2017-01-25] MEDS ORDERED: Bisacodyl 5mg EC Tab PO ONE (22:00)
[2017-01-26 07:15] LABS: HEMOGLOBIN 11.6 g/dL (12.0-18.0); MEAN CELL VOLUME 82.5 fl (80.0-94.0); MEAN CORPUSCULAR HEMOGLOBIN 27.8 pg (27.0-31.0); MEAN CORPUSCULAR HGB CONC 33.7 g/dL (33.0-37.0); RBC 4.16 Mil/uL (4.40-5.90); RED CELL DISTRIBUTION WIDTH 14.3 % (11.5-14.5); WHITE BLOOD COUNT 7.1 K/uL (4.8-10.8)
[2017-01-26 07:29] LABS: BLOOD UREA NITROGEN 10 mg/dl (9-20); CALCIUM 8.6 mg/dL (8.4-10.2); GFR AFRICAN-AMERICAN > 60; GFR NON-AFRICAN AMERICAN > 60
[2017-01-26] MEDS: Metoprolol Succinate 25 mg XL Tab PO SCH (09:00)
--- NOTE | 2017-01-26 10:45 | CP.PCM.PN ---
Subjective - Date & Time of Evaluation Date of Evaluation: 01/26/17 Time of Evaluation: 10:43 - Subjective Subjective: Patient is seen and examined bedside this AM. He was seen working with PT, able to stand and with a help of a walker, seen ambulating to the BR. Had a blood BM yesterday but denies any this AM. s/p 1 unit of PRBC transfusion. pt is stable and denies chest pain, palpations, dyspnea, abdominal pain, constipation, diarrhea. Objective - Vital Signs/Intake and Output Vital Signs (last 24 hours): Temp Pulse Resp BP Pulse Ox 98.5 F 97 H 20 164/96 H 98 01/26/17 08:33 01/26/17 09:00 01/26/17 08:33 01/26/17 09:00 01/26/17 08:33 - Medications Medications: Current Medications Atorvastatin Calcium (Lipitor) 20 mg PO DAILY [facility] Last Admin: 01/26/17 09:00 Dose: Not Given Iron Sucrose 100 mg/ Sodium (Chloride) 105 mls @ 105 mls/hr IVPB ONCE ONE Stop: 01/26/17 16:38 Insulin Human Lispro (Humalog) 0 units SC Q6H [facility] PRN Reason: Protocol Last Admin: 01/25/17 17:21 Dose: 4 units Metoprolol Succinate (Toprol Xl) 25 mg PO DAILY [facility] Last Admin: 01/26/17 09:00 Dose: 25 mg - Labs Labs: 01/26/17 06:00 01/26/17 06:00 PT 9.8 Seconds (9.8-13.1) 01/24/17 18:23 INR 0.9 (0.9-1.2) 01/24/17 18:23 APTT 38.5 Seconds (25.6-37.1) H 01/24/17 18:23 - Constitutional Appears: Well, No Acute Distress - Head Exam Head Exam: ATRAUMATIC, NORMOCEPHALIC - Eye Exam Eye Exam: EOMI Additional comments: redness noted in both eye Vision is poor likely due to complications of diabetes - ENT Exam ENT Exam: Mucous Membranes Moist - Neck Exam Neck Exam: Full ROM - Respiratory Exam Respiratory Exam: Clear to Ausculation Bilateral, NORMAL BREATHING PATTERN. absent: Wheezes - Cardiovascular Exam Cardiovascular Exam: REGULAR RHYTHM, +S1, +S2 - GI/Abdominal Exam GI & Abdominal Exam: Soft, Normal Bowel Sounds. absent: Guarding - Extremities Exam Extremities Exam: Normal Capillary Refill, Normal Inspection. absent: Calf Tenderness, Pedal Edema - Neurological Exam Neurological Exam: Alert, Awake, Oriented x3 - Psychiatric Exam Psychiatric exam: Normal Affect, Normal Mood - Skin Skin Exam: Dry, Normal Color, Warm Assessment and Plan - Assessment and Plan (Free Text) Assessment: Assessment: 76 years old male with hx of DM II on Januvia and Lantus insulin, and CVA who lives alone, his brother draws up and administer the Insulin. The Patient was found unresponsive with Blood Glucose of 20mg/dl. In the the ED he received 2 amps of D50 IV and became awake. While being monitored in Telemetry , the pt had bloody bowel movement. S/p 1 unit of PRBC, hb 8.7-->10-->11.6 this AM 1. Rectal Bleeding - likely 2/2 to lower GI bleed - Hgb dropped from 11.2 to 8.7- dilution could also be a factor in lower Hgb. s /p IVF for dehydation - s/p 1 unit of PRBC, stable, no bleeding this AM. - GI consulted- Dr Ruiz, plan to Scope today, follow up results - Protonix IV 2. DM II with Hypoglycemia and Coma, probably due to unintentional overdose of Lantus. Patient has poor vision and has errors in drawing up his Lantus into the Syringe. - continue lantus - start insulin determir 6 Units - Diabetic Diet - Accu check ACHS - Aspart sliding scale according to Accu check ACHS - hbA1c appreciated, 7.2 - Consult Social service for health Aide visit to draw up patient's Insulin 3. Dehydration - IV fluids NS at 125/hr - follow renal labs 4. Anemia, acute on chronic sec to GI bleed - low Irongiovani chronic iron deficiency anemia with acute GI bleeding - s/p 1 unit PRBC - monitor H/H 5. Chronic CVA - cont Lipitor - restart ASA for now 6. HTN - Monitor Blood Pressure - continue low dose Toprol #. DVT prophylaxis with SCD #. Code Status: Full Surrogate dicision maker - brother Elian Plan to transfer pt to TCU or subacute rehab for physical therapy.
[2017-01-26] MEDS ORDERED: Lactated Ringer's 500 ML IV ONE (12:02)
[2017-01-26] MEDS ORDERED: Propofol 10 mg/ml Inj (20 ML) ONE (12:32)
[2017-01-26] MEDS: Insulin Lispro (humaLOG) 100 Units/ml Inj SC SCH ×2 (17:00→21:52)
[2017-01-26] MEDS ORDERED: Insulin Detemir 100 Units/ml Inj SC SCH ×2 (22:00)
[2017-01-27] MEDS: Insulin Lispro (humaLOG) 100 Units/ml Inj SC SCH ×4 (08:27→21:30)
[2017-01-27] MEDS: Metoprolol Succinate 25 mg XL Tab PO SCH (08:29)
[2017-01-27 08:32] VITALS: RESP 18
[2017-01-27] MEDS: Enoxaparin 40 mg Syringe SC SCH (09:55)
--- NOTE | 2017-01-27 11:49 | CP.PCM.PN ---
Subjective - Date & Time of Evaluation Date of Evaluation: 01/27/17 Time of Evaluation: 10:30 - Subjective Subjective: Patient seen and examined bedside. Hemodynamically stable, afebrile. No acute issues overnight. Feeling sleepy and tired .No more episodes of GI bleed tolerating diet Denies any abdominal pain Objective - Vital Signs/Intake and Output Vital Signs (last 24 hours): Temp Pulse Resp BP Pulse Ox 98.7 F 79 18 128/68 97 01/27/17 08:00 01/27/17 08:29 01/27/17 08:00 01/27/17 08:29 01/27/17 08:00 Intake and Output: 01/27/17 01/27/17 06:59 18:59 Intake Total 850 Balance 850 - Medications Medications: Current Medications Atorvastatin Calcium (Lipitor) 20 mg PO DAILY [facility] Last Admin: 01/27/17 08:29 Dose: 20 mg Enoxaparin Sodium (Lovenox) 40 mg SC DAILY [facility] PRN Reason: Protocol Insulin Human Lispro (Humalog) 0 units SC [facility] PRN Reason: Protocol Last Admin: 01/27/17 08:27 Dose: 2 unit Metformin HCl (Glucophage) 500 mg PO BIDWM [facility] Metoprolol Succinate (Toprol Xl) 25 mg PO DAILY [facility] Last Admin: 01/27/17 08:29 Dose: 25 mg - Labs Labs: 01/26/17 06:00 01/26/17 06:00 PT 9.8 Seconds (9.8-13.1) 01/24/17 18:23 INR 0.9 (0.9-1.2) 01/24/17 18:23 APTT 38.5 Seconds (25.6-37.1) H 01/24/17 18:23 - Constitutional Appears: Non-toxic, No Acute Distress, Other (tired and sleepy ) - Head Exam Head Exam: ATRAUMATIC, NORMAL INSPECTION, NORMOCEPHALIC - Eye Exam Eye Exam: EOMI, Normal appearance, PERRL Pupil Exam: NORMAL ACCOMODATION - ENT Exam ENT Exam: Mucous Membranes Moist, Normal Exam - Neck Exam Neck Exam: Full ROM, Normal Inspection - Respiratory Exam Respiratory Exam: Clear to Ausculation Bilateral, NORMAL BREATHING PATTERN. absent: Rales, Rhonchi, Wheezes - Cardiovascular Exam Cardiovascular Exam: REGULAR RHYTHM, RRR, +S1, +S2. absent: JVD - GI/Abdominal Exam GI & Abdominal Exam: Soft, Normal Bowel Sounds. absent: Distended, Guarding, Tenderness, Rebound - Rectal Exam Rectal Exam: Deferred - Extremities Exam Extremities Exam: Full ROM, Normal Capillary Refill, Normal Inspection. absent : Calf Tenderness, Pedal Edema - Back Exam Back Exam: NORMAL INSPECTION - Neurological Exam Neurological Exam: Alert, Awake, CN II-XII Intact, Oriented x3 - Psychiatric Exam Psychiatric exam: Flat Affect - Skin Skin Exam: Dry, Normal Color, Warm Assessment and Plan - Assessment and Plan (Free Text) Assessment: 76 years old male with hx of DM II on Januvia and Lantus , CVA,HTN who lives alone, brought in for evaluation after being found unresponsive with accu 2. In the ED he received 2 amps of D50 IV and became awake. While being monitored in Telemetry , the pt had bloody bowel movement and Gi was consulted He was transfused with 1 unit PRBC. Colonoscopy revealed hemorrhoids 1. Rectal Bleeding GI consulted- Dr Ruiz, s/p colonoscopy that showed hemorrhoids Hgb dropped from 11.2 to 8.7- dilution could also be a factor in lower Hgb. s/ p IVF for dehydation s/p 1 unit of PRBC with Hgb 11 today No more bleeding episodes noted continue PPI 2. DM II with Hypoglycemia and Coma, probably due to unintentional overdose of Lantus. Patient has poor vision and has errors in drawing up his Lantus into the Syringe. Hgb A1c 7.2 Will d/c lantus Start Metformin 500 mg po BId continue januvia Diabetic diet 3. Dehydration Received IV fluids NS at 125/hr 4. Anemia, acute on chronic sec to GI bleed and iron deficiency ally Irongiovani chronic iron deficiency anemia with acute GI bleeding s/p 1 unit PRBC Hgb 11 today received Venofer IV will start ferrous sulfate PO 5. Chronic CVA no focal weakness cont Lipitor, ASA 6. HTN low dose Toprol 7.DVT prophylaxis SCD lovenox
--- NOTE | 2017-01-27 17:41 | CP.PCM.PN ---
Subjective - Date & Time of Evaluation Date of Evaluation: 01/27/17 Time of Evaluation: 17:40 - Subjective Subjective: doing well Objective - Vital Signs/Intake and Output Vital Signs (last 24 hours): Temp Pulse Resp BP Pulse Ox 98.9 F 85 18 113/76 99 01/27/17 16:00 01/27/17 16:00 01/27/17 16:00 01/27/17 16:00 01/27/17 16:00 Intake and Output: 01/27/17 01/27/17 06:59 18:59 Intake Total 850 Balance 850 - Medications Medications: Current Medications Aspirin (Aspirin Chewable) 81 mg PO DAILY [facility] Atorvastatin Calcium (Lipitor) 20 mg PO DAILY [facility] Last Admin: 01/27/17 08:29 Dose: 20 mg Enoxaparin Sodium (Lovenox) 40 mg SC DAILY [facility] PRN Reason: Protocol Last Admin: 01/27/17 09:55 Dose: 40 mg Ferrous Sulfate (Feosol) 325 mg PO BID [facility] Insulin Human Lispro (Humalog) 0 units SC [facility]S [facility] PRN Reason: Protocol Last Admin: 01/27/17 13:01 Dose: 10 unit Metformin HCl (Glucophage) 500 mg PO BIDWM [facility] Metoprolol Succinate (Toprol Xl) 25 mg PO DAILY [facility] Last Admin: 01/27/17 08:29 Dose: 25 mg Sitagliptin Phosphate (Januvia) 100 mg PO DAILY [facility] - Labs Labs: 01/26/17 06:00 01/26/17 06:00 PT 9.8 Seconds (9.8-13.1) 01/24/17 18:23 INR 0.9 (0.9-1.2) 01/24/17 18:23 APTT 38.5 Seconds (25.6-37.1) H 01/24/17 18:23 - GI/Abdominal Exam GI & Abdominal Exam: Soft, Normal Bowel Sounds Assessment and Plan - Assessment and Plan (Free Text) Assessment: 76 yo male with rectal bleeding hgb stable dc planning colonoscopy in 2-4 weeks
[2017-01-27 23:47] VITALS: O2SAT 99
[2017-01-28 05:21] VITALS: PULSE 84
[2017-01-28] MEDS: Insulin Lispro (humaLOG) 100 Units/ml Inj SC SCH (06:51)
[2017-01-28 08:19] VITALS: TEMP 98.4
--- NOTE | 2017-01-28 09:30 | CP.PCM.DIS ---
Provider - Provider Date of Admission: 01/25/17 08:11 Attending physician: Pranay Siddiqi Primary care physician: Dr. Madrigal Consults: GI consult Time Spent in preparation of Discharge (in minutes): 20 Hospital Course - Lab Results Lab Results: Most Recent Lab Values WBC 7.1 K/uL (4.8-10.8) 01/26/17 06:00 RBC 4.16 Mil/uL (4.40-5.90) L 01/26/17 06:00 Hgb 11.6 g/dL (12.0-18.0) L 01/26/17 06:00 Hct 34.3 % (35.0-51.0) L 01/26/17 06:00 MCV 82.5 fl (80.0-94.0) 01/26/17 06:00 MCH 27.8 pg (27.0-31.0) 01/26/17 06:00 MCHC 33.7 g/dL (33.0-37.0) 01/26/17 06:00 RDW 14.3 % (11.5-14.5) 01/26/17 06:00 Plt Count 296 K/uL (130-400) 01/26/17 06:00 MPV 7.7 fl (7.2-11.7) 01/24/17 18:23 Neut % (Auto) 82.3 % (50.0-75.0) H 01/24/17 18:23 Lymph % (Auto) 7.3 % (20.0-40.0) L 01/24/17 18:23 [place] % (Auto) 5.1 % (0.0-10.0) 01/24/17 18:23 Eos % (Auto) 4.8 % (0.0-4.0) H 01/24/17 18:23 Baso % (Auto) 0.5 % (0.0-2.0) 01/24/17 18:23 Neut # 9.4 K/uL (1.8-7.0) H 01/24/17 18:23 Lymph # 0.8 K/uL (1.0-4.3) L 01/24/17 18:23 [place] # 0.6 K/uL (0.0-0.8) 01/24/17 18:23 Eos # 0.5 K/uL (0.0-0.7) 01/24/17 18:23 Baso # 0.1 K/uL (0.0-0.2) 01/24/17 18:23 Neutrophils % (Manual) 79 % (42-75) H 01/24/17 18:23 Band Neutrophils % 1 % (0-2) 01/24/17 18:23 Lymphocytes % (Manual) 8 % (20-50) L 01/24/17 18:23 Monocytes % (Manual) 5 % (0-10) 01/24/17 18:23 Eosinophils % (Manual) 6 % (0-7) 01/24/17 18:23 Basophils % (Manual) 1 % (0-2) 01/24/17 18: Platelet Estimate Normal (NORMAL) 01/24/17 18: Large Platelets Present 01/24/17 18:23 Anisocytosis (manual) Slight 01/24/17 18: PT 9.8 Seconds (9.8-13.1) 01/24/17 18: INR 0.9 (0.9-1.2) 01/24/17 18:23 APTT 38.5 Seconds (25.6-37.1) H 01/24/17 18:23 Sodium 136 mmol/l (132-148) 01/26/17 06:00 Potassium 3.7 MMOL/L (3.6-5.0) 01/26/17 06:00 Chloride 102 mmol/L (98-107) 01/26/17 06:00 Carbon Dioxide 25 mmol/L (22-30) 01/26/17 06:00 Anion Gap 12 (10-20) 01/26/17 06:00 BUN 10 mg/dl (9-20) 01/26/17 06:00 Creatinine 0.5 mg/dL (0.8-1.5) L 01/26/17 06:00 Est GFR ( Amer) > 60 01/26/17 06:00 Est GFR (Non-Af Amer) > 60 01/26/17 06:00 POC Glucose (mg/dL) 246 mg/dL (65-110) H 01/28/17 05:33 Random Glucose 181 mg/dL (75-110) H 01/26/17 06:00 Hemoglobin A1c 7.2 % (4.2-6.5) H 01/25/17 05:00 Calcium 8.6 mg/dL (8.4-10.2) 01/26/17 06:00 Iron 30 ug/dL (49-181) L 01/25/17 05:00 TIBC 304 ug/dL (250-450) 01/25/17 05:00 % Saturation 10 % (20-55) L 01/25/17 05:00 Total Bilirubin 0.2 mg/dl (0.2-1.3) 01/24/17 18:23 AST 28 U/L (17-59) 01/24/17 18:23 ALT 29 U/L (21-72) 01/24/17 18:23 Alkaline Phosphatase 105 U/L (38-126) 01/24/17 18:23 Troponin I < 0.0120 ng/mL (0.00-0.120) 01/24/17 18:23 Total Protein 9.1 G/DL (6.3-8.2) H 01/24/17 18:23 Albumin 4.4 g/dL (3.5-5.0) 01/24/17 18:23 Globulin 4.7 gm/dL (2.2-3.9) H 01/24/17 18:23 Albumin/Globulin Ratio 0.9 (1.0-2.1) L 01/24/17 18:23 Blood Type A POSITIVE 01/25/17 06:15 Blood Type Confirm A POSITIVE 01/25/17 07:15 Antibody Screen Negative 01/25/17 06:15 Crossmatch See Detail 01/25/17 06:15 BBK History Checked No verified bt 01/25/17 06:15 - Hospital Course Hospital Course: 76 years old male with hx of DM II on Januvia and Lantus , CVA,HTN who lives alone, brought in for evaluation after being found unresponsive with accu 2. In the ED he received 2 amps of D50 IV and became awake. While being monitored in Telemetry , the pt had bloody bowel movement and Gi was consulted He was transfused with 1 unit PRBC. Colonoscopy revealed hemorrhoids At present hemodynamically stable, afebrile, tolerating Po intake,stable H& H, no more episodes of rectal bleeding Blood work up revealed Hgb A1c 7.2 Insulin was discontinued since patient lives by himself and can not inject insulin himself as well as severe episode of hypoglycemia that brought him to hospital.Started metformin 850 mg po bid and Januvi a100 mg po daily Pt anthony appreciated and recommended physical therapy and [facility]. Will discharge patient today to [facility]. 1. Rectal Bleeding secondary to hemorrhoids GI consulted- Dr Ruiz, s/p colonoscopy that showed hemorrhoids Hgb dropped from 11.2 to 8.7- dilution could also be a factor in lower Hgb. s/ p IVF for dehydation s/p 1 unit of PRBC with Hgb 11 today No more bleeding episodes noted continue PPI 2. DM II with Hypoglycemia and Coma, probably due to unintentional overdose of Lantus. Patient has poor vision and has errors in drawing up his Lantus into the Syringe. Hgb A1c 7.2 Will d/c lantus Started Metformin 850 mg po BId continue januvia 100 mg po daily Diabetic diet 3. Dehydration Received IV fluids NS at 125/hr 4. Anemia, acute on chronic sec to GI bleed and iron deficiency low Irongiovani chronic iron deficiency anemia with acute GI bleeding s/p 1 unit PRBC Hgb 11 today received Venofer IV started ferrous sulfate PO 5. Chronic CVA no focal weakness cont Lipitor, ASA 6. HTN labile low dose Toprol Started Enalapril 7.DVT prophylaxis SCD lovenox Discharge Exam - Head Exam Head Exam: ATRAUMATIC, NORMAL INSPECTION, NORMOCEPHALIC - Eye Exam Eye Exam: PERRL Pupil Exam: NORMAL ACCOMODATION - ENT Exam ENT Exam: Mucous Membranes Moist, Normal Exam - Neck Exam Neck exam: Full Rom, Normal Inspection - Respiratory Exam Respiratory Exam: Clear to PA & Lateral, NORMAL BREATHING PATTERN. absent: Rales, Rhonchi, Wheezes - Cardiovascular Exam Cardiovascular Exam: REGULAR RHYTHM, RRR, +S1, +S2. absent: JVD - GI/Abdominal Exam GI & Abdominal Exam: Normal Bowel Sounds, Soft. absent: Distended, Guarding, Rebound, Tenderness - Rectal Exam Rectal Exam: Deferred - Extremities Exam Extremities exam: normal capillary refill, normal inspection, pedal pulses present - Neurological Exam Neurological exam: Alert, CN II-XII Intact, Oriented x3 - Psychiatric Exam Psychiatric exam: Flat Affect, Normal Affect - Skin Skin Exam: Dry, Normal Color, Warm Discharge Plan - Discharge Medications Prescriptions: Enalapril Maleate 5 mg PO DAILY #30 tablet metFORMIN [glucOPHAGE] 850 mg PO BID #60 tab - Follow Up Plan Condition: STABLE Disposition: TRANSF TO SNF Patient education suggested?: Yes Referrals: Artem Madrigal MD [Family Provider] -
[2017-01-28] MEDS: Enoxaparin 40 mg Syringe SC SCH (09:32)
[2017-01-28] MEDS: Metoprolol Succinate 25 mg XL Tab PO SCH (09:37)
[2017-01-28 09:39] VITALS: BP 177/90
--- NOTE | 2017-01-28 11:41 | CP.PCM.PN ---
Subjective - Date & Time of Evaluation Date of Evaluation: 01/28/17 Time of Evaluation: 11:30 - Subjective Subjective: doing well Objective - Vital Signs/Intake and Output Vital Signs (last 24 hours): Temp Pulse Resp BP Pulse Ox 98.4 F 84 18 177/90 H 99 01/28/17 08:18 01/28/17 09:37 01/28/17 08:18 01/28/17 09:37 01/28/17 08:18 - Medications Medications: Current Medications Aspirin (Aspirin Chewable) 81 mg PO DAILY [facility] Last Admin: 01/28/17 09:34 Dose: 81 mg Atorvastatin Calcium (Lipitor) 20 mg PO DAILY [facility] Last Admin: 01/28/17 09:33 Dose: 20 mg Enoxaparin Sodium (Lovenox) 40 mg SC DAILY [facility] PRN Reason: Protocol Last Admin: 01/28/17 09:32 Dose: 40 mg Ferrous Sulfate (Feosol) 325 mg PO BID [facility] Last Admin: 01/28/17 09:33 Dose: 325 mg Insulin Human Lispro (Humalog) 0 units SC [facility] PRN Reason: Protocol Last Admin: 01/28/17 06:51 Dose: 3 unit Metformin HCl (Glucophage) 500 mg PO BIDWM [facility] Last Admin: 01/28/17 08:37 Dose: 500 mg Metoprolol Succinate (Toprol Xl) 25 mg PO DAILY [facility] Last Admin: 01/28/17 09:37 Dose: 25 mg Sitagliptin Phosphate (Januvia) 100 mg PO DAILY [facility] Last Admin: 01/28/17 09:38 Dose: 100 mg - Labs Labs: 01/26/17 06:00 01/26/17 06:00 PT 9.8 Seconds (9.8-13.1) 01/24/17 18:23 INR 0.9 (0.9-1.2) 01/24/17 18:23 APTT 38.5 Seconds (25.6-37.1) H 01/24/17 18:23 - GI/Abdominal Exam GI & Abdominal Exam: Soft, Normal Bowel Sounds Assessment and Plan - Assessment and Plan (Free Text) Assessment: 76 yo male with brbpr doing well dc planning outpatient colonoscopy
--- NOTE | 2017-02-08 09:41 | CON ---
Dr. Juan Daniel Ruiz [facility] Chief complaint: Rectal bleeding HPI: 76 y/o male with a history of diabetes, first he came in for hypoglycemia and a ____episode, at which point he had a ____bowel movement which had blood in it. Pt last colonoscopy was___but he does not recall when and where. ____He denies any abdominal pain, no____, no heartburn, no reflux. Currently lying comfortable in no apparent distress. PMHx: as above Soc Hx as above ROS: as in HPI, so does positive in HPI____ PE Eyes: PEERL____ Neck: Supple, normal ROM, no appreciative lumps Heart: S1 S2 RRR Abdomen: Soft, non-tender,no organomegaly____ Labs he is currently Hb: 0.9 Hct: 6.2 ____192 Assessment and plan: I expected this is all an ischemic episode from the hypoglycemia sigmoid episode. However, given his age I order the colonoscopy for this patient for tomorrow, if not We will follow this patient with you. Thank you for the consult please dr. Isak Siddiqi. Juan Daniel Ruiz MD
== END 2017-01-28 12:20 | DRG 917 ==
LOC: EDBD 17:49 → H.ER 17:49 → INTOOBSV 20:28 → H.ERHOLD 20:28 → H.TEL 22:47 → MERGE 01-25 08:11 → OBSVTOIN 01-25 08:11 → H.TEL 01-25 19:55
PROVIDERS: ADMIT Internal Medicine; ATTEND Internal Medicine
PROC: 30233N1 Transfusion of Nonautologous Red Blood Cells into Peripheral Vein, Percutaneous Approach (ICD-10-PCS; 2017-01-25)
PROC: 0DJD8ZZ Inspection of Lower Intestinal Tract, Via Natural or Artificial Opening Endoscopic (ICD-10-PCS; principal; 2017-01-26 12:15)
DX: T38.3X1A Poisoning by insulin and oral hypoglycemic [antidiabetic] drugs, accidental (unintentional), initial encounter (principal); E11.641 Type 2 diabetes mellitus with hypoglycemia with coma; G93.89 Other specified disorders of brain; K92.1 Melena; E86.0 Dehydration; D62 Acute posthemorrhagic anemia; K64.8 Other hemorrhoids; D50.0 Iron deficiency anemia secondary to blood loss (chronic); K64.4 Residual hemorrhoidal skin tags; K57.30 Diverticulosis of large intestine without perforation or abscess without bleeding; I10 Essential (primary) hypertension; H54.7 Unspecified visual loss; Z79.4 Long term (current) use of insulin; Z86.73 Personal history of transient ischemic attack (TIA), and cerebral infarction without residual deficits; Z87.891 Personal history of nicotine dependence; Y92.009 Unspecified place in unspecified non-institutional (private) residence as the place of occurrence of the external cause

== ENCOUNTER 2017-06-07 07:27 | Day surgery (SDC) | payer MEDICARE, MEDICAID ==
[2017-06-07 08:03] VITALS: RESP 18
[2017-06-07 08:04] VITALS: BMI 19.5
[2017-06-07] MEDS ORDERED: Phenylephrine 2.5% Opht Soln OS ONE ×2 (08:23→09:00)
[2017-06-07] MEDS ORDERED: Flurbiprofen 0.3% Opht SOLN OU SCH (08:30)
[2017-06-07] MEDS ORDERED: Tropicamide 1% Opht 150 DROP/15 ML OS SCH (08:30)
[2017-06-07] MEDS ORDERED: Acetylcholine 1% Opth System Pack IO ONE (08:54)
[2017-06-07] MEDS ORDERED: Tetracaine 0.5% Ophth 2 ML BOTTLE ONE (08:54)
[2017-06-07] MEDS ORDERED: EPINEPHrine 1 mg/ml (1:1000) Inj ONE (08:55)
[2017-06-07] MEDS ORDERED: CA CL/K CL/NA CL 500 ML IR ONE (08:55)
[2017-06-07] MEDS ORDERED: BSS 15 ML 30 ML IR ONE (08:55)
[2017-06-07] MEDS ORDERED: Chondroitin/Hyaluronate Opth Syringe KIT (0.55 ml-0.5 ml) IO ONE (08:55)
[2017-06-07] MEDS ORDERED: BSS 15 ML 15 ML IR ONE (08:55)
[2017-06-07] MEDS ORDERED: Povidone Iodine 5% Opht SOLUTION ONE (08:56)
[2017-06-07] MEDS ORDERED: Flurbiprofen 0.3% Opht SOLN OU ONE ×2 (09:00)
[2017-06-07] MEDS ORDERED: Tropicamide 1% Opht 150 DROP/15 ML LEFTEYE ONE (09:00)
[2017-06-07] MEDS ORDERED: Midazolam 2 MG/2 ML VIAL ONE (11:28)
[2017-06-07] MEDS ORDERED: Lidocaine 1% 20 MG/2 ML PF AMP EP ONE (11:46)
[2017-06-07] MEDS ORDERED: Lactated Ringer's 500 ML IV ONE (11:48)
[2017-06-07] MEDS: Pilocarpine 1% Opht Soln ONE ×2 (11:55→12:05)
[2017-06-07] MEDS: Maxitrol Opht Susp ONE ×2 (11:55→12:05)
[2017-06-07 14:00] VITALS: BP 155/90; PULSE 75; TEMP 97.6; O2SAT 100
--- NOTE | 2017-06-13 12:14 | OP ---
PROCEDURE DATE : 06/07/2017 SURGEON: GONZÁLEZ VARGHESE MD ANESTHESIOLOGIST: NEHA KATZ MD ANESTHESIA: LOCAL / IV SEDATION PREOPERATIVE DIAGNOSIS: CATARACT LEFT EYE. POSTOPERATIVE DIAGNOSIS: CATARACT LEFT EYE. OPERATION: CLEAR CORNEAL PHACOEMULSIFICATION WITH LENS IMPLANT LEFT EYE. PREPARATION AND PROCEDURE: After the patient was prepped and draped in the usual manner for sterile ophthalmic surgery, local IV sedation was administered ; eye seals were applied to the upper and lower lid margins and an adult wire lid speculum was placed within the lids. Under microsurgical control, a two- step clear corneal incision was made into the anterior chamber. The initial incision was perpendicular to the corneal plane. The second incision with the keratome was placed at a 45-degree angle to the first incision. One cc of one percent Xylocaine MPF was instilled into the anterior chamber to achieve proper intraocular anesthesia. At this time, the Viscoelastic was injected into the anterior chamber for protection of the endothelium and for maintenance of the chamber depth. A 360-degree continuous curvilinear capsulorrhexis was performed using a pre-bent 25-gauge needle. Hydrodissection and hydrodelineation were performed using a Cardenas cannula and balanced salt solution. Utilizing the tip of the Cardenas cannula, the nucleus was rotated freely within the capsular bag. A standard one-handed phacoemulsification was utilized at this time for sculpting and rotating of the nucleus. The nucleus was fragmented in its entirety and aspirated without any consequence. A standard I&A was carried out for the residual cortical material. No residual material was noted within the capsular bag. The posterior capsule was noted to be clear. Additional Viscoelastic was injected into the capsular bag in preparation for lens implantation. After this has been satisfactorily achieved the intraocular lens injected through the corneal incision into the capsular bag. The intraocular lens was manipulated until it was properly oriented and the Viscoelastic was evacuated from the capsular bag and anterior chamber. The anterior chamber was reformed with balanced salt solution. The corneal incision was irrigated with BSS. The intraocular pressure was found to be within normal limits. This terminated the procedure. The speculum and lid drapes were removed. TobraDex ophthalmic suspension and Pilocarpine 1% drops one drop was applied to the eye. POSTOPERATIVE CONDITION: The patient was brought to the Post anesthesia Recovery area with stable vital signs. DGONZÁLEZ CIFUENTES MD
== END 2017-06-07 14:43 | disposition home or self-care (01) ==
LOC: H.OPSURG 07:27
PROVIDERS: ATTEND Ophthalmology
DX: H25.812 Combined forms of age-related cataract, left eye (principal); E11.9 Type 2 diabetes mellitus without complications; I10 Essential (primary) hypertension
CPT/HCPCS: 66984; 82948; J0171; J2250; J3010; J7120; V2632

== ENCOUNTER 2017-06-21 08:33 | Day surgery (SDC) | payer MEDICARE, MEDICAID ==
[2017-06-21] MEDS ORDERED: Maxitrol Opht Susp ONE (09:26)
[2017-06-21] MEDS ORDERED: Lidocaine 1% 20 MG/2 ML PF AMP ONE (09:26)
[2017-06-21] MEDS ORDERED: Tetracaine 0.5% Ophth 2 ML BOTTLE ONE (09:26)
[2017-06-21] MEDS ORDERED: Acetylcholine 1% Opth System Pack IO ONE ×4 (09:26→12:44)
[2017-06-21] MEDS ORDERED: EPINEPHrine 1 mg/ml (1:1000) Inj ONE (09:26)
[2017-06-21] MEDS ORDERED: BSS 15 ML 45 ML IR ONE (09:27)
[2017-06-21] MEDS ORDERED: CA CL/K CL/NA CL 500 ML IR ONE (09:27)
[2017-06-21] MEDS ORDERED: Chondroitin/Hyaluronate Opth Syringe KIT (0.55 ml-0.5 ml) IO ONE ×3 (09:27→12:44)
[2017-06-21] MEDS ORDERED: Pilocarpine 1% Opht Soln ONE (09:27)
[2017-06-21] MEDS ORDERED: Povidone Iodine 5% Opht SOLUTION ONE (09:28)
[2017-06-21] MEDS ORDERED: Flurbiprofen 0.3% Opht SOLN OD ONE (09:45)
[2017-06-21] MEDS ORDERED: Phenylephrine 2.5% Opht Soln OD ONE (09:45)
[2017-06-21] MEDS ORDERED: Tropicamide 1% Opht 150 DROP/15 ML OD ONE (09:45)
[2017-06-21] MEDS ORDERED: Lactated Ringer's 1,000 ML IV ONE (10:00)
[2017-06-21] MEDS ORDERED: Tetracaine 0.5% Ophth 2 ML BOTTLE OU ONE ×3 (12:02→12:43)
[2017-06-21] MEDS ORDERED: Lidocaine 1% 20 MG/2 ML PF AMP EP ONE ×3 (12:03→12:44)
[2017-06-21] MEDS ORDERED: EPINEPHrine 1 mg/ml (1:1000) Inj IV ONE ×3 (12:06→12:44)
[2017-06-21] MEDS ORDERED: Maxitrol Opht Susp OS ONE ×3 (12:09→12:44)
[2017-06-21] MEDS ORDERED: Povidone Iodine 5% Opht SOLUTION OU ONE ×3 (12:09→12:44)
[2017-06-21] MEDS ORDERED: Pilocarpine 1% Opht Soln OS ONE ×3 (12:10→12:44)
[2017-06-21] MEDS ORDERED: Midazolam 2 MG/2 ML VIAL ONE (12:30)
[2017-06-21 15:01] VITALS: BP 160/82; PULSE 72; RESP 18; TEMP 97.6; O2SAT 98
--- NOTE | 2017-06-23 11:14 | OP ---
PROCEDURE DATE : 06/21/2017 SURGEON: GONZÁLEZ VARGHESE MD ANESTHESIOLOGIST: NEHA KATZ MD ANESTHESIA: LOCAL / IV SEDATION PREOPERATIVE DIAGNOSIS: CATARACT RIGHT EYE. POSTOPERATIVE DIAGNOSIS: CATARACT RIGHT EYE. OPERATION: CLEAR CORNEAL PHACOEMULSIFICATION WITH LENS IMPLANT RIGHT EYE. PREPARATION AND PROCEDURE: After the patient was prepped and draped in the usual manner for sterile ophthalmic surgery, local IV sedation was administered ; eye seals were applied to the upper and lower lid margins and an adult wire lid speculum was placed within the lids. Under microsurgical control, a two- step clear corneal incision was made into the anterior chamber. The initial incision was perpendicular to the corneal plane. The second incision with the keratome was placed at a 45-degree angle to the first incision. One cc of one percent Xylocaine MPF was instilled into the anterior chamber to achieve proper intraocular anesthesia. At this time, the Viscoelastic was injected into the anterior chamber for protection of the endothelium and for maintenance of the chamber depth. A 360-degree continuous curvilinear capsulorrhexis was performed using a pre-bent 25-gauge needle. Hydrodissection and hydrodelineation were performed using a Cardenas cannula and balanced salt solution. Utilizing the tip of the Cardenas cannula, the nucleus was rotated freely within the capsular bag. A standard one-handed phacoemulsification was utilized at this time for sculpting and rotating of the nucleus. The nucleus was fragmented in its entirety and aspirated without any consequence. A standard I&A was carried out for the residual cortical material. No residual material was noted within the capsular bag. The posterior capsule was noted to be clear. Additional Viscoelastic was injected into the capsular bag in preparation for lens implantation. After this has been satisfactorily achieved the intraocular lens injected through the corneal incision into the capsular bag. The intraocular lens was manipulated until it was properly oriented and the Viscoelastic was evacuated from the capsular bag and anterior chamber. The anterior chamber was reformed with balanced salt solution. The corneal incision was irrigated with BSS. The intraocular pressure was found to be within normal limits. This terminated the procedure. The speculum and lid drapes were removed. TobraDex ophthalmic suspension and Pilocarpine 1% drops one drop was applied to the eye. POSTOPERATIVE CONDITION: The patient was brought to the Post anesthesia Recovery area with stable vital signs. DGONZÁLEZ CIFUENTES MD
== END 2017-06-21 15:30 | disposition home or self-care (01) ==
LOC: H.OPSURG 08:33
PROVIDERS: ATTEND Ophthalmology
DX: H25.11 Age-related nuclear cataract, right eye (principal); E11.9 Type 2 diabetes mellitus without complications; E78.5 Hyperlipidemia, unspecified; I10 Essential (primary) hypertension; M19.90 Unspecified osteoarthritis, unspecified site
CPT/HCPCS: 66984; 82948; J0171; J2250; J3010; J7120; V2632

== ENCOUNTER 2018-06-08 21:23 | Emergency (ER) | payer MEDICARE, MEDICAID ==
[2018-06-08 21:24] VITALS: BMI 19.5
[2018-06-08 22:04] LABS: MEAN CELL VOLUME 80.9 fl (80.0-94.0); MEAN CORPUSCULAR HGB CONC 28.4 g/dL (33.0-37.0); RBC 2.84 Mil/uL (4.40-5.90); RED CELL DISTRIBUTION WIDTH 17.2 % (11.5-14.5)
--- NOTE | 2018-06-08 22:06 | ED PDOC ---
HPI: General Adult Time Seen by Provider: 06/08/18 21:33 Chief Complaint (Nursing): Abnormal Labs History Per: Patient, EMS History/Exam Limitations: no limitations Additional Complaint(s): Hx of anemia, GIB, Diverticulosis sent from [facility] for anemia. Patient was found to have a Hgb of 6.3 and was sent for transfusion. Patient st ates "I feel fine" and has no complaints, denies bloody/dark stools, vomiting, abdominal pain, or any other symptoms. Past Medical History Reviewed: Historical Data, Nursing Documentation, Vital Signs Vital Signs: Last Vital Signs Temp 98.4 F 06/08/18 21:25 Pulse 85 06/08/18 21:25 Resp 18 06/08/18 21:25 BP 168/90 H 06/08/18 21:25 Pulse Ox 100 06/08/18 21:25 - Medical History PMH: Anemia, Diabetes, Gastritis, HTN, Hypercholesterolemia, Chronic Kidney Disease Denies: HIV - Family History Family History: States: Unknown Family Hx, Diabetes - Immunization History Hx Tetanus Toxoid Vaccination: No Hx Influenza Vaccination: No Hx Pneumococcal Vaccination: No - Home Medications Home Medications: Ambulatory Orders Medication Instructions Recorded Acetaminophen [Tylenol 325mg tab] 650 mg PO Q6 PRN #30 tab 09/26/16 Atorvastatin [Lipitor] 20 mg PO DAILY tab 01/28/17 Metoprolol Succinate XL [Toprol XL] 25 mg PO DAILY tab 01/28/17 Enalapril Maleate [Vasotec] 5 mg PO DAILY 06/07/17 Famotidine [Pepcid] 20 mg PO DAILY 06/07/17 Linagliptin [Tradjenta] 5 mg PO DAILY 06/07/17 metFORMIN [glucOPHAGE] 1,000 mg PO BID 06/07/17 - Allergies Allergies/Adverse Reactions: Allergies Allergy/AdvReac Type Severity Reaction Status Date / Time No Known Allergies Allergy Verified 06/08/18 21:25 Review of Systems ROS Statement: Except As Marked, All Systems Reviewed And Found Negative Physical Exam - Reviewed Nursing Documentation Reviewed: Yes Vital Signs Reviewed: Yes - Physical Exam Appears: Positive for: Non-toxic, No Acute Distress. Negative for: Well (Frail) Head Exam: Positive for: ATRAUMATIC, NORMAL INSPECTION, NORMOCEPHALIC Skin: Positive for: Normal Color, Warm, DRY Eye Exam: Positive for: Normal appearance, EOMI, PERRL, Other (No conjuncival pallor) ENT: Positive for: Normal ENT Inspection Neck: Positive for: Normal, Painless ROM Cardiovascular/Chest: Positive for: Regular Rate, Rhythm Respiratory: Positive for: CNT, Normal Breath Sounds Gastrointestinal/Abdominal: Positive for: Normal Exam, Soft Back: Positive for: Normal Inspection Extremity: Positive for: Normal ROM Neurologic/Psych: Positive for: Alert, physical therapy nurse II-XII, Oriented. Negative for: Motor/Sensory Deficits - Laboratory Results Result Diagrams: 06/08/18 21:48 - ECG O2 Sat by Pulse Oximetry: 100 Pulse Ox Interpretation: Normal Medical Decision Making Medical Decision MakinPM Patient presenting with anemia, sent for transfusion --Patient is very well appearing with stable vitals --Will check Hgb and transfuse 21:48 Labs reviewed, patient with Hgb of 6.5 22:26 Patient consents to blood transfusion; nursing orders placed. 600 Hematoma seen from infiltrated IV, ice and bandaging placed. [address] Kearney pending re-eval. Disposition - Clinical Impression Clinical Impression: Anemia, IV infiltration - Disposition Disposition: Transfer of Care Disposition Time: 07:00 Condition: FAIR Instructions: Normocytic Normochromic Anemia, IV Infiltration Forms: [employer] (Guamanian) Patient Signed Over To: Bashir Kearney Handoff Comments: pending re-eval
[2018-06-08 22:08] LABS: HEMOGLOBIN 6.5 g/dL (12.0-18.0)
[2018-06-09] MEDS ORDERED: Morphine 4 MG/ML VIAL IVP STA (06:39)
[2018-06-09] MEDS ORDERED: Morphine 4 MG/ML VIAL ONE (06:53)
--- NOTE | 2018-06-09 07:30 | ED PDOC ---
- Laboratory Results Result Diagrams: 06/08/18 21:48 - ECG O2 Sat by Pulse Oximetry: 100 (RA) Pulse Ox Interpretation: Normal Medical Decision Making Medical Decision Making: Time: 0700 Patient endorsed to provider by Dr. James, pending reassessment. ----- Scribe Attestation: Documented by Kodi Alexander, acting as a scribe for Bashir Kearney MD. Provider Scribe Attestation: All medical record entries made by the Scribe were at my direction and personally dictated by me. I have reviewed the chart and agree that the record accurately reflects my personal performance of the history, physical exam, medical decision making, and the department course for this patient. I have also personally directed, reviewed, and agree with the discharge instructions and disposition. Disposition - Clinical Impression Clinical Impression: Anemia, IV infiltration - POA Present On Arrival: None - Disposition Disposition: [facility] Disposition Time: 08:34 Condition: FAIR Instructions: Normocytic Normochromic Anemia, IV Infiltration Forms: [employer] ? (Salvadorean)
[2018-06-09 07:33] VITALS: TEMP 98.3
[2018-06-09 07:57] VITALS: BP 184/99; PULSE 83; RESP 18
[2018-06-09 08:35] VITALS: O2SAT 100
== END 2018-06-09 08:48 | disposition home or self-care (01) ==
LOC: H.ER 21:23
DX: D64.9 Anemia, unspecified (principal); T80.89XA Other complications following infusion, transfusion and therapeutic injection, initial encounter; N18.9 Chronic kidney disease, unspecified; Z79.84 Long term (current) use of oral hypoglycemic drugs; I12.9 Hypertensive chronic kidney disease with stage 1 through stage 4 chronic kidney disease, or unspecified chronic kidney disease; E78.00 Pure hypercholesterolemia, unspecified
CPT/HCPCS: 36430; 85027; 86850; 86900; 86920; 96374; 99283; J2270; P9051

== ENCOUNTER 2018-08-28 21:31 | Inpatient (IN) | payer MEDICARE, MEDICAID ==
[2018-08-28 21:31] VITALS: BMI 19.5
[2018-08-28 22:39] LABS: BASO # 0.1 K/uL (0.0-0.2); EOS # 0.9 K/uL (0.0-0.7); INR 0.9; LYMPH # 1.3 K/uL (1.0-4.3); LYMPH % 16.7 % (20.0-40.0); MEAN CORPUSCULAR HEMOGLOBIN 25.5 pg (27.0-31.0); MEAN CORPUSCULAR HGB CONC 31.5 g/dL (33.0-37.0); MEAN PLATELET VOLUME 8.2 fl (7.2-11.7); MONO # 0.8 K/uL (0.0-0.8); MONO % 9.9 % (0.0-10.0); NEUT # 4.7 K/uL (1.8-7.0); NEUT % 60.4 % (50.0-75.0); NRBC % 1.2 % (0.0-0.0); RBC 1.65 Mil/uL (4.40-5.90); RED CELL DISTRIBUTION WIDTH 21.4 % (11.5-14.5); WHITE BLOOD COUNT 7.8 K/uL (4.8-10.8)
[2018-08-28 22:44] LABS: ALBUMIN 3.2 g/dL (3.5-5.0); ALT/SGPT 19 U/L (21-72); AST/SGOT 21 U/L (17-59); BLOOD UREA NITROGEN 11 mg/dl (9-20); CALCIUM 8.6 mg/dL (8.4-10.2); GFR NON-AFRICAN AMERICAN > 60
[2018-08-28 22:48] LABS: HEMOGLOBIN 4.2 g/dL (12.0-18.0)
[2018-08-28 23:27] LABS: PROTHROMBIN TIME 9.8 Seconds (9.8-13.1)
--- NOTE | 2018-08-28 23:55 | ED PDOC ---
HPI: General Adult Time Seen by Provider: 08/28/18 21:45 Chief Complaint (Nursing): Abnormal Labs Chief Complaint (Provider): Abnormal Labs History Per: Patient History/Exam Limitations: no limitations Additional Complaint(s): 78 years old male with a history of diabetes, hypertension, hyperlipidemia, anemia and iron infusions [facility] from [facility] for blood transfusion for acute anemia. According to [facility], patient has a hemoglobin level below 5. PMD: Hamzah Castañeda Past Medical History Reviewed: Historical Data, Nursing Documentation, Vital Signs Vital Signs: Last Vital Signs Temp 98.5 F 08/28/18 22:38 Pulse 92 H 08/28/18 22:38 Resp 18 08/28/18 22:38 BP 129/71 08/28/18 22:38 Pulse Ox 100 08/28/18 22:38 - Medical History PMH: Anemia, Diabetes, Gastritis, HTN, Hypercholesterolemia, Chronic Kidney Disease Denies: HIV - Surgical History Surgical History: No Surg Hx - Family History Family History: States: Unknown Family Hx, Diabetes - Social History Current smoker - smoking cessation education provided: No Alcohol: None Drugs: Denies - Immunization History Hx Tetanus Toxoid Vaccination: No Hx Influenza Vaccination: No Hx Pneumococcal Vaccination: No - Home Medications Home Medications: Ambulatory Orders Medication Instructions Recorded RX: Enalapril Maleate [Vasotec] 5 mg PO DAILY 06/07/17 RX: metFORMIN [glucOPHAGE] 1,000 mg PO BID 06/07/17 Acetaminophen [Tylenol 325mg tab] 650 mg PO Q4 PRN MDD 3000 MG 08/29/18 Amino Acids/Protein Hydr/Fiber 30 mg PO DAILY 08/29/18 [Pro-Stat Renal Care Liquid] Aspirin [Aspirin Chewable] 81 mg PO DAILY 08/29/18 Calcium Carbonate [Calcium] 500 mg PO DAILY 08/29/18 Docusate [Colace] 100 mg PO HS 08/29/18 Epoetin Edilberto [Procrit] 10,000 unit SC MWF 08/29/18 Insulin Glargine, Recombina 15 unit SC HS 08/29/18 [Lantus] Insulin Lispro [humALOG] See Protocol SC QID 08/29/18 Linagliptin [Tradjenta] 5 mg PO DAILY 08/29/18 Polyethylene Glycol/Polyvinyl 1 drop BOTHEYES QID 08/29/18 [Artificial Tears] RX: Acetaminophen [Tylenol 325mg 650 mg PO Q6 PRN 08/29/18 tab] RX: Atorvastatin [Lipitor] 10 mg PO HS 08/29/18 RX: Ferrous Sulfate [Feosol] 325 mg PO DAILY 08/29/18 RX: Metoprolol Succinate [Toprol 25 mg PO DAILY 08/29/18 Xl] - Allergies Allergies/Adverse Reactions: Allergies Allergy/AdvReac Type Severity Reaction Status Date / Time No Known Allergies Allergy Verified 08/28/18 21:35 Review of Systems ROS Statement: Except As Marked, All Systems Reviewed And Found Negative Constitutional: Positive for: Other (Acute anemia) Physical Exam - Reviewed Nursing Documentation Reviewed: Yes Vital Signs Reviewed: Yes - Physical Exam Appears: Positive for: Well, No Acute Distress Head Exam: Positive for: ATRAUMATIC, NORMOCEPHALIC Skin: Positive for: Normal Color, Warm, Dry, Pallor Eye Exam: Positive for: Normal appearance, EOMI, PERRL ENT: Positive for: Normal ENT Inspection Neck: Positive for: Normal, Painless ROM, Supple Cardiovascular/Chest: Positive for: Regular Rate, Rhythm. Negative for: Murmur Respiratory: Positive for: Normal Breath Sounds. Negative for: Respiratory Distress Gastrointestinal/Abdominal: Positive for: Normal Exam, Soft. Negative for: Tenderness Back: Positive for: Normal Inspection. Negative for: L CVA Tenderness, R CVA Tenderness Extremity: Positive for: Normal ROM. Negative for: Pedal Edema, Swelling Neurologic/Psych: Positive for: Alert, Oriented (x3) - Laboratory Results Result Diagrams: 08/28/18 22:15 08/28/18 22:15 Lab Results: PT 9.8 Seconds (9.8-13.1) 08/28/18 22:15 INR 0.9 08/28/18 22:15 Total Bilirubin < 0.1 mg/dl (0.2-1.3) L 08/28/18 22:15 AST 21 U/L (17-59) 08/28/18 22:15 ALT 19 U/L (21-72) L D 08/28/18 22:15 Alkaline Phosphatase 90 U/L (38-126) 08/28/18 22:15 Total Protein 6.4 G/DL (6.3-8.2) 08/28/18 22:15 Albumin 3.2 g/dL (3.5-5.0) L D 08/28/18 22:15 Globulin 3.2 gm/dL (2.2-3.9) 08/28/18 22:15 Albumin/Globulin Ratio 1.0 (1.0-2.1) 08/28/18 22:15 - ECG O2 Sat by Pulse Oximetry: 100 (RA) Pulse Ox Interpretation: Normal Medical Decision Making Medical Decision Making: Time: 2151 Initial Plan: acute on chronic anemia --Type and screen --CMP --CBC --PTT 0002 pt extremely anemic, pt informed of results and risk/beneift of the transfusion. Patient is admitted to hospitalist. Dr hook aware. Scribe Attestation: Documented by Mony Rao, acting as a scribe for Noelle Mendoza MD. Provider Scribe Attestation: All medical record entries made by the Scribe were at my direction and personally dictated by me. I have reviewed the chart and agree that the record accurately reflects my personal performance of the history, physical exam, medical decision making, and the department course for this patient. I have also personally directed, reviewed, and agree with the discharge instructions and disposition. Disposition - Clinical Impression Clinical Impression: Anemia - Patient ED Disposition Is Patient to be Admitted: Yes Counseled Patient/Family Regarding: Studies Performed, Diagnosis - Disposition Disposition Time: 00:00 Condition: STABLE
--- NOTE | 2018-08-29 00:51 | CP.PCM.HP ---
History of Present Illness - History of Present Illness History of Present Illness: 78 yo male with a history of insulin dependent diabetes, hypertension, hyperlipidemia, anemia and iron infusions sent from residential due to acute anemia and reported Hgb level less than 5. Found to have Hgb 4.2 in ED. Pt is asymptomatic, BP normotensive in ED. Pt is poor historian and states he has no medical history and no medical problems, but knows he is here because his "blood is low" and knows he needs a transfusion, however states he lives alone and not in a residential (came from [facility]). History obtained from chart review. Denies chest pain, palpitations, dizziness, blood in stool, blood in urine, blood coming from any orifice, denies taking blood thinners in the past. Review of records show pt had colonoscopy in January 2017; colon prep was poor; external and internal hemorrhoids were seen as well as diverticulosis. PMD: Hamzah Castañeda Past Med hx: IDDM, HTN, HLD, anemia Past Surg hx: denies, none? Social hx: former tobacco use, former alcohol use; none now FH: [place] Allergies: NKDA Meds: med rec received from [facility]; reconciled In ED: Vitals: BP 138/70, HR 90, RR 18, SpO2 100 on RA, Temp 98.5 CBC revealed Hgb 4.2; no leukocytosis, normal plt count Coag INR 0.9 CMP: relatively unremarkable T&S done 2U PRBC ordered; not started yet at time of eval Present on Admission - Present on Admission Any Indicators Present on Admission: Yes History of Uncontrolled Diabetes: Yes Review of Systems - Review of Systems Review of Systems: as per hpi - Cardiovascular Cardiovascular: absent: Chest Pain, Palpitations - Respiratory Respiratory: absent: Cough, Dyspnea - Gastrointestinal Gastrointestinal: absent: Melena, Vomiting - Genitourinary Genitourinary: absent: Dysuria - Neurological Neurological: absent: Dizziness Past Patient History - Past Medical History & Family History Past Medical History?: Yes - Past Social History Smoking Status: Former Smoker Alcohol: None Drugs: Denies Home Situation {Lives}: Detention - CARDIAC Hx Cardiac Disorders: Yes Hx Hypercholesterolemia: Yes Hx Hypertension: Yes - PULMONARY Hx Respiratory Disorders: No - NEUROLOGICAL Hx Neurological Disorder: No - HEENT Hx HEENT Problems: No - RENAL Hx Chronic Kidney Disease: No - ENDOCRINE/METABOLIC Hx Endocrine Disorders: Yes Hx Diabetes Mellitus Type 2: Yes - HEMATOLOGICAL/ONCOLOGICAL Hx Anemia: Yes Hx Human Immunodeficiency Virus (HIV): No - INTEGUMENTARY Hx Dermatological Problems: No - MUSCULOSKELETAL/RHEUMATOLOGICAL Hx Musculoskeletal Disorders: Yes Hx Falls: Yes Hx Osteoarthritis: Yes - GASTROINTESTINAL Hx Gastritis: Yes - GENITOURINARY/GYNECOLOGICAL Hx Genitourinary Disorders: Yes Hx Incontinence: Yes (USES DIAPER) - PSYCHIATRIC Hx Psychophysiologic Disorder: No Hx Emotional Abuse: No Hx Physical Abuse: No Hx Substance Use: No - SURGICAL HISTORY Hx Surgeries: No Hx Herniorrhaphy: Yes (inguinal x2) Other/Comment: inguinal hernia repair x2 - ANESTHESIA Hx Anesthesia: No Hx Anesthesia Reactions: No Hx Malignant Hyperthermia: No Meds Allergies/Adverse Reactions: Allergies Allergy/AdvReac Type Severity Reaction Status Date / Time No Known Allergies Allergy Verified 08/28/18 21:35 Physical Exam - Constitutional Appears: No Acute Distress, Chronically Ill - Head Exam Head Exam: NORMAL INSPECTION - Eye Exam Additional comments: no conjunctival pallor - ENT Exam ENT Exam: Mucous Membranes Moist - Respiratory Exam Respiratory Exam: NORMAL BREATHING PATTERN. absent: Respiratory Distress Additional comments: good air movement b/l - Cardiovascular Exam Cardiovascular Exam: REGULAR RHYTHM, +S1, +S2 - GI/Abdominal Exam GI & Abdominal Exam: Normal Bowel Sounds, Soft. absent: Tenderness - Extremities Exam Extremities exam: Positive for: normal capillary refill, normal inspection. Negative for: calf tenderness, tenderness - Neurological Exam Neurological exam: Alert - Psychiatric Exam Psychiatric exam: Normal Mood - Skin Skin Exam: Dry, Warm Results - Vital Signs Recent Vital Signs: Last Vital Signs Temp 98.5 F 08/28/18 22:38 Pulse 92 H 08/28/18 22:38 Resp 18 08/28/18 22:38 BP 129/71 08/28/18 22:38 Pulse Ox 100 08/29/18 00:11 - Labs Result Diagrams: 08/28/18 22:15 08/28/18 22:15 Labs: Laboratory Results - last 24 hr 08/28/18 08/28/18 08/28/18 22:15 22:15 22:15 WBC 7.8 RBC 1.65 L Hgb 4.2 L* D Hct 13.4 L MCV 81.0 MCH 25.5 L MCHC 31.5 L RDW 21.4 H Plt Count 319 MPV 8.2 Neut % (Auto) 60.4 Lymph % (Auto) 16.7 L Hartley % (Auto) 9.9 Eos % (Auto) 12.0 H Baso % (Auto) 1.0 Neut # (Auto) 4.7 Lymph # (Auto) 1.3 Hartley # (Auto) 0.8 Eos # (Auto) 0.9 H Baso # (Auto) 0.1 PT 9.8 INR 0.9 Sodium 137 Potassium 4.1 Chloride 101 Carbon Dioxide 25 Anion Gap 15 BUN 11 Creatinine 0.7 L Est GFR ( Amer) > 60 Est GFR (Non-Af Amer) > 60 Random Glucose 121 H Calcium 8.6 Total Bilirubin < 0.1 L AST 21 ALT 19 L D Alkaline Phosphatase 90 Total Protein 6.4 Albumin 3.2 L D Globulin 3.2 Albumin/Globulin Ratio 1.0 Blood Type Antibody Screen BBK History Checked 08/28/18 22:30 WBC RBC Hgb Hct MCV MCH MCHC RDW Plt Count MPV Neut % (Auto) Lymph % (Auto) Hartley % (Auto) Eos % (Auto) Baso % (Auto) Neut # (Auto) Lymph # (Auto) Hartley # (Auto) Eos # (Auto) Baso # (Auto) PT INR Sodium Potassium Chloride Carbon Dioxide Anion Gap BUN Creatinine Est GFR ( Amer) Est GFR (Non-Af Amer) Random Glucose Calcium Total Bilirubin AST ALT Alkaline Phosphatase Total Protein Albumin Globulin Albumin/Globulin Ratio Blood Type A POSITIVE Antibody Screen Negative BBK History Checked Patient has bt Assessment & Plan - Assessment and Plan (Free Text) Assessment: 78 yo male with a history of insulin dependent diabetes, hypertension, hyperlipidemia, anemia and iron infusions sent from residential due to acute anemia and reported Hgb level less than 5. Found to have Hgb 4.2 in ED. Pt is asymptomatic, BP normotensive in ED, HR in 90s. Plan: Acute Anemia - Admitted to tele; continuous monitoring - Hgb 4.2 - Type and screen done - Iron, TIBC, ferritin, transferrin, folate,B12, TSH ordered prior to beginning blood transfusion - 2U PRBC ordered - FOBT - Continue home med ferrous sulfate; home med procrit?? - post-transfusion CBC, BMP IDDM2 - Home dose insulin restarted - Home med Januvia; hold for now due to NPO status - Accuchecks, insulin coverage scale and hypoglycemia protocol Hypertension - Home med enalapril 5 mg daily, metoprolol succinate 25 mg po daily - Hold aspirin Hyperlipidemia - Home med atorvastatin Diet/GI - NPO for now - Colace 100 mg BID - Protonix DVT prophylaxis - SCDs only for now Pt seen/discussed w/ Dr. Barajas.
[2018-08-29 01:51] LABS: IRON < 10 ug/dL (49-181)
[2018-08-29 02:02] LABS: % IRON SATURATION 9 % (20-55); TOTAL IRON BINDING CAPACITY 273 ug/dL (250-450)
[2018-08-29 02:18] LABS: FERRITIN 5.2 ng/Ml (17.9-464)
[2018-08-29] MEDS ORDERED: Dextrose 50% SYRINGE Inj (50 ml) IV PRN ×2 (04:17→07:31)
[2018-08-29] MEDS ORDERED: Glucagon Recombinant 1 mg Inj IM PRN ×2 (04:17→07:31)
[2018-08-29] MEDS ORDERED: Pneumococcal 23-Valent Vaccine IM ONE (06:00)
[2018-08-29] MEDS: Insulin Lispro (humaLOG) 100 Units/ml Inj SC SCH ×4 (06:51→21:37)
[2018-08-29] MEDS: Metoprolol Succinate 25 mg XL Tab PO SCH (08:33)
[2018-08-29] MEDS: Artificial Tears Opht Soln OU SCH ×4 (08:34→21:38)
--- NOTE | 2018-08-29 11:49 | CARD ---
APPROVED REPORT Date of service: 08/29/2018 EKG Measurement Heart [id number] OR 130P [id number] <Conclusion> Normal sinus rhythm Minimal voltage criteria for LVH, may be normal variant ST & T wave abnormality, consider lateral ischemia Abnormal ECG
[2018-08-29 13:17] LABS: FOLATE 10.7 ng/mL
[2018-08-29] MEDS: Insulin Regular 100 units/ml SC SCH ×3 (14:22→21:37)
[2018-08-29 14:50] LABS: BASO % 0.7 % (0.0-2.0); EOS # 0.6 K/uL (0.0-0.7); EOS % 10.3 % (0.0-4.0); LYMPH # 0.7 K/uL (1.0-4.3); MEAN CORPUSCULAR HEMOGLOBIN 25.3 pg (27.0-31.0); MEAN CORPUSCULAR HGB CONC 31.6 g/dL (33.0-37.0); MEAN PLATELET VOLUME 7.6 fl (7.2-11.7); MONO # 0.5 K/uL (0.0-0.8); MONO % 8.6 % (0.0-10.0); NEUT # 4.2 K/uL (1.8-7.0); NEUT % 69.4 % (50.0-75.0); NRBC % 0.2 % (0.0-0.0); RBC 2.44 Mil/uL (4.40-5.90); RED CELL DISTRIBUTION WIDTH 18.7 % (11.5-14.5)
[2018-08-29 14:58] LABS: HEMOGLOBIN 6.2 g/dL (12.0-18.0)
[2018-08-29 15:06] LABS: BLOOD UREA NITROGEN 9 mg/dl (9-20); CALCIUM 7.8 mg/dL (8.4-10.2); GFR NON-AFRICAN AMERICAN > 60
[2018-08-29] MEDS ORDERED: Insulin Detemir 100 Units/ml Inj SC SCH (22:00)
[2018-08-30 05:59] LABS: BLOOD UREA NITROGEN 13 mg/dl (9-20); CALCIUM 8.1 mg/dL (8.4-10.2); GFR NON-AFRICAN AMERICAN > 60
[2018-08-30 07:15] LABS: BASO # 0.1 K/uL (0.0-0.2); BASO % 0.8 % (0.0-2.0); EOS # 1.4 K/uL (0.0-0.7); EOS % 13.2 % (0.0-4.0); LYMPH # 1.7 K/uL (1.0-4.3); LYMPH % 16.4 % (20.0-40.0); MEAN CORPUSCULAR HEMOGLOBIN 27.4 pg (27.0-31.0); MEAN PLATELET VOLUME 8.4 fl (7.2-11.7); MONO % 9.4 % (0.0-10.0); NEUT # 6.4 K/uL (1.8-7.0); NEUT % 60.2 % (50.0-75.0); RBC 3.08 Mil/uL (4.40-5.90); RED CELL DISTRIBUTION WIDTH 18.8 % (11.5-14.5); WHITE BLOOD COUNT 10.6 K/uL (4.8-10.8)
[2018-08-30 07:24] LABS: HEMOGLOBIN 8.4 g/dL (12.0-18.0)
[2018-08-30] MEDS: Artificial Tears Opht Soln OU SCH ×3 (08:44→16:34)
[2018-08-30] MEDS: Metoprolol Succinate 25 mg XL Tab PO SCH (08:46)
[2018-08-30] MEDS: Insulin Lispro (humaLOG) 100 Units/ml Inj SC SCH (08:48)
[2018-08-30] MEDS ORDERED: EPOETIN ALFA 10,000 UNIT/ML ML SC SCH (09:00)
[2018-08-30] MEDS: Insulin Regular 100 units/ml SC SCH ×3 (10:49→16:33)
--- NOTE | 2018-08-30 10:55 | CP.PCM.DIS ---
<Kassie Valdez - Last Filed: 08/30/18 11:58> Provider - Provider Date of Admission: 08/29/18 00:01 Attending physician: Dany Barajas MD Consults: 08/29/18 07:12 Physician Consult Routine Comment: Consulting Provider: Juan Daniel Ruiz Consulting Physician: Juan Daniel Ruiz Reason for Consult: severe anemia; prior GIB Time Spent in preparation of Discharge (in minutes): 35 Hospital Course - Lab Results Lab Results: Most Recent Lab Values WBC 10.6 K/uL (4.8-10.8) D 08/30/18 07:11 RBC 3.08 Mil/uL (4.40-5.90) L 08/30/18 07:11 Hgb 8.4 g/dL (12.0-18.0) L D 08/30/18 07:11 Hct 25.6 % (35.0-51.0) L 08/30/18 07:11 MCV 83.0 fl (80.0-94.0) D 08/30/18 07:11 MCH 27.4 pg (27.0-31.0) 08/30/18 07:11 MCHC 33.0 g/dL (33.0-37.0) 08/30/18 07:11 RDW 18.8 % (11.5-14.5) H 08/30/18 07:11 Plt Count 273 K/uL (130-400) 08/30/18 07:11 MPV 8.4 fl (7.2-11.7) 08/30/18 07:11 Neut % (Auto) 60.2 % (50.0-75.0) 08/30/18 07:11 Lymph % (Auto) 16.4 % (20.0-40.0) L 08/30/18 07:11 Duchesne % (Auto) 9.4 % (0.0-10.0) 08/30/18 07:11 Eos % (Auto) 13.2 % (0.0-4.0) H 08/30/18 07:11 Baso % (Auto) 0.8 % (0.0-2.0) 08/30/18 07:11 Neut # (Auto) 6.4 K/uL (1.8-7.0) 08/30/18 07:11 Lymph # (Auto) 1.7 K/uL (1.0-4.3) 08/30/18 07:11 Duchesne # (Auto) 1.0 K/uL (0.0-0.8) H 08/30/18 07:11 Eos # (Auto) 1.4 K/uL (0.0-0.7) H 08/30/18 07:11 Baso # (Auto) 0.1 K/uL (0.0-0.2) 08/30/18 07:11 PT 9.8 Seconds (9.8-13.1) 08/28/18 22:15 INR 0.9 08/28/18 22:15 Sodium 136 mmol/l (132-148) 08/30/18 05:00 Potassium 3.9 MMOL/L (3.6-5.0) 08/30/18 05:00 Chloride 99 mmol/L (98-107) 08/30/18 05:00 Carbon Dioxide 26 mmol/L (22-30) 08/30/18 05:00 Anion Gap 15 (10-20) 08/30/18 05:00 BUN 13 mg/dl (9-20) 08/30/18 05:00 Creatinine 0.8 mg/dl (0.8-1.5) 08/30/18 05:00 Est GFR ( Amer) > 60 08/30/18 05:00 Est GFR (Non-Af Amer) > 60 08/30/18 05:00 POC Glucose (mg/dL) 177 mg/dL (65-110) H 08/30/18 05:28 Random Glucose 179 mg/dL (75-110) H 08/30/18 05:00 Calcium 8.1 mg/dL (8.4-10.2) L 08/30/18 05:00 Iron < 10 ug/dL (49-181) L 08/29/18 01:25 TIBC 273 ug/dL (250-450) 08/29/18 01:25 % Saturation 9 % (20-55) L 08/29/18 01:25 Transferrin 187.87 mg/dL (206-381) L 08/29/18 01:25 Ferritin 5.2 ng/Ml (17.9-464) L 08/29/18 01:25 Total Bilirubin < 0.1 mg/dl (0.2-1.3) L 08/28/18 22:15 AST 21 U/L (17-59) 08/28/18 22:15 ALT 19 U/L (21-72) L D 08/28/18 22:15 Alkaline Phosphatase 90 U/L (38-126) 08/28/18 22:15 Total Protein 6.4 G/DL (6.3-8.2) 08/28/18 22:15 Albumin 3.2 g/dL (3.5-5.0) L D 08/28/18 22:15 Globulin 3.2 gm/dL (2.2-3.9) 08/28/18 22:15 Albumin/Globulin Ratio 1.0 (1.0-2.1) 08/28/18 22:15 Vitamin B12 671 pg/mL (239-931) 08/29/18 01:25 Folate 10.7 ng/mL 08/29/18 01:25 TSH 3rd Generation 1.05 mIU/ML (0.46-4.68) 08/29/18 01:25 Stool Occult Blood Negative (NEGATIVE) 08/29/18 09:00 Blood Type A POSITIVE 08/28/18 22:30 Antibody Screen Negative 08/28/18 22:30 Crossmatch See Detail 08/28/18 22:30 BBK History Checked Patient has bt 08/28/18 22:30 - Hospital Course Hospital Course: 78 y/o M admitted for further management of severe anemia (acute on chronic) noted on screening labs in alf & found to be 4.2 in ED. Patient received 4 units of PRBC and 1 pack of FFP. Repeat hemoglobin this AM was 8.4. Patient has continued to remain asymptomatic during hospital stay. Dr. Malone, GI, was consulted. Colonscopy was done in the past during previous admission for anemia, but prep prior to procedure was poor. Patient did not follow up as outpatient for repeat testing. Dr. Malone was consulted during this admission and recommended outpatient follow up. Patient was seen and examined this morning. He was sitting upright, awake and alert without any complaints. Plan: 1. Anemia (acute on chronic) - Increased ferrous sulfate 325mg PO BID - C/w epoetin janes 10,000 units SC MWF -C/w calcium carbonate 500mg PO QD -C/w protonix 40mg PO QD 2. IDDM2 - C/w home dose of insulin - C/w linagliptin 5 mg PO QD -C/w metformin 850mg PO BID 3. Hypertension - C/w enalapril 5 mg kami & metoprolol succinate 25 mg po daily - Discontinued aspirin 4. Hyperlipidemia - C/w atorvastatin 10mg PO HS Discharge Exam - Head Exam Head Exam: ATRAUMATIC, NORMOCEPHALIC - ENT Exam ENT Exam: Mucous Membranes Moist - Respiratory Exam Respiratory Exam: absent: Wheezes, Respiratory Distress Additional comments: rales noted, but no wheezing or rhonchi - Cardiovascular Exam Cardiovascular Exam: REGULAR RHYTHM, +S1, +S2 - GI/Abdominal Exam GI & Abdominal Exam: Normal Bowel Sounds, Soft. absent: Guarding, Rigid, Tenderness - Neurological Exam Neurological exam: Alert, Oriented x3 - Psychiatric Exam Psychiatric exam: Normal Affect, Normal Mood - Skin Skin Exam: Dry, Intact Discharge Plan - Discharge Medications Prescriptions: Albuterol/Ipratropium [Duoneb 3 MG/3 Ml-0.5 MG/3 Ml 3 Ml] 3 ml IH Q6 PRN 30 Days #1 neb PRN Reason: Wheezing Ferrous Sulfate 325 mg PO BID 30 Days #60 tablet Pantoprazole Sodium [Protonix] 40 mg PO DAILY 30 Days #30 ect - Follow Up Plan Condition: STABLE Disposition: TRANSF TO SNF Instructions: Anemia of Chronic Disease (DC) Additional Instructions: -Please follow up with Dr. Ruiz for outpatient EGD and colonoscopy. -Please follow up with Dr. Annette Wheat for further workup of chronic anemia. Referrals: Juan Daniel Ruiz MD, PhD [Staff Provider] - Cony Wheat MD [Staff Provider] - <Denice Beard - Last Filed: 08/30/18 19:08> Provider - Provider Date of Admission: 08/29/18 00:01 Attending physician: Dany Barajas MD Consults: 08/29/18 07:12 Physician Consult Routine Comment: Consulting Provider: Juan Daniel Ruiz Consulting Physician: Juan Daniel Ruiz Reason for Consult: severe anemia; prior GIB Hospital Course - Lab Results Lab Results: Most Recent Lab Values WBC 10.6 K/uL (4.8-10.8) D 08/30/18 07:11 RBC 3.08 Mil/uL (4.40-5.90) L 08/30/18 07:11 Hgb 8.4 g/dL (12.0-18.0) L D 08/30/18 07:11 Hct 25.6 % (35.0-51.0) L 08/30/18 07:11 MCV 83.0 fl (80.0-94.0) D 08/30/18 07:11 MCH 27.4 pg (27.0-31.0) 08/30/18 07:11 MCHC 33.0 g/dL (33.0-37.0) 08/30/18 07:11 RDW 18.8 % (11.5-14.5) H 08/30/18 07:11 Plt Count 273 K/uL (130-400) 08/30/18 07:11 MPV 8.4 fl (7.2-11.7) 08/30/18 07:11 Neut % (Auto) 60.2 % (50.0-75.0) 08/30/18 07:11 Lymph % (Auto) 16.4 % (20.0-40.0) L 08/30/18 07:11 Duchesne % (Auto) 9.4 % (0.0-10.0) 08/30/18 07:11 Eos % (Auto) 13.2 % (0.0-4.0) H 08/30/18 07:11 Baso % (Auto) 0.8 % (0.0-2.0) 08/30/18 07:11 Neut # (Auto) 6.4 K/uL (1.8-7.0) 08/30/18 07:11 Lymph # (Auto) 1.7 K/uL (1.0-4.3) 08/30/18 07:11 Duchesne # (Auto) 1.0 K/uL (0.0-0.8) H 08/30/18 07:11 Eos # (Auto) 1.4 K/uL (0.0-0.7) H 08/30/18 07:11 Baso # (Auto) 0.1 K/uL (0.0-0.2) 08/30/18 07:11 Retic Count 4.2 % (0.5-1.5) H 08/30/18 10:50 PT 9.8 Seconds (9.8-13.1) 08/28/18 22:15 INR 0.9 08/28/18 22:15 Sodium 136 mmol/l (132-148) 08/30/18 05:00 Potassium 3.9 MMOL/L (3.6-5.0) 08/30/18 05:00 Chloride 99 mmol/L (98-107) 08/30/18 05:00 Carbon Dioxide 26 mmol/L (22-30) 08/30/18 05:00 Anion Gap 15 (10-20) 08/30/18 05:00 BUN 13 mg/dl (9-20) 08/30/18 05:00 Creatinine 0.8 mg/dl (0.8-1.5) 08/30/18 05:00 Est GFR ( Amer) > 60 08/30/18 05:00 Est GFR (Non-Af Amer) > 60 08/30/18 05:00 POC Glucose (mg/dL) 342 mg/dL (65-110) H 08/30/18 16:04 Random Glucose 179 mg/dL (75-110) H 08/30/18 05:00 Calcium 8.1 mg/dL (8.4-10.2) L 08/30/18 05:00 Iron < 10 ug/dL (49-181) L 08/29/18 01:25 TIBC 273 ug/dL (250-450) 08/29/18 01:25 % Saturation 9 % (20-55) L 08/29/18 01:25 Transferrin 187.87 mg/dL (206-381) L 08/29/18 01:25 Ferritin 5.2 ng/Ml (17.9-464) L 08/29/18 01:25 Total Bilirubin < 0.1 mg/dl (0.2-1.3) L 08/28/18 22:15 AST 21 U/L (17-59) 08/28/18 22:15 ALT 19 U/L (21-72) L D 08/28/18 22:15 Alkaline Phosphatase 90 U/L (38-126) 08/28/18 22:15 Total Protein 6.4 G/DL (6.3-8.2) 08/28/18 22:15 Albumin 3.2 g/dL (3.5-5.0) L D 08/28/18 22:15 Globulin 3.2 gm/dL (2.2-3.9) 08/28/18 22:15 Albumin/Globulin Ratio 1.0 (1.0-2.1) 08/28/18 22:15 Vitamin B12 671 pg/mL (239-931) 08/29/18 01:25 Folate 10.7 ng/mL 08/29/18 01:25 TSH 3rd Generation 1.05 mIU/ML (0.46-4.68) 08/29/18 01:25 Stool Occult Blood Negative (NEGATIVE) 08/29/18 09:00 Blood Type A POSITIVE 08/28/18 22:30 Antibody Screen Negative 08/28/18 22:30 Crossmatch See Detail 08/28/18 22:30 BBK History Checked Patient has bt 08/28/18 22:30 Attending/Attestation - Attestation I have personally seen and examined this patient.: Yes I have fully participated in the care of the patient.: Yes I have reviewed all pertinent clinical information, including history, physical exam and plan: Yes Notes (Text): Severe Iron Deficiency Anemia , etiology to be determined , needs further work up - Hgb 4.2 on admission - pt transfused 4 units PRBC and 1 FFP - GI consulted - Dr Ruiz- rec further outpt GI work up as outpt - Stool Guaiac negative -further Hematology work up as outpt - cont Protonix HTN uncontrolled -cont Toprol and Enalapril, added Norvasc COPD chronic started on Duoneb tx prn Pt has no signs of bleeding, H/H stable post transfusion , VS stable, cleared by GI for d/c Tolerating PO diet, ambulating to the bathroom will discharge pt back to [facility]
[2018-08-30] MEDS ORDERED: Albuterol-Ipratrop 3 mg / 0.5 (3 ml) UD INH STA (13:12)
[2018-08-30] MEDS ORDERED: Insulin Detemir 100 Units/ml Inj SC STA (15:35)
[2018-08-30 16:25] VITALS: BP 157/76; PULSE 88; RESP 16; TEMP 98.6; O2SAT 95
--- NOTE | 2018-08-30 23:09 | CON ---
DATE: 08/29/2018 REFERRING PHYSICIAN: Denice Beard MD REASON FOR CONSULTATION: Anemia. HISTORY OF PRESENT ILLNESS: This is a 78-year-old male who is a poor historian and noncompliant with the exam, basically has profound anemia and has episodes often and was recently scoped about a year ago for upper and lower discerning no real source of bleeding. Now comes in with anemia. no rectal bleeding, hematemesis or hematochezia. Currently, the patient is lying in bed, sleeping, in no apparent distress. PAST MEDICAL HISTORY: As above. PAST SURGICAL HISTORY: As above. REVIEW OF SYSTEMS: All other systems have been reviewed and negative apart from the HPI. PHYSICAL EXAMINATION: GENERAL: This is well-nourished, pleasant elderly-appearing male, lying in bed, comfortably, in no apparent distress. VITAL SIGNS: Here in the hospital are grossly unremarkable. HEENT: Head: Normocephalic, atraumatic. Eyes: Pupils are equally reactive to light bilaterally. No conjunctival pallor or icterus. NECK: Supple. Normal range of motion. No lymphadenopathy appreciated. LUNGS: Coarse breath sounds bilaterally. HEART: S1, S2. Regular rate and rhythm. No murmurs appreciated. ABDOMEN: Soft, nontender. Bowel sounds present. No rebound. No guarding. RECTAL: Deferred. EXTREMITIES: Pulses felt bilaterally. SKIN: Warm, dry, and intact. NEUROLOGIC: A and O x2. LABORATORY DATA: Labs and radiology have been reviewed. WBC of 10.2, hemoglobin 8.5 after transfusions, hematocrit 25.6. Sugar is 328. ASSESSMENT AND PLAN: This is a 78-year-old male with anemia, planned for outpatient workup, wants transfusion. Thank you for the consult. Juan Daniel Ruiz MD/ PhD cc: Denice Beard MD
== END 2018-08-30 16:50 | DRG 812 ==
LOC: H.ER 21:31 → H.ERHOLD 08-29 00:01 → H.TEL 08-29 01:49
PROVIDERS: ADMIT Internal Medicine; ATTEND Internal Medicine
PROC: 30233K1 Transfusion of Nonautologous Frozen Plasma into Peripheral Vein, Percutaneous Approach (ICD-10-PCS; principal; 2018-08-29)
PROC: 30233N1 Transfusion of Nonautologous Red Blood Cells into Peripheral Vein, Percutaneous Approach (ICD-10-PCS; 2018-08-30)
DX: D50.8 Other iron deficiency anemias (principal); E11.9 Type 2 diabetes mellitus without complications; I10 Essential (primary) hypertension; K57.90 Diverticulosis of intestine, part unspecified, without perforation or abscess without bleeding; E78.5 Hyperlipidemia, unspecified; E78.00 Pure hypercholesterolemia, unspecified; J44.9 Chronic obstructive pulmonary disease, unspecified; K29.70 Gastritis, unspecified, without bleeding; Z79.4 Long term (current) use of insulin; Z87.891 Personal history of nicotine dependence; Z91.19 Patient's noncompliance with other medical treatment and regimen